=== PATIENT | male | born 1945 | race Caucasian/White ===

== ENCOUNTER 2020-09-29 06:43 | Emergency (ER) | payer OTHER, SELFPAY ==
--- NOTE | ~2020-09-29 | CT_ITS ---
EXAMINATION: CT abdomen pelvis wo con DATE: 09/29/2020 07:22 INDICATION: Flank pain TECHNIQUE: Computed tomography (CT) of the abdomen and pelvis was performed without intravenous contr ast. The dose-length product (DLP) was 761.84 mGy-cm. Automated exposure control and iterative recons truction technique were employed. COMPARISON: None FINDINGS: The lung bases are clear. The heart size is normal. There is a small sliding hiatal hernia. The liver is diffusely low in attenuation when compared with the spleen, consistent with hepatic deloris atosis. Punctate calcifications in an otherwise normal spleen likely represent healed granulomatous d isease. Stones are present in the nondistended gallbladder. The pancreas and adrenal glands are virgin[place] l. There is a 3 mm nonobstructing stone of the left kidney. The right kidney is unremarkable. There i s calcified atherosclerosis of the aorta and many of the other arteries. No pathologically enlarged a bdominal or pelvic lymph nodes are identified. There is no free intraperitoneal gas or evidence of ebonie wel obstruction. There is moderate lumbar spondylosis. Colonic diverticulosis is noted. No definite d iverticulitis is identified. There is mild distention of the urinary bladder. The prostate is enlarge d. The appendix is normal. IMPRESSION: 1. Nonobstructing left nephrolithiasis. Reviewed, dictated and finalized at location A.
[2020-09-29 06:50] VITALS: BP 153/94; PULSE 110; RESP 18; O2SAT 97
[2020-09-29] MEDS: SODIUM CHLORIDE 0.9% IV 1,000 ML 999 ML IV CONT (07:03)
[2020-09-29] MEDS: ONDANSETRON INJ 4 MG/2 ML VIAL IV PUSH (07:03)
[2020-09-29 07:10] LABS: Basophils Absolute Auto 0.1 K/mm3 (0.0-0.1); Basophils Percent Auto 0.3 % (0.2-1.2); Eosinophils Percent Auto 0.1 % (0-4.4); Hematocrit 44.5 % (42.0-52.0); Immature Granulocyte Absolute 0.13 K/mm3 (0.00-0.031); Immature Granulocyte Percent A 0.9 % (0-0.5); Lymphocytes Absolute Auto 3.46 K/mm3 (0.9-3.2); Lymphocytes Percent Auto 23.3 % (18.3-44.2); Mean Corpuscular Hemoglobin 29.9 pg (26-34); Mean Corpuscular Volume 83.2 fl (80-100); Mean Platelet Volume 10.2 fl (7.4-10.4); Monocytes Absolute Auto 1.2 K/mm3 (0.1-0.6); Monocytes Percent Auto 7.7 % (2.6-8.5); Neutrophils Percent Auto 67.7 % (45.5-73.1); Platelet Count Result 345 k/mm3 (150-375); Red Blood Count 5.35 M/mm3 (4.6-6.20); Red Cell Distribution Width 12.7 % (11.5-14.5); White Blood Count 14.8 K/mm3 (4.5-10.0)
[2020-09-29 07:21] LABS: Alanine Aminotransferase 30 U/L (4-50); Albumin Level 4.7 g/dL (3.5-5.1); Alkaline Phosphatase 92 U/L (38-126); Anion Gap 10 mmol/L (8-16); Aspartate Amino Transferase 38 U/L (17-59); Bilirubin,Total 1.5 mg/dL (0.2-1.3); Blood Urea Nitrogen 15 mg/dL (9-20); Calcium 9.8 mg/dL (8.4-10.2); Carbon Dioxide 28 mmol/L (22-30); Chloride 97 mmol/L (98-107); Estimated CRCL calculation 78 ml/min; Estimated Glomerular Filt Rate > 60; Glucose 141 mg/dL (75-110); Lipase 137 U/L (23-300); Potassium 3.4 mmol/L (3.4-5.0); Sodium 135 mmol/L (137-145)
[2020-09-29 07:24] LABS: Add Urine Microscopic? YES; Appearance Urine Cloudy (Clear); Bacteria Urine Trace /hpf; Bilirubin Urine Negative (Negative); Blood Urine Negative (Negative); Color Urine Yellow (Yellow); Glucose Urine UA Negative (Negative); Ketones Urine Negative (Negative); Leukocyte Esterase Ur Negative LEU/UL (Negative); Mucus Urine Rare /lpf; Nitrate Urine Negative (Negative); Protein Urine 1+ mg/dL (Negative); Specific Grav Ur 1.021 (1.001-1.035); WBC Urine 0-3 /hpf
--- NOTE | 2020-09-29 07:41 | ED.ABDPAIN ---
HPI - Abdominal Pain General Chief Complaint: Urogenital-Male Stated Complaint: I think i have a kidney stone Time Seen by Provider: 09/29/20 07:11 Source: patient and family Mode of arrival: ambulatory Limitations: no limitations History of Present Illness HPI narrative: 74-year-old male History of hypertension Complains of a 1 day history of increasing lower abdominal/groin pain along with some difficulty urinating or a feeling like he could alleviate his symptoms by urinating Pain is more or less in the midline and does not lateralize to either flank No associated nausea or vomiting, no hematuria or dysuria, no diarrhea or constipation Related Data Home Medications Medication Instructions Recorded Confirmed atorvastatin 09/29/20 lisinopril 09/29/20 pantoprazole PO 09/29/20 Allergies Allergy/AdvReac Type Severity Reaction Status Date / Time No Known Allergies Allergy Unverified 09/29/20 07:18 Review of Systems Review of Systems: All systems reviewed & are unremarkable except as noted in HPI and below Constitutional: Constitutional: Reports no additional constitutional complaints, Denies chills, Denies fever(s) and Denies headache(s) Eyes: Eyes: Reports no additional eye complaints and Denies change in vision ENT: Denies headache(s) and Denies sore throat Cardiovascular: Cardiovascular: Denies chest pain and Denies dyspnea Respiratory: Respiratory: Denies cough and Denies dyspnea Gastrointestinal: Gastrointestinal: Reports abdominal pain, Reports bloating, Denies diarrhea and Denies vomiting Genitourinary: Genitourinary: Reports oliguria, Denies dysuria and Denies urinary frequency Musculoskeletal: Musculoskeletal: Denies deformity, Denies arthralgias, Denies joint swelling and Denies numbness Integumentary/Breasts: Skin/Breast: Denies rash and Denies wounds Neurologic: Denies headache(s) Psychiatric: Psychiatric: Reports no additional psychiatric complaints Endocrine: Endocrine: Reports no additional endocrine complaints Hematologic/Lymphatic: Hematologic/Lymphatic: Reports no additional hematologic/lymphatic complaints Allergic/Immunologic: Allergic/Immunologic: Reports no additional allergic/immunologic complaints Exam Const: General: cooperative, no acute distress and alert Nutritional Appearance: obese Orientation/consciousness: patient oriented x3 (alert) HENMT: Head: normal to inspection, normocephalic and atraumatic Ears: external ears normal General nose exam: no epistaxis Eyes: Conjunctivae: conjunctivae normal EOM: EOMs intact bilaterally Neck: Neck: normal visual inspection, supple and no JVD Resp: Effort & Inspection: normal respiratory effort and not labored Auscultation: other (BS =) GI: GI Palp: Yes Soft to palpation, Yes Tenderness to palpation present (GI), No Guarding due to palpation present (GI), No Rigid due to palpation and No Rebound tenderness present Other: Mild diffuse tenderness, primarily suprapubic : General: Yes no CVA tenderness Testes: Testes normal Other: Bladder is not palpable but suprapubic area is uncomfortable with palpation Large prostate, not tender, not nodular Skin: General skin exam: normal color and no rashes or lesions noted Neuro: General: patient oriented x3 (alert) and moves all extremities Speech: normal speech Extrem: General: normal to inspection Psych: Affect: normal affect Course Course Emergency Course: ~1000 cc out w/ relief d/w gu for f/u Vital Signs Vital signs: Vital Signs Pulse Rate 110 H 09/29/20 06:50 Respiratory Rate 18 09/29/20 06:50 Blood Pressure 153/94 H 09/29/20 06:50 Pulse Oximetry 97 09/29/20 06:50 Pulse Rate 102 H 09/29/20 08:25 Respiratory Rate 18 09/29/20 08:25 Blood Pressure 139/91 H 09/29/20 08:25 Pulse Oximetry 96 09/29/20 08:25 MDM - Abdominal Pain Lab Data Result diagrams: 09/29/20 07:01 09/29/20 07:01 Labs:
[2020-09-29 08:25] VITALS: BP 139/91; PULSE 102; RESP 18; O2SAT 96
[2020-09-29] MEDS: TAMSULOSIN HCL 0.4 MG CAPSULE PO (08:53)
[2020-09-29 09:05] VITALS: BP 118/81; PULSE 92; RESP 18; O2SAT 99
== END 2020-09-29 09:09 | disposition home or self-care (01) ==
PROVIDERS: Emergency Medicine; Emergency Provider Emergency Medicine
DX: N40.1 Benign prostatic hyperplasia with lower urinary tract symptoms (principal); R33.8 Other retention of urine; I10 Essential (primary) hypertension; N20.0 Calculus of kidney
CPT/HCPCS: 36415; 51702; 74176; 80053; 81001; 83690; 85025; 96361; 96374; 99284; A9270; J2405; J7030

== ENCOUNTER 2021-04-30 01:21 | Emergency (ER) | payer OTHER, SELFPAY ==
--- NOTE | ~2021-04-30 | CT_ITS ---
EXAMINATION: CT cervical spine wo con DATE: 04/30/2021 02:36 INDICATION: Fall with head injury TECHNIQUE: Computed tomography (CT) of the cervical spine was performed without intravenous contrast. Automated exposure control and iterative reconstruction technique were employed. The dose-length pro duct was 477.21 mGy-cm. COMPARISON: None FINDINGS: Mild cervical dextrocurvature. Sagittal alignment is normal. Vertebral body heights are normal. No fr acture. Severe atlantoaxial osteoarthritis. Severe disc height loss at C3-C4, moderate disc height lo ss at C6-C7 and T1-T2. Mild disc height loss at the remaining cervical levels. Mild atherosclerotic c alcification at the bilateral carotid bulbs. Cervical soft tissues are otherwise unremarkable. Visual ized airway and apices of lungs are clear. The following disc levels are specifically discussed: C2-C3: Disc is bulging. There is mild bilateral uncovertebral joint osteoarthritis. There is severe b ilateral facet joint osteoarthritis. There is mild right and mild to moderate left neural foraminal s tenosis. There is mild central canal stenosis. C3-C4: Posterior disc osteophyte complex. There is severe bilateral uncovertebral joint osteoarthriti s. There is moderate right and severe left facet joint osteoarthritis. There is moderate right and mo derate to severe left neural foraminal stenosis. There is mild to moderate central canal stenosis. C4-C5: Disc is bulging. There is mild left and moderate right uncovertebral joint osteoarthritis. The re is moderate right and severe left facet joint osteoarthritis. There is mild bilateral neural brijesh inal stenosis. There is mild central canal stenosis. C5-C6: Disc is mildly bulging. There is mild bilateral uncovertebral joint osteoarthritis. There is m oderate to severe bilateral facet joint osteoarthritis. There is mild bilateral neural foraminal sten osis. There is minimal central canal stenosis. C6-C7: Disc is bulging. There is moderate left and severe right uncovertebral joint osteoarthritis. T here is mild to moderate right and moderate to severe left facet joint osteoarthritis. There is mild to moderate bilateral neural foraminal stenosis. There is mild central canal stenosis. C7-T1: The disc does not extend beyond the endplate margin. There is mild bilateral uncovertebral erica nt osteoarthritis. There is moderate left and severe right facet joint osteoarthritis. There is minim al bilateral neural foraminal stenosis. There is no central canal stenosis. IMPRESSION: 1. Moderate to severe cervical spondylosis. No acute osseous abnormality. Reviewed, dictated and finalized at location B. UNIT OPERATOR
--- NOTE | ~2021-04-30 | XR_ITS ---
EXAMINATION: XR shoulder RT min 2V DATE: 04/30/2021 02:22 INDICATION: Right shoulder pain. TECHNIQUE: 3 views of right shoulder were obtained. COMPARISON: None. FINDINGS: There is anterior dislocation of humeral head with respect to glenoid. There is a displaced oblique fracture of lateral humeral head and surgical neck. There are osteophytes of the glenoid. Th ere is severe acromioclavicular joint osteoarthritis. IMPRESSION: 1. Anterior right shoulder dislocation. 2. Two-part fracture of proximal right humerus. 3. Severe acromioclavicular joint osteoarthritis. Reviewed, dictated and finalized at location A. RAM ASSISTANT
--- NOTE | ~2021-04-30 | CT_ITS ---
EXAMINATION: CT brain wo con DATE: 04/30/2021 02:36 INDICATION: Head injury. TECHNIQUE: Computed tomography (CT) of the head was performed without intravenous contrast. The mA wa s adjusted according to patient size. Iterative reconstruction technique was employed. The dose-lengt h product was 681.00 mGy-cm. COMPARISON: None FINDINGS: There are scattered areas of low attenuation in the cerebral white matter. There is no intr acranial hemorrhage, acute infarction, or abnormal intracranial mass lesion. The ventricles are virgin[place] l in size. There is extensive dental disease. There is mild mucosal thickening in the ethmoid sinuses . The mastoid air cells are normal. The orbits are normal. There is a right frontal scalp laceration. IMPRESSION: 1. Moderate nonspecific cerebral white matter disease, which likely represents chronic small vessel i schemic disease. Reviewed, dictated and finalized at location A. LL ASSEMBLER IMPRESSION: 1. Moderate nonspecific cerebral white matter disease, which likely represents chronic small vessel ischemic disease.
[2021-04-30 01:32] VITALS: BP 181/94; PULSE 83; RESP 20; TEMP 36.1; O2SAT 98
--- NOTE | 2021-04-30 01:59 | PC.NURSE ---
Lidocaine w/ 1% epi per EDP Manolo GOOD
--- NOTE | 2021-04-30 02:38 | ECG_ITS ---
Measurements Intervals [place] Rate: 87 P: 73 FL: 166 QRS: 58 QRSD: 98 T: 93 QT: 397 QTc: 478 Interpretive Statements SINUS RHYTHM ATRIAL PREMATURE COMPLEX INCOMPLETE RIGHT BUNDLE BRANCH BLOCK BORDERLINE ST-T WAVE ABNORMALITY- ANTEROLAT-HIGH LAT LEADS BASELINE ARTIFACT- II, III, AVR, AVL, AVF, V1-V6 BORDERLINE ECG Electronically Signed On 04-30-2021 5:41:39 DIET AIDE by William Ng D.O.
[2021-04-30 03:06] LABS: Basophils Absolute Auto 0.1 K/mm3 (0.0-0.1); Basophils Percent Auto 0.4 % (0.2-1.2); Eosinophils Absolute Auto 0.2 K/mm3 (0-0.3); Eosinophils Percent Auto 0.9 % (0-4.4); Hemoglobin 15.1 g/dL (14.0-18.0); Immature Granulocyte Absolute 0.18 K/mm3 (0.00-0.031); Immature Granulocyte Percent A 1.1 % (0-0.5); Lymphocytes Absolute Auto 3.05 K/mm3 (0.9-3.2); Lymphocytes Percent Auto 19.3 % (18.3-44.2); Mean Corpuscular HGB Conc 35.1 g/dl (32-36); Mean Corpuscular Hemoglobin 31.2 pg (26-34); Mean Corpuscular Volume 88.8 fl (80-100); Mean Platelet Volume 9.7 fl (7.4-10.4); Monocytes Absolute Auto 1.4 K/mm3 (0.1-0.6); Monocytes Percent Auto 8.8 % (2.6-8.5); Neutrophils Percent Auto 69.5 % (45.5-73.1); Platelet Count Result 264 k/mm3 (150-375); Red Blood Count 4.84 M/mm3 (4.6-6.20); Red Cell Distribution Width 12.8 % (11.5-14.5); White Blood Count 15.8 K/mm3 (4.5-10.0)
[2021-04-30] MEDS: MORPHINE SULFATE (*CRX) 4 MG/ML INJ IV PUSH ×2 (03:10→04:13)
[2021-04-30] MEDS: TETANUS,DIPHTHERIA,AC PERTUSSIS ADULT (0.5 ML) BOOSTRIX IM (03:11)
[2021-04-30 03:15] LABS: Alanine Aminotransferase 32 U/L (4-50); Albumin Level 4.4 g/dL (3.5-5.1); Alkaline Phosphatase 83 U/L (38-126); Anion Gap 9 mmol/L (8-16); Aspartate Amino Transferase 33 U/L (17-59); Bilirubin,Total 0.5 mg/dL (0.2-1.3); Blood Urea Nitrogen 15 mg/dL (9-20); Carbon Dioxide 28 mmol/L (22-30); Chloride 96 mmol/L (98-107); Estimated CRCL calculation 73 ml/min; Estimated Glomerular Filt Rate > 60; Glucose 168 mg/dL (65-110); Potassium 3.4 mmol/L (3.4-5.0); Sodium 133 mmol/L (137-145)
[2021-04-30 03:18] VITALS: BP 154/93; PULSE 96; RESP 11; O2SAT 95
[2021-04-30 03:18] LABS: INR 0.9; Prothrombin Time 11.7 Seconds (11.1-14.7)
[2021-04-30 03:19] LABS: Partial Thromboplastin Time 26.8 SECONDS (22.3-36.8)
--- NOTE | 2021-04-30 04:14 | ED.FALL ---
HPI - Fall General Chief Complaint: Fall Stated Complaint: Fall, head lac, right shoulder dislocation Time Seen by Provider: 04/30/21 02:01 Source: patient History of Present Illness HPI Narrative: Patient presents after a fall. Ports he was letting his dog out this evening who is going back to the house he tripped over the step and landed on concrete. Reports that he struck his head and his right shoulder on the concrete denies any focal numbness or weakness. Denies any loss of consciousness. He noted a large amount of blood so he came to the ER for evaluation which his primary concern is his right shoulder is achy reports he cannot move it because it hurts too much and thinks maybe he dislocated it. His pain radiates down his arm. Related Data Home Medications Medication Instructions Recorded Confirmed atorvastatin 09/29/20 lisinopril 09/29/20 pantoprazole PO 09/29/20 Allergies Allergy/AdvReac Type Severity Reaction Status Date / Time No Known Allergies Allergy Verified 04/30/21 01:37 Review of Systems Review of Systems: CONSTITUTIONAL: Denies fever, chills, or sweats. EYES: Denies visual changes, redness, or discharge. ENT: Denies rhinorrhea, congestion, sore throat, or otalgia. CARDIOVASCULAR: Denies chest pain, palpitations, or edema. RESPIRATORY: Denies cough or dyspnea. GASTROINTESTINAL: Denies abdominal pain, nausea, vomiting, or diarrhea. GENITOURINARY: Denies dysuria or hematuria. SKIN: Denies rash or itching. MUSCULOSKELETAL: Denies back pain, or myalgia. NEUROLOGIC: Denies numbness, dizziness, or weakness. PSYCHIATRIC: Denies anxiety or depression. All systems reviewed & are unremarkable except as noted in HPI and below PMFSH Past Medical History Medical History (Updated 04/30/21 @ 04:54 by Sixto French MD) Hypertension Social History Social History (Updated 04/30/21 @ 04:17 by Sixto French MD) Substance use: never Exam Narrative: GENERAL: Well-appearing, well-nourished, and in no acute distress. HEAD: Normocephalic, sick centimeter laceration to the forehead there is galeal involvement frontalis muscle remains intact EYES: PERRLA and EOMI without pain ENT: Nares clear, no rhinorrhea or epistaxis. Mucous membranes moist. NECK: Supple. No masses. No JVD CHEST: Clear to auscultation. No respiratory distress. No wheezes rales or rhonchi HEART: Regular rate and rhythm. No murmur heard. Normal peripheral pulses. ABDOMEN: Soft, nontender, nondistended, normal active bowel sounds. EXTREMITIES: Deformity to the right shoulder noted no open or draining wounds Limited range of motion to the right shoulder due to pain and deformity distal extremity with less than 2-second cap refill SKIN: Warm, dry, no rash. NEURO: Cranial nerves II through XII are intact patient has 5 out of 5 strength in the left upper and bilateral lower extremities. Patient has 5 out of 5 strength in the right upper extremity at the wrist with sensation intact to light touch. Alert and oriented x3. PSYCH: Normal mood and affect. Course Reevaluation(s) Reevaluation #1: Patient was given 6 mL of 1% lidocaine with epinephrine to assist with bleeding control on his forehead laceration Reevaluation #2: Patient excepted to [facility] as a trauma transfer Date: 04/30/21 Time: 04:51 Consultations Consultation #1: Discussed case with Dr. Fox. Patient would benefit from further evaluation at tertiary care facility. Date: 04/30/21 Time: 04:30 Vital Signs Vital signs: Vital Signs Temperature 36.1 C L 04/30/21 01:32 Pulse Rate 83 04/30/21 01:32 Respiratory Rate 20 04/30/21 01:32 Blood Pressure 181/94 H 04/30/21 01:32 Pulse Oximetry 98 04/30/21 01:32 Temperature 36.1 C L 04/30/21 01:32 Pulse Rate 98 04/30/21 06:15 Respiratory Rate 14 04/30/21 06:15 Blood Pressure 160/97 H 04/30/21 06:15 Pulse Oximetry 97 04/30/21 06:15 MDM - Fall MDM Narrative Medical decision making narra
[2021-04-30 04:28] VITALS: BP 153/97; PULSE 94; RESP 14; O2SAT 95
[2021-04-30] MEDS: HYDROmorphone HCL INJ (*CRX) 1 MG/ML SYR 0.5 MG IV PUSH (04:43)
[2021-04-30 05:19] VITALS: BP 161/101; PULSE 99; RESP 14; O2SAT 98
[2021-04-30 06:15] VITALS: BP 160/97; PULSE 98; RESP 14; O2SAT 97
== END 2021-04-30 06:15 | disposition short-term general hospital (02) ==
PROVIDERS: Emergency Provider Emergency Medicine
DX: S01.81XA Laceration without foreign body of other part of head, initial encounter (principal); S42.291A Other displaced fracture of upper end of right humerus, initial encounter for closed fracture; S42.221A 2-part displaced fracture of surgical neck of right humerus, initial encounter for closed fracture; Z23 Encounter for immunization; M19.011 Primary osteoarthritis, right shoulder; I10 Essential (primary) hypertension; I49.1 Atrial premature depolarization; I45.10 Unspecified right bundle-branch block; R94.31 Abnormal electrocardiogram [ECG] [EKG]; W10.9XXA Fall (on) (from) unspecified stairs and steps, initial encounter
CPT/HCPCS: 36415; 70450; 72125; 73030; 80053; 85025; 85610; 85730; 90471; 90715; 93005; 96374; 96375; 96376; 99285; J1170; J2270

== ENCOUNTER 2022-07-06 17:44 | Inpatient (IN) | payer OTHER, SELFPAY ==
[2022-07-06] VITALS (18 sets, daily range): BP systolic 153–182; BP diastolic 85–141; PULSE 84–97; RESP 15–20; TEMP 36.4–36.7; O2SAT 92–97; BMI 37.2
--- NOTE | ~2022-07-06 | CT_ITS ---
EXAMINATION: CT abdomen pelvis w con DATE: 07/06/2022 20:32 INDICATION: scrotal pain and gross hematuria TECHNIQUE: Computed tomography (CT) of the abdomen and pelvis was performed with 100 mL Omnipaque-350 intravenous contrast. Automated exposure control and iterative reconstruction technique were employe d. The dose-length product was 2216.71 mGy-cm. COMPARISON: 09/29/2020. FINDINGS: Lower thorax: Bibasilar scar/atelectasis. Small hiatal hernia. Mild coronary artery calcification. Liver: Steatosis. Biliary/Gallbladder: Cholelithiasis. No bile duct dilation. Pancreas: No mass or duct dilation. Spleen: Normal. Adrenals:No mass. Kidneys: Mild cortical atrophy/scar. Bilateral perinephric stranding. No suspicious mass, obstructing calcification, or hydronephrosis. Moderate distal left ureteral inflammatory stranding. GI tract: No small or large bowel dilation. Normal appendix. Diverticulosis without diverticulitis. Mesentery/Peritoneum: No ascites, mass, or free air. Retroperitoneum: No mass. Atherosclerotic abdominal aortic and/or arterial calcifications. Small sacc ular aneurysm of the distal abdominal aorta. Pelvis: The bladder is decompressed by a Martin catheter. Marked prostatomegaly.. Soft Tissues: Small left and trace right hydroceles. Possible left varicoceles. The scrotum is incomp letely included in the [id number]. Bones: IMPRESSION: Hepatic steatosis. Distal left ureteral stranding may reflect ascending infection from chronic indwel ling catheter. Uroepithelial lesion is not excluded. Incomplete visualization of the scrotum/testes. Small left and trace right hydroceles. Possible left varicoceles. Reviewed, dictated and finalized at location K. DENT ENGINEER IMPRESSION: Hepatic steatosis. Distal left ureteral stranding may reflect ascending infecti on from chronic indwelling catheter. Uroepithelial lesion is not excluded. Inco mplete visualization of the scrotum/testes. Small left and trace right hydrocel es. Possible left varicoceles.
--- NOTE | ~2022-07-06 | US_ITS ---
EXAMINATION: US scrotum doppler DATE: 07/07/2022 15:00 INDICATION: left scrotal pain . TECHNIQUE: Grayscale and Doppler ultrasound images of the testes were obtained. COMPARISON: None. FINDINGS: The right testis measures 4.4 x 2.3 x 3.1 cm. The left testis measures 3.8 x 3.1 x 3.3 cm. No testicular mass. Increased vascular flow in the left testicle. The right epididymis is normal with normal vascular flow. The left epididymis is enlarged, with increased vascular flow. Moderate volume complex left scrotal fluid collection. Left varicocele. IMPRESSION: Hypervascular left testicle with epididymal enlargement and hypervascularity as can be seen with epid idymoorchitis. Complex moderate volume left scrotal fluid collection may represent an infected hydroc pia or hematocele. Moderate left varicocele. Reviewed, dictated and finalized at [facility] K. ORICAL INTERPRETER IMPRESSION: Hypervascular left testicle with epididymal enlargement and hypervascularity as can be seen with epididymoorchitis. Complex moderate volume left scrotal fluid collection may represent an infected hydrocele or hematocele. Moderate left va ricocele.
[2022-07-06 18:58] LABS: Basophils Absolute Auto 0.1 K/mm3 (0.0-0.1); Basophils Percent Auto 0.3 % (0.2-1.2); Eosinophils Absolute Auto 0.1 K/mm3 (0-0.3); Eosinophils Percent Auto 0.3 % (0-4.4); Hemoglobin 15.3 g/dL (14.0-18.0); Immature Granulocyte Absolute 0.13 K/mm3 (0.00-0.031); Immature Granulocyte Percent A 0.8 % (0-0.5); Lymphocytes Absolute Auto 2.09 K/mm3 (0.9-3.2); Lymphocytes Percent Auto 12.1 % (18.3-44.2); Mean Corpuscular Hemoglobin 30.3 pg (26-34); Mean Corpuscular Volume 89.1 fl (80-100); Mean Platelet Volume 10.3 fl (7.4-10.4); Monocytes Absolute Auto 1.5 K/mm3 (0.1-0.6); Monocytes Percent Auto 8.8 % (2.6-8.5); Neutrophils Absolute Auto 13.4 K/mm3 (1.3-6.7); Neutrophils Percent Auto 77.7 % (45.5-73.1); Platelet Count Result 211 k/mm3 (150-375); Red Blood Count 5.05 M/mm3 (4.6-6.20); Red Cell Distribution Width 13.1 % (11.5-14.5); White Blood Count 17.3 K/mm3 (4.5-10.0)
[2022-07-06 19:00] LABS: Appearance Urine Clear (Clear); Bilirubin Urine Negative (Negative); Blood Urine 2+ (Negative); Glucose Urine UA Negative (Negative); Ketones Urine Negative (Negative); Leukocyte Esterase Ur 1+ LEU/UL (Negative); Nitrate Urine Negative (Negative); Protein Urine 2+ mg/dL (Negative); Specific Grav Ur >= 1.030 (1.001-1.035)
[2022-07-06 19:08] LABS: Alanine Aminotransferase 35 U/L (6-50); Albumin Level 4.6 g/dL (3.5-5.1); Alkaline Phosphatase 108 U/L (38-126); Anion Gap 9 mmol/L (8-16); Aspartate Amino Transferase 29 U/L (17-59); Bilirubin,Total 1.1 mg/dL (0.2-1.3); Blood Urea Nitrogen 13 mg/dL (9-20); Calcium 8.9 mg/dL (8.4-10.2); Carbon Dioxide 29 mmol/L (22-30); Chloride 99 mmol/L (98-107); Estimated CRCL calculation 79 ml/min; Estimated Glomerular Filt Rate > 60; Glucose 137 mg/dL (65-110); Potassium 3.9 mmol/L (3.4-5.0); Sodium 137 mmol/L (137-145)
[2022-07-06 19:12] LABS: Bacteria Urine Trace /hpf; RBC Urine >75 /hpf (0-2); WBC Urine >75 /hpf
[2022-07-06 19:16] LABS: Add Urine Microscopic? YES; Color Urine Light Red (Yellow)
[2022-07-06] MEDS: MORPHINE SULFATE (*CRX) 4 MG/ML INJ IV PUSH (19:31)
[2022-07-06] MEDS: LIDOCAINE HCL 2% GEL UROJET 10 ML PKG MUCOUS MEM (19:37)
--- NOTE | 2022-07-06 19:52 | PC.NURSE ---
While pushing IV morphine 4 mg, Pt had itching and red streaking at IV site and reported burning. IV administration stopped and IV aspirated and then flushed with saline. Dr. Hebert notified and new order placed. Rest of morphine wasted with Wally Hernandez RN.
[2022-07-06] MEDS: diphenhydrAMINE HCl INJ 50 MG/ML VIAL 25 MG IV PUSH (19:55)
[2022-07-06] MEDS: fentaNYL CITRATE INJ (*CRX) 100 MCG/2 ML VIAL 50 MCG IV PUSH (19:56)
--- NOTE | 2022-07-06 21:29 | PM.IMHP ---
H&P: HPI History of Present Illness Date/Time: 07/06/22 21:29 Chief Complaint: Back pain Narrative: This is a 76-year-old male with past medical history significant for obesity, hypertension, benign prostatic hyperplasia dyslipidemia, atrial fibrillation rate controlled anticoagulated. Patient presents to the emergency room due to back pain and testicular pain, according to patient his has been in his usual state of health up until today he has been eating his meals denies any nausea, vomiting, diarrhea, fevers, rigors, chills but according to who is at bedside he has been complaining of back pain for the last couple of days or so. Preliminary workup [place] [id number], CT of abdomen and pelvis was reported as: FINDINGS: Lower thorax: Bibasilar scar/atelectasis. Small hiatal hernia. Mild coronary artery calcification. Liver: Steatosis.? Biliary/Gallbladder: Cholelithiasis. No bile duct dilation. Pancreas: No mass or duct dilation. Spleen: Normal. Adrenals:No mass. Kidneys: Mild cortical atrophy/scar. Bilateral perinephric stranding. No suspicious mass, obstructing calcification, or hydronephrosis. Moderate distal left ureteral inflammatory stranding. GI tract: No small or large bowel dilation. Normal appendix. Diverticulosis without diverticulitis. Mesentery/Peritoneum: No ascites, mass, or free air. Retroperitoneum: No mass. Atherosclerotic abdominal aortic and/or arterial calcifications. 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 Pelvis: The bladder is decompressed by a Martin catheter. Marked prostatomegaly.. Soft Tissues: Small left and trace right hydroceles. Possible left varicoceles. The scrotum is incompletely included in the [id number]. Bones: IMPRESSION: Hepatic steatosis. Distal left ureteral stranding may reflect ascending infection from chronic indwelling catheter. Uroepithelial lesion is not excluded. Incomplete visualization of the scrotum/testes. Small left and trace right hydroceles. Possible left varicoceles. Review of Systems Review of Systems: Back pain, testicular pain, abdominal pain. Constitutional: Constitutional: Denies chills, Denies fever(s), Denies malaise, Denies night sweats, Denies poor appetite and Denies weakness Eyes: Eyes: Denies change in vision ENT: Denies dysphagia and Denies odynophagia Cardiovascular: Cardiovascular: Denies chest pain, Denies leg edema, Denies radiating jaw, neck or arm pain and Denies palpitations Respiratory: Respiratory: Denies chest congestion, Denies excessive phlegm production, Denies pain on inspiration, Denies dyspnea and Denies dyspnea on exertion Gastrointestinal: Gastrointestinal: Reports abdominal pain, Denies dyspepsia, Denies heartburn, Denies diarrhea, Denies nausea and Denies vomiting Genitourinary: Genitourinary: Reports other (Testicular pain) Musculoskeletal: Musculoskeletal: Reports back pain Integumentary/Breasts: Skin/Breast: Denies rash Neurologic: Denies focal weakness and Denies Sensory deficit (Neuro) Psychiatric: Psychiatric: Reports no additional psychiatric complaints and Reports as per HPI Endocrine: Endocrine: Denies cold intolerance, Denies flushing, Denies heat intolerance, Denies polyphagia, Denies polydipsia and Denies palpitations Hematologic/Lymphatic: Hematologic/Lymphatic: Reports no additional hematologic/lymphatic complaints and Reports as per HPI Allergic/Immunologic: Allergic/Immunologic: Reports no additional allergic/immunologic complaints and Reports as per HPI PMFSH Past Medical History Medical History (Updated 07/06/22 @ 22:52 by Jayme De La Cruz MD) Hypertension Social History Social History (Updated 04/30/21 @ 04:17 by Sixto FrenchMD) Smoking status: Former smoker Smoking end date: 08/23/05 Alcohol intake: current Substance use: never Lack of Transportation: No Lack of Food: Never True Current Housing: I Have Housing Concerned Abo
--- NOTE | 2022-07-06 21:36 | ED.MALEGU ---
HPI - Male Genitourinary General Chief complaint: Urogenital-Male Stated complaint: Scrotal swelling, blood in urine, painful urinatio Time Seen by Provider: 07/06/22 18:05 History of Present Illness HPI Narrative: Patient states that for the past 2 days he has had some pain with urination, this morning started having pretty bad pain and swelling to the scrotum, with blood in his urine. Also some discomfort to the suprapubic abdomen. Having some nausea. Related Data Home Medications Medication Instructions Recorded Confirmed atorvastatin 10 mg tablet 09/29/20 lisinopril 5 mg tablet 09/29/20 pantoprazole 40 mg tablet,delayed PO 09/29/20 release Allergies Allergy/AdvReac Type Severity Reaction Status Date / Time No Known Allergies Allergy Verified 07/06/22 19:43 Review of Systems Review of Systems: CONST: No fever. HEENT: No sore throat C/V: No chest pain RESP: No cough GI: Reports abdominal pain, nausea, vomiting : Dysuria. M/S: No joint pain. SKIN: No rash. NEURO: [No headache or focal numbness or weakness] PSYCH: [No depression] [facility] Past Medical History Medical History (Updated 07/06/22 @ 22:06 by Verenice Hebert MD) Hypertension Social History Social History (Updated 04/30/21 @ 04:17 by Sixto FrenchMD) Substance use: never Exam Narrative: EXAMINATION OF ORGAN SYSTEMS/BODY AREAS: Constitutional: Vital signs per nursing GENERAL: Appears quite uncomfortable in bed HEAD: Normal with no signs of head trauma. EYES: EOMI, conjunctiva normal ENT: Hearing grossly intact LUNGS: Nonlabored breathing. HEART: [Regular rate and rhythm] ABD: [Soft], [tender to palpation] suprapubic : Pain bilateral scrotum, cremasteric reflex intact, no high riding testes EXT: Normal range of motion SKIN: [No rashes or lesions.] NEURO: [Alert and oriented x 3. No gross focal sensory or strength deficits.] PSYCH: Normal affect Course Vital Signs Vital signs: Vital Signs Temperature 97.5 F L 07/06/22 17:51 Pulse Rate 86 07/06/22 17:51 Respiratory Rate 16 07/06/22 17:51 Blood Pressure 182/85 H 07/06/22 17:51 Pulse Oximetry 95 07/06/22 17:51 Oxygen Delivery Room Air 07/06/22 17:51 Temperature 97.5 F L 07/06/22 17:51 Pulse Rate 95 07/06/22 21:46 Respiratory Rate 18 07/06/22 21:46 Blood Pressure 172/111 H 07/06/22 21:46 Pulse Oximetry 93 07/06/22 21:46 Oxygen Delivery Room Air 07/06/22 17:51 MDM - Male Genitourinary MDM Narrative Medical decision making narrative: 76yoM p/w hematuria, dysuria and scrotal pain, VSS and on exam has tenderness of bilateral scrotum, not high riding, no obvious skin changes or severe tenderness, some blood at the meatus, also some tenderness to the suprapubic abdomen, I suspect possible UTI or urinary retention, possible nephrolithiasis, very unlikely torsion given pain is bilateral scrotum with intact cremasteric reflex, less likely prostatitis without any rectal pain. Labs notable for UA that is grossly bloody with WBCs, suspicious for possible UTI, labs notable for white count of 17 consistent with this, CT abdomen pelvis showing perinephric stranding consistent with UTI, with some varicocele versus hydrocele. On reevaluation, patient is feeling much better, still some mild tenderness to bilateral scrotum, he is started on antibiotics. Case discussed with hospitalist for admission. Lab Data 07/06/22 18:45 07/06/22 18:45 Labs: Lab Results 07/06/22 07/06/22 07/06/22 Range/Units 18:45 18:45 18:47 WBC 17.3 H (4.5-10.0) K/mm3 RBC 5.05 (4.6-6.20) M/mm3 Hgb 15.3 (14.0-18.0) g/dL Hct 45.0 (42.0-52.0) % MCV 89.1 (80-100) fl MCH 30.3 (26-34) pg MCHC 34.0 (32-36) g/dl RDW 13.1 (11.5-14.5) % Plt Count 211 (150-375) k/mm3 MPV 10.3 (7.4-10.4) fl Immature Gran % (Auto) 0.8 H (0-0.5) % Neut % (Auto) 77.7 H (45.5-73.1) % Lymph % (Auto)
[2022-07-06 23:08] LABS: Influenza A QL RT-PCR Negative (Negative); Influenza B QL RT-PCR Negative (Negative); SARS-CoV-2 RNA PCR Negative
--- NOTE | 2022-07-06 23:28 | ADMGEN ---
This patient, Gonzalo Dugan, was admitted to [facility] Surg Room 300-01. Patient/family oriented to hospital policies and general routines including ID bracelet, bed and alarms, visiting hours, pain management, procedures, bathroom and other care routines, personal items, smoking policy, room service/diet, and visiting hours. Information on how to activate the Rapid Response Team has been discussed. Patient/Family are encouraged to report perceived risks to care and to ask questions if they do not understand what they are told or what they should do.
[2022-07-07 06:00] VITALS: BP 152/79; PULSE 95; RESP 18; TEMP 36.4; O2SAT 93
[2022-07-07 06:24] LABS: Basophils Absolute Auto 0.1 K/mm3 (0.0-0.1); Basophils Percent Auto 0.2 % (0.2-1.2); Hematocrit 45.4 % (42.0-52.0); Hemoglobin 15.4 g/dL (14.0-18.0); Immature Granulocyte Absolute 0.27 K/mm3 (0.00-0.031); Immature Granulocyte Percent A 1.1 % (0-0.5); Lymphocytes Absolute Auto 2.36 K/mm3 (0.9-3.2); Lymphocytes Percent Auto 9.8 % (18.3-44.2); Mean Corpuscular HGB Conc 33.9 g/dl (32-36); Mean Corpuscular Hemoglobin 30.3 pg (26-34); Mean Corpuscular Volume 89.4 fl (80-100); Mean Platelet Volume 10.7 fl (7.4-10.4); Monocytes Absolute Auto 2.7 K/mm3 (0.1-0.6); Monocytes Percent Auto 11.1 % (2.6-8.5); Neutrophils Absolute Auto 18.8 K/mm3 (1.3-6.7); Neutrophils Percent Auto 77.8 % (45.5-73.1); Platelet Count Result 231 k/mm3 (150-375); Red Blood Count 5.08 M/mm3 (4.6-6.20); White Blood Count 24.1 K/mm3 (4.5-10.0)
[2022-07-07 06:48] LABS: Anion Gap 10 mmol/L (8-16); Blood Urea Nitrogen 13 mg/dL (9-20); Carbon Dioxide 27 mmol/L (22-30); Chloride 100 mmol/L (98-107); Estimated CRCL calculation 80 ml/min; Estimated Glomerular Filt Rate > 60; Glucose 137 mg/dL (65-110); Potassium 3.7 mmol/L (3.4-5.0); Sodium 137 mmol/L (137-145)
[2022-07-07 08:30] VITALS: PULSE 96
[2022-07-07] MEDS: METOPROLOL SUCCINATE EXT REL 50 MG TABCR PO (08:30)
[2022-07-07] MEDS: PANTOPRAZOLE 40 MG TABLET PO (08:31)
[2022-07-07] MEDS: PARoxetine 20 MG TABLET PO (08:31)
[2022-07-07] MEDS: ATORVASTATIN 10 MG TABLET PO (08:31)
[2022-07-07] MEDS: IPRATROPIUM NASAL SPRAY 0.03% 15 ML BOTTLE 2 SPRAY NASAL ×2 (08:31→21:00)
--- NOTE | 2022-07-07 09:04 | PM.IMPN ---
Progress Note: A&P Assessment and Plan (1) Pyelonephritis, acute: Code(s): N10 - Acute pyelonephritis Status: Acute Assessment and Plan: UA positive for infection. CT suggests bilateral pyelonephritis and varicocele. With gross hematuria. Patient received ceftriaxone emergency room Urology consulted and appreciate recommendations. 3-way leung catheter with PRN irrigation for pain, pressure or low urine output. Started Zosyn 3.375 mg IV Q6 hours. Deescalate antibiotics pending urine and blood cultures. WBC 17 to 24 with bandemia. Trend CBC Procalcitonin 0.3 repeat in 48 hours. CRP 6.7 repeat in 48 hour Holding Eliquis for hematuria Continue supportive care (2) Abdominal pain: Qualifiers: Abdominal location: left lower quadrant Qualified Code(s): R10.32 - Left lower quadrant pain Code(s): R10.9 - Unspecified abdominal pain Status: Acute Assessment and Plan: Likely secondary to pyelonephritis and hydrocele vs varicocele CT of abdomen and pelvis which does show cholelithiasis without cholecystitis and hepatic steatosis suggestive of JI Continue management for UTI. Check scrotal US. Low fat diet after evaluated by Urology. Monitor diet tolerance. (3) Hypertension: Qualifiers: Hypertension type: primary hypertension Qualified Code(s): I10 - Essential (primary) hypertension Code(s): I10 - Essential (primary) hypertension Status: Acute Assessment and Plan: Chronic, BP 152/79. Continue metoprolol XL. Continue to monitor. (4) Hepatic steatosis: Code(s): K76.0 - Fatty (change of) liver, not elsewhere classified Status: Chronic Assessment and Plan: Incidental finding. Does not appear to be cause of abdominal pain. Low fat diet. Check lipid panel. We discussed weight loss. (5) Cholelithiases: Qualifiers: Cholelithiasis location: gallbladder Cholecystitis presence: without cholecystitis Biliary obstruction: without biliary obstruction Qualified Code(s): K80.20 - Calculus of gallbladder without cholecystitis without obstruction Code(s): K80.20 - Calculus of gallbladder without cholecystitis without obstruction Status: Chronic Assessment and Plan: Incidental finding. No RUQ abdominal pain. Negative Bang's sign. Low fat diet and monitor intake. (6) Abdominal aneurysm without mention of rupture: Code(s): I71.40 - Abdominal aortic aneurysm, without rupture, unspecified Status: Chronic Assessment and Plan: Incidental finding. small saccular aneurysm noted on CT. Monitor. No surgical intervention needed at this time. Hemodynamically stable. No bruit noted on exam. Plan CODE STATUS: FULL CODE Discharge disposition: Consult PT/OT. patient is from home. Time Spent With Patient Time: 40 minutes Subjective Date/time seen: 07/07/22 09:04 Interval history: Patient is a 76-year-old male with obesity, hypertension, benign prostatic hyperplasia dyslipidemia, and atrial fibrillation on Eliquis.?He presented to the emergency room for evaluation of lower back and testicular pain. He is a fair historian and reports the pain has been present for several days. In the Ed, he was afebrile but hypertensive. UA was positive for acute infection and CT scan suggests bilateral pyelonephritis with left varicocele versus hydrocele. He was admitted for antibiotic therapy and Urology evaluation. He reports moderate to severe left testicular pain. No fever, chills, or rigors. He reports prior lower abdominal pain and the urge to push down on his catheter. Nursing staff had to irrigate the leung catheter for possible clots. Xarelto is on hold. Review of Systems Review of Systems: All systems reviewed & are unremarkable except as noted in HPI and below Exam Narrative: General: No acute distress.?Obese older adult male lying in bed. BMI 37.2 kg/m2 Men
[2022-07-07 09:46] LABS: CRP 6.7 mg/dL (<1.0)
[2022-07-07] MEDS: MORPHINE SULFATE (*CRX) 2 MG/ML INJ IV PUSH ×3 (10:14→17:39)
[2022-07-07 10:31] LABS: Procalcitonin 0.3 ng/mL
[2022-07-07 13:29] LABS: Hemoglobin A1C 5.7 % (<5.7)
[2022-07-07 14:00] VITALS: BP 121/75; PULSE 76; RESP 20; TEMP 36.6; O2SAT 93
--- NOTE | 2022-07-07 14:13 | WPDURCON ---
Assessment and Plan Assessment and plan (1) Orchitis and epididymitis: Code(s): N45.3 - Epididymo-orchitis Status: Acute Plan Add scrotal support Await culture results and treat for 2 weeks Will need king in for 1 week due to high likelihood of bladder outlet obstruction causing the orchitis and potentially prostatitis Stay on the Flomax May eat Will start Toradol for pain and swelling Urology Consult Note HPI Date Seen: 07/07/22 Requesting Physician: Jayme De La Cruz MD Primary Care Provider: PHYSICIAN NOT ON STAFF Consult Narrative Narrative: Gonzalo Dugan is a 76 year old male found to have orchalgia and suprapubic pain on presentation to the ER yesterday. King was placed which helped the suprapubic pain. Orchalgia however still continues. CT noted left distal ureter stranding with king indwelling in the bladder. Patient noted hematuria as well. He has been seen in our office by Dr Casas a few years ago and was offered Flomax which patient did not want to take for his voiding symptoms. Patient denies trauma to scrotum but he was doing some straining prior to onset of pain and had sat on his scrotum as well. CT did not reveal any hydro or stones. PMFSH Past Medical History Medical History Hypertension Social History Social History Smoking status: Former smoker Smoking end date: 08/23/05 Alcohol intake: current Substance use: never Lack of Transportation: No Lack of Food: Never True Current Housing: I Have Housing Concerned About Future Housing: No Difficulty Paying Gas/Electric Bills: No Difficulty Paying for Meds: No Currently Unemployed: No Education: Trade/Vocational Certificate Difficulty w/ Childcare or Family Care: No Spiritual care concerns: No Meds Home Medications and Allergies Home Medications Medication Instructions Recorded Confirmed Type atorvastatin 10 mg tablet 10 mg PO DAILY 09/29/20 07/06/22 History pantoprazole 40 mg tablet,delayed 40 mg PO DAILY 09/29/20 07/06/22 History release tamsulosin 0.4 mg capsule (Flomax) 0.4 mg PO HS #30 caps 09/29/20 07/06/22 Rx apixaban 5 mg tablet (Eliquis) 5 mg PO Q12H 07/06/22 07/06/22 History furosemide 20 mg tablet 20 mg PO DAILY 07/06/22 07/06/22 History ipratropium bromide 21 mcg (0.03 2 spray intranasal Q12H 07/06/22 07/06/22 History %) nasal spray metoprolol succinate 50 mg 50 mg PO DAILY 07/06/22 07/06/22 History tablet,extended release 24 hr paroxetine HCl 20 mg tablet 20 mg PO DAILY 07/06/22 07/06/22 History Allergies Allergy/AdvReac Type Severity Reaction Status Date / Time No Known Allergies Allergy Verified 07/06/22 19:43 Vital Signs Vital Signs - 24 hr 07/06/22 17:51 07/06/22 19:49 07/06/22 20:00 Temperature 36.4 C L Pulse Rate 86 84 84 Respiratory Rate 16 20 19 Blood Pressure 182/85 H Pulse Oximetry 95 94 92 Oxygen Delivery Room Air 07/06/22 21:15 07/06/22 21:16 07/06/22 21:28 Temperature Pulse Rate 93 93 92 Respiratory Rate 16 15 17 Blood Pressure 156/141 H 168/102 H Pulse Oximetry 93 93 93 Oxygen Delivery 07/06/22 21:30 07/06/22 21:31 07/06/22 21:45 Temperature Pulse Rate 92 91 93 Respiratory Rate 18 17 18 Blood Pressure 162/118 H Pulse Oximetry 93 93 93 Oxygen Delivery 07/06/22 21:46 07/06/22 21:47 07/06/22 22:00 Temperature Pulse Rate 95 90 92 Respiratory Rate 18 17 17 Blood Pressure 172/111 H Pulse Oximetry 93 93 93 Oxygen Delivery 07/06/22 22:01 07/06/22 22:15 07/06/22 22:30 Temperature Pulse Rate 91 93 93 Respiratory Rate 17 17 18 Blood Pressure 163/91 H Pulse Oximetry 93 93 93 Oxygen Delivery 07/06/22 22:32 07/06/22 22:45 07/06/22 23:32 Temperature 36.7 C Pulse Rate 94 92 97 Respiratory Rate 17 16 20 Blood Pressure 153/89 H 156/92 H Pulse Oximetry
[2022-07-07] MEDS: HYDROcodone/acetaminophen (*CRX) 5-325 MG TABLET 1 TAB PO ×2 (14:45→23:24)
[2022-07-07] MEDS: KETOROLAC 15 MG/ML VIAL (*BKC) IV PUSH (14:45)
[2022-07-07] MEDS: TAMSULOSIN HCL 0.4 MG CAPSULE PO (21:00)
[2022-07-07 22:00] VITALS: BP 120/71; PULSE 73; RESP 19; TEMP 36.8; O2SAT 94
[2022-07-08] MEDS: MORPHINE SULFATE (*CRX) 2 MG/ML INJ IV PUSH ×2 (04:01→13:49)
[2022-07-08 05:50] LABS: Basophils Absolute Auto 0.1 K/mm3 (0.0-0.1); Basophils Percent Auto 0.3 % (0.2-1.2); Eosinophils Absolute Auto 0.1 K/mm3 (0-0.3); Eosinophils Percent Auto 0.5 % (0-4.4); Hematocrit 42.3 % (42.0-52.0); Hemoglobin 14.4 g/dL (14.0-18.0); Immature Granulocyte Absolute 0.21 K/mm3 (0.00-0.031); Lymphocytes Absolute Auto 3.29 K/mm3 (0.9-3.2); Lymphocytes Percent Auto 15.3 % (18.3-44.2); Mean Corpuscular Hemoglobin 30.8 pg (26-34); Mean Corpuscular Volume 90.4 fl (80-100); Mean Platelet Volume 10.7 fl (7.4-10.4); Monocytes Percent Auto 9.2 % (2.6-8.5); Neutrophils Absolute Auto 15.9 K/mm3 (1.3-6.7); Neutrophils Percent Auto 73.7 % (45.5-73.1); Platelet Count Result 191 k/mm3 (150-375); Red Blood Count 4.68 M/mm3 (4.6-6.20); Red Cell Distribution Width 13.4 % (11.5-14.5); White Blood Count 21.5 K/mm3 (4.5-10.0)
[2022-07-08 06:00] VITALS: BP 148/80; PULSE 82; RESP 20; TEMP 36.3; O2SAT 93
[2022-07-08 06:07] LABS: Alanine Aminotransferase 26 U/L (6-50); Albumin Level 4.3 g/dL (3.5-5.1); Alkaline Phosphatase 82 U/L (38-126); Anion Gap 11 mmol/L (8-16); Aspartate Amino Transferase 21 U/L (17-59); Bilirubin,Total 1.7 mg/dL (0.2-1.3); Blood Urea Nitrogen 28 mg/dL (9-20); Calcium 8.9 mg/dL (8.4-10.2); Carbon Dioxide 28 mmol/L (22-30); Chloride 100 mmol/L (98-107); Cholesterol 161 mg/dL (0-200); Estimated CRCL calculation 49 ml/min; Estimated Glomerular Filt Rate 46; Glucose 129 mg/dL (65-110); HDL Direct 41 mg/dL; Potassium 3.4 mmol/L (3.4-5.0); Sodium 139 mmol/L (137-145); Triglycerides 93 mg/dL (<150)
[2022-07-08 06:10] LABS: LDL Cholesterol Direct 76 mg/dL
[2022-07-08 07:03] LABS: Folic Acid 11.4 ng/mL (2.76->20)
[2022-07-08 08:41] VITALS: O2SAT 93
[2022-07-08] MEDS: HYDROcodone/acetaminophen (*CRX) 5-325 MG TABLET 1 TAB PO (08:45)
--- NOTE | 2022-07-08 08:56 | PM.IMPN ---
Progress Note: A&P Assessment and Plan (1) Pyelonephritis, acute: Code(s): N10 - Acute pyelonephritis Status: Acute Assessment and Plan: UA positive for infection. CT suggests bilateral pyelonephritis and varicocele. With gross hematuria. Patient received ceftriaxone emergency room Urology consulted and appreciate recommendations. 3-way leung catheter with PRN irrigation for pain, pressure or low urine output. Off CBI 07/08/22 Started Zosyn 3.375 mg IV Q6 hours. Urine culture shows enterobacter growth resistant to unasyn and ancef. Sensitive to Rocephin, however, likely amp-c inducible resistance. Will transition to cefepime which is preferred agent for now with plan to transition to Bactrim DS at discharge to complete total 10-14 day course if SHLOMO resolved. Avoid fluoroquinolones due to incidental finding of small saccular aneurysm in distal abdominal aorta on CT scan this admission. WBC 17- 24 with bandemia to 21,5. Trend CBC Procalcitonin 0.3 repeat in 48 hours. CRP 6.7 repeat in 48 hour Holding Eliquis for hematuria- resume in 24 hours if H/H stable and hematuria continues to improve. Continue supportive care (2) Abdominal pain: Qualifiers: Abdominal location: left lower quadrant Qualified Code(s): R10.32 - Left lower quadrant pain Code(s): R10.9 - Unspecified abdominal pain Status: Acute Assessment and Plan: Likely secondary to pyelonephritis and hydrocele vs varicocele CT of abdomen and pelvis which does show cholelithiasis without cholecystitis and hepatic steatosis suggestive of JI Continue management for UTI. Check scrotal US. Low fat diet after evaluated by Urology. Monitor diet tolerance. (3) Hypertension: Qualifiers: Hypertension type: primary hypertension Qualified Code(s): I10 - Essential (primary) hypertension Code(s): I10 - Essential (primary) hypertension Status: Acute Assessment and Plan: Chronic, BP 152/79. Continue metoprolol XL. Continue to monitor. (4) Hepatic steatosis: Code(s): K76.0 - Fatty (change of) liver, not elsewhere classified Status: Chronic Assessment and Plan: Incidental finding. Does not appear to be cause of abdominal pain. Low fat diet. Check lipid panel. We discussed weight loss. (5) Cholelithiases: Qualifiers: Biliary obstruction: without biliary obstruction Cholecystitis presence: without cholecystitis Cholelithiasis location: gallbladder Qualified Code(s): K80.20 - Calculus of gallbladder without cholecystitis without obstruction Code(s): K80.20 - Calculus of gallbladder without cholecystitis without obstruction Status: Chronic Assessment and Plan: Incidental finding. No RUQ abdominal pain. Negative Bang's sign. Low fat diet and monitor intake. (6) Abdominal aneurysm without mention of rupture: Code(s): I71.40 - Abdominal aortic aneurysm, without rupture, unspecified Status: Chronic Assessment and Plan: Incidental finding. small saccular aneurysm noted on CT. Monitor. No surgical intervention needed at this time. Hemodynamically stable. No bruit noted on exam. (7) Orchitis and epididymitis: Code(s): N45.3 - Epididymo-orchitis Status: Acute Assessment and Plan: scrotal US -Hypervascular left testicle with epididymal enlargement, which can be seen with epididymoorchitis. Complex moderate volume left scrotal fluid collection may represent an infected hydrocele or hematocele. Moderate left varicocele. urology following scrotal support pain control. SHERIDAN suppository unavailable on formulary Plan CODE STATUS: FULL CODE Discharge disposition: Consult PT/OT. patient is from home. Time Spent With Patient Time: 30 min time spent reviewing chart, imaging, labs, patient assessment, monitoring response to treatment plan and educating patient and family. Subjective
[2022-07-08 10:29] VITALS: PULSE 80
[2022-07-08] MEDS: PANTOPRAZOLE 40 MG TABLET PO (10:29)
[2022-07-08] MEDS: METOPROLOL SUCCINATE EXT REL 50 MG TABCR PO (10:29)
[2022-07-08] MEDS: ATORVASTATIN 10 MG TABLET PO (10:30)
[2022-07-08] MEDS: PARoxetine 20 MG TABLET PO (10:30)
[2022-07-08] MEDS: SODIUM CHLORIDE 0.9% IV 1,000 ML 100 ML IV CONT ×2 (10:32→20:46)
[2022-07-08 13:37] VITALS: BP 126/78; PULSE 81; RESP 18; TEMP 36.2; O2SAT 96
[2022-07-08] MEDS: HYOSCYAMINE SULFATE 0.125 MG TABLET PO (16:57)
[2022-07-08 17:41] LABS: Procalcitonin 0.4 ng/mL
[2022-07-08] MEDS: IPRATROPIUM NASAL SPRAY 0.03% 15 ML BOTTLE 2 SPRAY NASAL (20:42)
[2022-07-08] MEDS: TAMSULOSIN HCL 0.4 MG CAPSULE PO (20:43)
[2022-07-08 21:36] VITALS: BP 139/78; PULSE 88; RESP 18; TEMP 36.8; O2SAT 96
[2022-07-09 06:00] VITALS: BP 125/79; PULSE 78; RESP 18; TEMP 36.6; O2SAT 95
[2022-07-09 07:30] LABS: Basophils Absolute Auto 0.1 K/mm3 (0.0-0.1); Basophils Percent Auto 0.3 % (0.2-1.2); Eosinophils Absolute Auto 0.4 K/mm3 (0-0.3); Eosinophils Percent Auto 2.5 % (0-4.4); Hematocrit 40.3 % (42.0-52.0); Hemoglobin 13.4 g/dL (14.0-18.0); Immature Granulocyte Absolute 0.16 K/mm3 (0.00-0.031); Immature Granulocyte Percent A 1.1 % (0-0.5); Lymphocytes Absolute Auto 3.07 K/mm3 (0.9-3.2); Lymphocytes Percent Auto 20.7 % (18.3-44.2); Mean Corpuscular HGB Conc 33.3 g/dl (32-36); Mean Corpuscular Hemoglobin 30.5 pg (26-34); Mean Corpuscular Volume 91.6 fl (80-100); Monocytes Absolute Auto 1.6 K/mm3 (0.1-0.6); Monocytes Percent Auto 10.6 % (2.6-8.5); Neutrophils Absolute Auto 9.6 K/mm3 (1.3-6.7); Neutrophils Percent Auto 64.8 % (45.5-73.1); Platelet Count Result 179 k/mm3 (150-375); Red Cell Distribution Width 13.3 % (11.5-14.5); White Blood Count 14.8 K/mm3 (4.5-10.0)
[2022-07-09 07:45] LABS: Albumin Level 3.9 g/dL (3.5-5.1); Anion Gap 5 mmol/L (8-16); Blood Urea Nitrogen 28 mg/dL (9-20); Calcium 8.3 mg/dL (8.4-10.2); Carbon Dioxide 28 mmol/L (22-30); Chloride 105 mmol/L (98-107); Estimated CRCL calculation 66 ml/min; Estimated Glomerular Filt Rate > 60; Glucose 107 mg/dL (65-110); Magnesium 2.1 mg/dL (1.6-2.3); Phosphorus 2.9 mg/dL (2.5-4.5); Potassium 3.4 mmol/L (3.4-5.0); Sodium 138 mmol/L (137-145)
[2022-07-09] MEDS: HYDROcodone/acetaminophen (*CRX) 5-325 MG TABLET 1 TAB PO (08:35)
[2022-07-09 08:36] VITALS: PULSE 76
[2022-07-09] MEDS: METOPROLOL SUCCINATE EXT REL 50 MG TABCR PO (08:36)
[2022-07-09] MEDS: PARoxetine 20 MG TABLET PO (08:36)
[2022-07-09] MEDS: ATORVASTATIN 10 MG TABLET PO (08:37)
[2022-07-09] MEDS: PANTOPRAZOLE 40 MG TABLET PO (08:37)
--- NOTE | 2022-07-09 08:54 | PM.IMPN ---
Progress Note: A&P Assessment and Plan (1) Pyelonephritis, acute: Code(s): N10 - Acute pyelonephritis Status: Acute Assessment and Plan: UA positive for infection. CT suggests bilateral pyelonephritis and varicocele. With gross hematuria. Patient received ceftriaxone emergency room Urology consulted and appreciate recommendations. 3-way leung catheter with PRN irrigation for pain, pressure or low urine output. Off CBI 07/08/22 Treated with Zosyn 3.375 mg IV Q6 hours 07/07 to 07/08 Urine culture shows enterobacter growth resistant to unasyn and ancef. Sensitive to Rocephin, however, likely amp-c inducible resistance. 07/08 transitioned to cefepime which is preferred agent for now with plan to transition to Bactrim DS at discharge to complete total 10-14 day course if SHLOMO resolved. Avoid fluoroquinolones due to incidental finding of small saccular aneurysm in distal abdominal aorta on CT scan this admission. WBC downtrending 14.8, Procalcitonin 0.3 to 0.4, CRP 6.7 to 16- mixed picture on infection management. Continue IV Cefepime today (07/09/22) and transition to oral tomorrow if improving. Held Eliquis for hematuria- resume tomorrow morning. Continue supportive care (2) Abdominal pain: Qualifiers: Abdominal location: left lower quadrant Qualified Code(s): R10.32 - Left lower quadrant pain Code(s): R10.9 - Unspecified abdominal pain Status: Acute Assessment and Plan: Likely secondary to pyelonephritis and hydrocele vs varicocele CT of abdomen and pelvis which does show cholelithiasis without cholecystitis and hepatic steatosis suggestive of JI Continue management for UTI. scrotal US - epididymoorchitis. Moderate left varicocele. Low fat diet after evaluated by Urology. Monitor diet tolerance. (3) Hypertension: Qualifiers: Hypertension type: primary hypertension Qualified Code(s): I10 - Essential (primary) hypertension Code(s): I10 - Essential (primary) hypertension Status: Acute Assessment and Plan: Chronic, BP 152/79. Continue metoprolol XL. Continue to monitor. (4) Hepatic steatosis: Code(s): K76.0 - Fatty (change of) liver, not elsewhere classified Status: Chronic Assessment and Plan: Incidental finding. Does not appear to be cause of abdominal pain. Low fat diet. lipid panel - LDL 76, HDL 41, Triglycerides 93. Stable. We discussed weight loss. check hepatitis panel. (5) Cholelithiases: Qualifiers: Biliary obstruction: without biliary obstruction Cholecystitis presence: without cholecystitis Cholelithiasis location: gallbladder Qualified Code(s): K80.20 - Calculus of gallbladder without cholecystitis without obstruction Code(s): K80.20 - Calculus of gallbladder without cholecystitis without obstruction Status: Chronic Assessment and Plan: Incidental finding. No RUQ abdominal pain. Negative Bang's sign. Low fat diet and monitor intake. Follow up outpatient. (6) Abdominal aneurysm without mention of rupture: Code(s): I71.40 - Abdominal aortic aneurysm, without rupture, unspecified Status: Chronic Assessment and Plan: Incidental finding. small saccular aneurysm noted on CT. Monitor. No surgical intervention needed at this time. Hemodynamically stable. No bruit noted on exam. Avoid fluoroquinolones. (7) Orchitis and epididymitis: Code(s): N45.3 - Epididymo-orchitis Status: Acute Assessment and Plan: scrotal US -Hypervascular left testicle with epididymal enlargement, which can be seen with epididymoorchitis. Complex moderate volume left scrotal fluid collection may represent an infected hydrocele or hematocele. Moderate left varicocele. urology following scrotal support pain control. SHERIDAN suppository unavailable on formulary Plan CODE STATUS: FULL CODE Discharge disposition: Consult PT/OT. patient is from
[2022-07-09] MEDS: HYOSCYAMINE SULFATE 0.125 MG TABLET PO (13:01)
[2022-07-09 14:00] VITALS: BP 150/79; PULSE 69; RESP 20; TEMP 36.4; O2SAT 96
[2022-07-09] MEDS: IPRATROPIUM NASAL SPRAY 0.03% 15 ML BOTTLE 2 SPRAY NASAL (20:37)
[2022-07-09] MEDS: TAMSULOSIN HCL 0.4 MG CAPSULE PO (20:37)
[2022-07-09 22:00] VITALS: BP 155/76; PULSE 73; RESP 18; TEMP 36.2; O2SAT 94
[2022-07-10 06:00] VITALS: BP 140/72; PULSE 63; RESP 18; TEMP 36.5; O2SAT 95
[2022-07-10 07:51] LABS: Basophils Absolute Auto 0.1 K/mm3 (0.0-0.1); Basophils Percent Auto 0.6 % (0.2-1.2); Eosinophils Absolute Auto 0.4 K/mm3 (0-0.3); Eosinophils Percent Auto 3.6 % (0-4.4); Hematocrit 37.6 % (42.0-52.0); Hemoglobin 12.7 g/dL (14.0-18.0); Immature Granulocyte Absolute 0.29 K/mm3 (0.00-0.031); Immature Granulocyte Percent A 2.6 % (0-0.5); Lymphocytes Absolute Auto 2.76 K/mm3 (0.9-3.2); Mean Corpuscular HGB Conc 33.8 g/dl (32-36); Mean Corpuscular Hemoglobin 30.4 pg (26-34); Mean Platelet Volume 10.9 fl (7.4-10.4); Monocytes Absolute Auto 1.2 K/mm3 (0.1-0.6); Monocytes Percent Auto 10.6 % (2.6-8.5); Neutrophils Absolute Auto 6.3 K/mm3 (1.3-6.7); Neutrophils Percent Auto 57.6 % (45.5-73.1); Platelet Count Result 196 k/mm3 (150-375); Red Blood Count 4.18 M/mm3 (4.6-6.20); Red Cell Distribution Width 13.2 % (11.5-14.5)
[2022-07-10 08:02] LABS: Alanine Aminotransferase 29 U/L (6-50); Albumin Level 3.7 g/dL (3.5-5.1); Alkaline Phosphatase 72 U/L (38-126); Anion Gap 7 mmol/L (8-16); Aspartate Amino Transferase 27 U/L (17-59); Bilirubin,Total 1.1 mg/dL (0.2-1.3); Blood Urea Nitrogen 18 mg/dL (9-20); CRP 7.2 mg/dL (<1.0); Calcium 8.3 mg/dL (8.4-10.2); Carbon Dioxide 28 mmol/L (22-30); Chloride 106 mmol/L (98-107); Estimated CRCL calculation 80 ml/min; Estimated Glomerular Filt Rate > 60; Glucose 102 mg/dL (65-110); Potassium 3.4 mmol/L (3.4-5.0); Sodium 141 mmol/L (137-145)
[2022-07-10 08:21] LABS: Procalcitonin 0.1 ng/mL
[2022-07-10] MEDS: PANTOPRAZOLE 40 MG TABLET PO (08:31)
[2022-07-10] MEDS: METOPROLOL SUCCINATE EXT REL 50 MG TABCR PO (08:32)
[2022-07-10] MEDS: ATORVASTATIN 10 MG TABLET PO (08:32)
[2022-07-10] MEDS: PARoxetine 20 MG TABLET PO (08:33)
[2022-07-10] MEDS: IPRATROPIUM NASAL SPRAY 0.03% 15 ML BOTTLE 2 SPRAY NASAL (08:34)
[2022-07-10 08:36] LABS: Hepatitis B Surface Antigen Negative (Negative)
[2022-07-10 08:42] LABS: HAV RESULT Negative (Negative); Hepatitis B Core IgM Result Negative (Negative)
[2022-07-10 08:53] LABS: Hepatitis C Virus Antibody Negative (Negative)
--- NOTE | 2022-07-10 13:02 | P.DS_ITS ---
DS: Admitting Diagnosis Discharge Date 07/10/2022 Admitting Diagnosis Pyelonephritis DS: Discharge Diagnosis Discharge Diagnosis (1) Pyelonephritis, acute: Code(s): N10 - Acute pyelonephritis Status: Acute Assessment and Plan: patient presented with dysuria and hematuria. UA positive for infection. CT suggests bilateral pyelonephritis and varicocele. Patient received ceftriaxone emergency room * Seen in consultation by Urology during admission * CBI during admission which was discontinued on 07/08 * received IV Zosyn while awaiting urine culture results. * Urine culture with growth of >100k Enterobacter and patient was transitioned to IV cefepime * switched to p.o. Bactrim following discharge to complete 2 week course per Urology recommendations * leukocytosis With marked improvement. CRP with downward trend. Patient remained afebrile * Eliquis initially held due to hematuria which was resumed at time of discharge given resolution (2) Orchitis and epididymitis: Code(s): N45.3 - Epididymo-orchitis Status: Acute Assessment and Plan: scrotal US showed hypervascular left testicle with epididymal enlargement, which can be seen with epididymoorchitis. Complex moderate volume left scrotal fluid collection may represent an infected hydrocele or hematocele. Moderate left varicocele. * patient seen in consultation by Urology * continue with 2 week course of antibiotic * continue with Martin catheter for 1 week. Outpatient follow-up in 1 week for voiding trial * continue tamsulosin * supportive care provided * continue scrotal support (3) Abdominal pain: Qualifiers: Abdominal location: left lower quadrant Qualified Code(s): R10.32 - Left lower quadrant pain Code(s): R10.9 - Unspecified abdominal pain Status: Resolved Assessment and Plan: Likely due to above findings. * CT of abdomen and pelvis showed cholelithiasis without cholecystitis and hepatic steatosis suggestive of JI. felt to be incidental and not contributing to symptoms * pain resolved with management of UTI * supportive care provided (4) Hypertension: Qualifiers: Hypertension type: primary hypertension Qualified Code(s): I10 - Essential (primary) hypertension Code(s): I10 - Essential (primary) hypertension Status: Acute Assessment and Plan: blood pressure is controlled during admission * Continue metoprolol XL. (5) Hepatic steatosis: Code(s): K76.0 - Fatty (change of) liver, not elsewhere classified Status: Chronic Assessment and Plan: Incidental finding on CT. * not felt to be source of abdominal pain * patient was educated on dietary and lifestyle modifications * hepatitis panel negative (6) Cholelithiases: Qualifiers: Cholelithiasis location: gallbladder Cholecystitis presence: without cholecystitis Biliary obstruction: without biliary obstruction Qualified Code(s): K80.20 - Calculus of gallbladder without cholecystitis without obstruction Code(s): K80.20 - Calculus of gallbladder without cholecystitis without obstruction Status: Chronic Assessment and Plan: Incidental finding. No RUQ abdominal pain. * Negative Bang's sign. * continue with low-fat diet * no need for intervention at this time. Continue with outpatient follow-up (7) Abdominal aneurysm without mention of rupture: Code(s): I71.40 - Abdominal aortic aneurysm, without rupture, unspecifi
--- NOTE | 2022-07-10 13:02 | PM.DS ---
DS: Admitting Diagnosis Discharge Date 07/10/2022 Admitting Diagnosis Pyelonephritis DS: Discharge Diagnosis Discharge Diagnosis (1) Pyelonephritis, acute: Code(s): N10 - Acute pyelonephritis Status: Acute Assessment and Plan: patient presented with dysuria and hematuria. UA positive for infection. CT suggests bilateral pyelonephritis and varicocele. Patient received ceftriaxone emergency room Seen in consultation by Urology during admission CBI during admission which was discontinued on 07/08 received IV Zosyn while awaiting urine culture results. Urine culture with growth of >100k Enterobacter and patient was transitioned to IV cefepime switched to p.o. Bactrim following discharge to complete 2 week course per Urology recommendations leukocytosis With marked improvement. CRP with downward trend. Patient remained afebrile Eliquis initially held due to hematuria which was resumed at time of discharge given resolution (2) Orchitis and epididymitis: Code(s): N45.3 - Epididymo-orchitis Status: Acute Assessment and Plan: scrotal US showed hypervascular left testicle with epididymal enlargement, which can be seen with epididymoorchitis. Complex moderate volume left scrotal fluid collection may represent an infected hydrocele or hematocele. Moderate left varicocele. patient seen in consultation by Urology continue with 2 week course of antibiotic continue with Martin catheter for 1 week. Outpatient follow-up in 1 week for voiding trial continue tamsulosin supportive care provided continue scrotal support (3) Abdominal pain: Qualifiers: Abdominal location: left lower quadrant Qualified Code(s): R10.32 - Left lower quadrant pain Code(s): R10.9 - Unspecified abdominal pain Status: Resolved Assessment and Plan: Likely due to above findings. CT of abdomen and pelvis showed cholelithiasis without cholecystitis and hepatic steatosis suggestive of JI. felt to be incidental and not contributing to symptoms pain resolved with management of UTI supportive care provided (4) Hypertension: Qualifiers: Hypertension type: primary hypertension Qualified Code(s): I10 - Essential (primary) hypertension Code(s): I10 - Essential (primary) hypertension Status: Acute Assessment and Plan: blood pressure is controlled during admission Continue metoprolol XL. (5) Hepatic steatosis: Code(s): K76.0 - Fatty (change of) liver, not elsewhere classified Status: Chronic Assessment and Plan: Incidental finding on CT. not felt to be source of abdominal pain patient was educated on dietary and lifestyle modifications hepatitis panel negative (6) Cholelithiases: Qualifiers: Cholelithiasis location: gallbladder Cholecystitis presence: without cholecystitis Biliary obstruction: without biliary obstruction Qualified Code(s): K80.20 - Calculus of gallbladder without cholecystitis without obstruction Code(s): K80.20 - Calculus of gallbladder without cholecystitis without obstruction Status: Chronic Assessment and Plan: Incidental finding. No RUQ abdominal pain. Negative Bang's sign. continue with low-fat diet no need for intervention at this time. Continue with outpatient follow-up (7) Abdominal aneurysm without mention of rupture: Code(s): I71.40 - Abdominal aortic aneurysm, without rupture, unspecified Status: Chronic Assessment and Plan: Incidental finding. small saccular aneurysm noted on CT. Monitor. No surgical intervention needed at this time. patient remained hemodynamically stable avoid fluoroquinolones follow-up with PCP for continued surveillance DS: Summary Hospital Course Hospital Course: Date of admission 07/06/2022 Date of discharge: 07/10/2022 Gonzalo Dugan is a 76-year-old male with
[2022-07-10 13:46] VITALS: BP 119/72; PULSE 68; RESP 18; TEMP 36.3; O2SAT 95
== END 2022-07-10 14:50 | disposition home or self-care (01) | DRG 728 ==
LOC: ANHED 22:06 → ANH3MEDSUR 22:55
PROVIDERS: Emergency Medicine; Nurse Practitioner Family; Admitting Provider Internal Medicine; Emergency Provider Emergency Medicine; Visit Provider Physician Assistant
DX: N45.3 Epididymo-orchitis (principal); N10 Acute pyelonephritis; I48.20 Chronic atrial fibrillation, unspecified; I10 Essential (primary) hypertension; I71.40 Abdominal aortic aneurysm, without rupture, unspecified; N40.0 Benign prostatic hyperplasia without lower urinary tract symptoms; K75.81 Nonalcoholic steatohepatitis (NASH); K80.20 Calculus of gallbladder without cholecystitis without obstruction; E78.5 Hyperlipidemia, unspecified; E66.9 Obesity, unspecified; B96.89 Other specified bacterial agents as the cause of diseases classified elsewhere; Z20.822 Contact with and (suspected) exposure to COVID-19; Z87.891 Personal history of nicotine dependence
CPT/HCPCS: 36415; 74177; 76870; 80048; 80053; 80061; 80069; 80074; 81001; 82607; 82746; 83036; 83735; 84145; 85025; 86140; 87040; 87077; 87086; 87186; 87636; 93976; 96361; 96365; 96366; 96375; 96376; 97161; 97165; 97530; 97535; 99285; A9270; G0378; J0692; J0696; J1200; J1885; J2270; J2543; J3010; J7030; Q9967

== ENCOUNTER 2023-06-29 12:29 | Emergency (ER) | payer OTHER, SELFPAY ==
[2023-06-29 13:15] VITALS: BP 174/83; PULSE 95; RESP 20; TEMP 36.1; O2SAT 96
--- NOTE | 2023-06-29 13:59 | ED.GENADULT ---
HPI - General Adult General Chief complaint: Fall Stated complaint: Fall Time Seen by Provider: 06/29/23 14:01 Source: patient and family Mode of arrival: ambulatory Limitations: other ( Poor historian) History of Present Illness HPI narrative: Patient presents for evaluation of low back pain and right hip pain. He indicates he was walking down steps approximately 1 week ago and stepped on ice. He fell and landed on the concrete. He states he hit his head but did not have loss of consciousness. He also has back against the ground. He is anticoagulated with Eliquis. He initially told me he saw his PCP yesterday. When asked to clarify as yesterday was a Friday, he states it very well could have been Friday. He states he had x-rays and was told that they were negative. He has continued to experience sharp pain in the lower back and right hip that he rates 10/10 in severity. He has some numbness and tingling in his feet but that is not new. He denies saddle anesthesia. had episode of urinary incontinence in her waiting room and then another episode when in the restroom here. He states over last few days he has had urinary frequency, dribbling and decreased force of stream. These are new symptoms for him. He has been ambulating since the time of his fall. Related Data Home Medications Medication Instructions Recorded Confirmed atorvastatin 10 mg tablet 10 mg PO DAILY 09/29/20 07/06/22 pantoprazole 40 mg tablet,delayed 40 mg PO DAILY 09/29/20 07/06/22 release apixaban 5 mg tablet (Eliquis) 5 mg PO Q12H 07/06/22 07/06/22 furosemide 20 mg tablet 20 mg PO DAILY 07/06/22 07/06/22 ipratropium bromide 21 mcg (0.03 2 spray intranasal Q12H 07/06/22 07/06/22 %) nasal spray metoprolol succinate 50 mg 50 mg PO DAILY 07/06/22 07/06/22 tablet,extended release 24 hr paroxetine HCl 20 mg tablet 20 mg PO DAILY 07/06/22 07/06/22 Allergies Allergy/AdvReac Type Severity Reaction Status Date / Time No Known Allergies Allergy Verified 07/06/22 19:43 Review of Systems Review of Systems: CONSTITUTIONAL: Denies fever, chills, or sweats. EYES: Denies visual changes, redness, or discharge. ENT: Denies rhinorrhea, congestion, sore throat, or otalgia. CARDIOVASCULAR: Denies chest pain, palpitations, or edema. RESPIRATORY: Denies cough or dyspnea. GASTROINTESTINAL: Denies abdominal pain, nausea, vomiting, or diarrhea. GENITOURINARY: Reports urinary frequency, decreased force of urinary stream, dribbling and two episodes of incontinence SKIN: Denies rash or itching. MUSCULOSKELETAL: Reports low back pain and right hip pain. NEUROLOGIC: Denies headache, numbness, dizziness, or weakness. PSYCHIATRIC: Denies anxiety or depression. [facility] Past Medical History Medical History Atrial fibrillation Hypertension Surgical History Surgical History Surgical history unknown Family History Family History Mother Family history non-contributory Social History Social History Smoking status: Former smoker Smoking end date: 08/23/05 Alcohol intake: current Substance use: never Lack of Transportation: No Lack of Food: Never True Current Housing: I Have Housing Concerned About Future Housing: No Difficulty Paying Gas/Electric Bills: No Difficulty Paying for Meds: No Currently Unemployed: No Education: Trade/Vocational Certificate Difficulty w/ Childcare or Family Care: No Spiritual care concerns: No Exam Narrative: GENERAL: Well-appearing, well-nourished, and in no acute distress. HEAD: Normocephalic, atraumatic. EYES: PERRLA and EOMI. ENT: Nares clear, no rhinorrhea or epistaxis. Mucous membranes moist. Oropharynx without tonsillar hypertrophy exudate or other l
== END 2023-06-29 14:27 | disposition short-term general hospital (02) ==
PROVIDERS: Emergency Provider Nurse Practitioner
DX: M54.50 Low back pain, unspecified (principal); I16.0 Hypertensive urgency; N39.498 Other specified urinary incontinence; Z87.891 Personal history of nicotine dependence; I48.91 Unspecified atrial fibrillation; I10 Essential (primary) hypertension
CPT/HCPCS: 99211; 99212; G0463

== ENCOUNTER 2023-06-29 15:36 | Observation (INO) | payer OTHER, SELFPAY ==
--- NOTE | ~2023-06-29 | CT_ITS ---
EXAMINATION: CT abd pelvis lumbar w con, CT thoracic spine wo con DATE: 06/29/2023 18:49 INDICATION: abd pain, fall, anticoagulation, low back pain TECHNIQUE: Computed tomography (CT) of the abdomen and pelvis and thoracic and lumbar spine was perfo rmed with 100 mL Omnipaque-350 intravenous contrast. Automated exposure control and iterative reconst ruction technique were employed. The dose-length product was 1373.40 (accession [id number]), 1441 .66 (accession [id number]) mGy-cm. COMPARISON: CT abdomen pelvis 07/06/2022. FINDINGS: Lower thorax: Moderate hiatal hernia. Coronary artery calcification. Liver: Diffuse fatty infiltration. Biliary/Gallbladder: Cholelithiasis, without inflammatory change. No bile duct dilation. Pancreas: No mass or duct dilation. Spleen: Normal. Adrenals:No mass. Kidneys: Punctate nonobstructing bilateral calcifications. No suspicious mass. Mild bilateral uretere ctasis and periureteral stranding. GI tract: No small or large bowel dilation. Normal appendix. Diverticulosis without diverticulitis. Mesentery/Peritoneum: No ascites, mass, or free air. Retroperitoneum: No mass. Atherosclerotic abdominal aortic and/or arterial calcifications. Small stab le saccular aneurysm of the distal abdominal aorta. Pelvis: Marked urinary bladder dilation without wall thickening. Marked prostatomegaly. Soft Tissues: Soft tissues and body wall unremarkable. Bones (excluding spine): No acute osseous finding. THORACIC SPINE: Vertebral body alignment intact. Vertebral body heights preserved. Multilevel moderate degenerative d isc disease. Flowing ossification of the anterior longitudinal ligament as can be seen with DISH. No traumatic malalignment or fracture. Visualized lung parenchyma is clear. LUMBAR SPINE: 5 nonrib-bearing lumbar-type vertebral bodies. Partially formed disc at S1-S2. Pedicles intact. Marce l vertebral body alignment. Mild height loss and acute appearing superior endplate deformity and L2. Multilevel severe degenerative disc disease and facet arthropathy. Severe bilateral neural foraminal narrowing at L4-5 and L5-S1. Severe narrowing of the thecal sac at L4-5. Epidural lipomatosis. IMPRESSION: No acute traumatic finding in the abdomen or pelvis. Hepatic steatosis. Bilateral ureterectasis and perinephric stranding may represent distention from urinary retention, as cending infection is not excluded. Markedly distended urinary bladder, correlate for history/findings of urinary retention. Acute-appearing superior endplate fracture and mild wedge deformity at L2. Reviewed, dictated and finalized at location K. D RECORDIST IMPRESSION: No acute traumatic finding in the abdomen or pelvis. Hepatic steatosis. Bilateral ureterectasis and perinephric stranding may represent distention from urinary retention, ascending infection is not excluded. Markedly distended urinary bladder, correlate for history/findings of urinary r etention. Acute-appearing superior endplate fracture and mild wedge deformity at L2.
--- NOTE | ~2023-06-29 | CT_ITS ---
EXAMINATION: CT brain wo con DATE: 06/29/2023 18:49 INDICATION: head injury, anticoagulation . TECHNIQUE: Computed tomography (CT) of the head was performed without intravenous contrast. The mA wa s adjusted according to patient size. Iterative reconstruction technique was employed. The dose-lengt h product was 605.33 mGy-cm. COMPARISON: None. FINDINGS: No acute intracranial hemorrhage or extra-axial fluid collection. No hydrocephalus, mass, or herniation. No acute ischemic infarct. Unremarkable dural venous sinus attenuation. No acute osseous abnormality. The aerated spaces are clear. Moderate atrophy and chronic white matter change. Atherosclerotic intracranial calcification. Basilar dolichoectasia. IMPRESSION: No acute intracranial process. Reviewed, dictated and finalized at location K. L BUFFER
--- NOTE | ~2023-06-29 | MR_ITS ---
EXAMINATION: MR lumbar spine wo/w con DATE: 06/30/2023 09:09 INDICATION: L2 fracture. Urinary retention. TECHNIQUE: Magnetic resonance imaging (MRI) of the lumbar spine was performed without and with 20 mL MultiHance intravenous contrast. COMPARISON: CT 06/29/2023 FINDINGS: There is 7 degrees dextrocurvature of lumbar spine. There is a burst fracture of L2 with 1/ 5 loss of height, low signal fracture line, and edema-like marrow signal intensity. There is severely decreased disc height at L4-L5 and L5-S1. Epidural lipomatosis is noted. The distal spinal cord sign al intensity is normal. The conus medullaris is at L1-L2. There is ankylosis of the sacroiliac joints . The following disc levels are specifically discussed: L1-L2: The disc does not extend beyond the endplate margin. There is mild right and moderate left fac et joint osteoarthritis. There is no neural foraminal stenosis. There is mild central canal stenosis. L2-L3: The disc is bulging. There is severe bilateral facet joint osteoarthritis. There is mild bilat eral neural foraminal stenosis. There is mild central canal stenosis. L3-L4: The disc is bulging. There is severe right and moderate left facet joint osteoarthritis. There is mild bilateral neural foraminal stenosis. There is mild central canal stenosis. L4-L5: The disc is bulging and has an annular fissure. There is severe bilateral facet joint osteoart hritis. There is mild right and moderate left neural foraminal stenosis. There is moderate central ca nal stenosis. L5-S1: The disc is bulging and has an annular fissure. There is severe bilateral facet joint osteoart hritis. There is mild bilateral neural foraminal stenosis. There is no central canal stenosis. IMPRESSION: 1. Acute versus subacute L2 burst fracture. 2. Severe lumbar spondylosis. Reviewed, dictated and finalized at location E. LY SERVICES MANAGER
--- NOTE | ~2023-06-29 | CT_ITS ---
EXAMINATION: CT cervical spine wo con DATE: 06/29/2023 18:49 INDICATION: head injury TECHNIQUE: Computed tomography (CT) of the cervical spine was performed without intravenous contrast. Automated exposure control and iterative reconstruction technique were employed. The dose-length pro duct was 442.72 mGy-cm. COMPARISON: 04/30/2021. FINDINGS: Vertebral Body Alignment: Intact. Trace, stable anterolistheses at C2-3 and C4-5. Craniocervical and atlantoaxial alignment: Severe degenerative change. Alignment intact. Osseous structures/fracture: No evidence of a lytic or blastic process in the visualized spine. No e vidence of acute fracture. Cervical soft tissues: The paraspinal soft tissues planes are maintained. Degenerative changes: Multilevel degenerative disc disease, severe at C3-4. Moderate central canal na rrowing at C3-4 and severe bilateral neural foraminal narrowing. Multilevel severe facet arthropathy. IMPRESSION: No acute fracture or traumatic malalignment in the cervical spine. Reviewed, dictated and finalized at location K. OR SYSTEMS ANALYST
[2023-06-29 15:40] VITALS: BP 192/91; PULSE 90; RESP 18; TEMP 36.7; O2SAT 95
--- NOTE | 2023-06-29 17:52 | ED.BACK ---
HPI - Back Pain/Injury General Chief Complaint: Back Pain/Injury Stated Complaint: low back pain Time Seen by Provider: 06/29/23 17:11 Source: patient Mode of arrival: ambulatory Limitations: no limitations History of Present Illness HPI Narrative: This is a 77 year old male that presents to the emergency department after a fall 1 week ago with back pain. Reports he slipped and fell on the ice. He did hit his head, denies loss of consciousness. Reports since he has had worsening low back pain, hip pain, as well as lower abdominal pain. He is evaluated by his primary provider and had some x-rays that were without acute findings. Reports he has had some urinary incontinence, which he believes is new. Denies visual changes, vomiting, bowel incontinence, focal numbness or weakness. Related Data Home Medications Medication Instructions Recorded Confirmed atorvastatin 10 mg tablet 10 mg PO DAILY 09/29/20 07/06/22 pantoprazole 40 mg tablet,delayed 40 mg PO DAILY 09/29/20 07/06/22 release apixaban 5 mg tablet (Eliquis) 5 mg PO Q12H 07/06/22 07/06/22 furosemide 20 mg tablet 20 mg PO DAILY 07/06/22 07/06/22 ipratropium bromide 21 mcg (0.03 2 spray intranasal Q12H 07/06/22 07/06/22 %) nasal spray metoprolol succinate 50 mg 50 mg PO DAILY 07/06/22 07/06/22 tablet,extended release 24 hr paroxetine HCl 20 mg tablet 20 mg PO DAILY 07/06/22 07/06/22 Allergies Allergy/AdvReac Type Severity Reaction Status Date / Time No Known Allergies Allergy Verified 06/29/23 15:37 Review of Systems Review of Systems: CONSTITUTIONAL: Denies fever EYES: Denies visual changes CARDIOVASCULAR: Denies chest pain GASTROINTESTINAL: Reports abdominal pain. Denies nausea, vomiting MUSCULOSKELETAL: Reports back pain, joint pain, and myalgia. NEUROLOGIC: Denies numbness, or weakness. All systems reviewed & are unremarkable except as noted in HPI and below PMFSH Past Medical History Medical History (Updated 06/29/23 @ 21:35 by Ritu Mckeon PA-C) Atrial fibrillation Hypertension Surgical History Surgical History Surgical history unknown Family History Family History Mother Family history non-contributory Social History Social History Smoking status: Former smoker Smoking end date: 08/23/05 Alcohol intake: current Substance use: never Lack of Transportation: No Lack of Food: Never True Current Housing: I Have Housing Concerned About Future Housing: No Difficulty Paying Gas/Electric Bills: No Difficulty Paying for Meds: No Currently Unemployed: No Education: Trade/Vocational Certificate Difficulty w/ Childcare or Family Care: No Spiritual care concerns: No Exam Narrative: GENERAL: Well-appearing, well-nourished, and in no acute distress. HEAD: Normocephalic, atraumatic. EYES: PERRLA and EOMI. ENT: Nares clear, no rhinorrhea or epistaxis. Mucous membranes moist. Oropharynx without tonsillar hypertrophy exudate or other lesions. Bilateral TMs pearly elena non-bulging NECK: Supple. No adenopathy or masses. CHEST: Clear to auscultation. No respiratory distress. No wheezes rales or rhonchi HEART: Regular rate and rhythm. No murmur heard. Normal peripheral pulses. ABDOMEN: Soft, nontender, nondistended, normal active bowel sounds. BACK: Tender to palpation of midline lower thoracic and lumbar spine EXTREMITIES: Normal range of motion. No edema. Strength equal in bilateral upper and lower extremities (5/5) SKIN: Warm, dry, no rash. NEURO: No focal deficits. Alert and oriented x3. Cranial nerves 2-12 grossly intact PSYCH: Normal mood and affect Course Course Emergency Course: Patient and family updated on workup and recommendation for admission Consultations Consultation #1: Spoke with neurosurgery about jimmy
[2023-06-29 17:54] LABS: Basophils Absolute Auto 0.1 K/mm3 (0.0-0.1); Basophils Percent Auto 0.4 % (0.2-1.2); Hematocrit 43.7 % (42.0-52.0); Hemoglobin 15.3 g/dL (14.0-18.0); Immature Granulocyte Absolute 0.28 K/mm3 (0.00-0.031); Immature Granulocyte Percent A 1.4 % (0-0.5); Lymphocytes Absolute Auto 3.62 K/mm3 (0.9-3.2); Lymphocytes Percent Auto 18.1 % (18.3-44.2); Mean Corpuscular Hemoglobin 30.4 pg (26-34); Mean Corpuscular Volume 86.9 fl (80-100); Mean Platelet Volume 9.9 fl (7.4-10.4); Monocytes Absolute Auto 2.2 K/mm3 (0.1-0.6); Monocytes Percent Auto 11.1 % (2.6-8.5); Neutrophils Absolute Auto 13.8 K/mm3 (1.3-6.7); Platelet Count Result 305 k/mm3 (150-375); Red Blood Count 5.03 M/mm3 (4.6-6.20)
[2023-06-29 18:06] LABS: Alanine Aminotransferase 40 U/L (6-50); Albumin Level 4.4 g/dL (3.5-5.1); Alkaline Phosphatase 129 U/L (38-126); Anion Gap 11 mmol/L (8-16); Aspartate Amino Transferase 52 U/L (17-59); Bilirubin,Total 1.6 mg/dL (0.2-1.3); Blood Urea Nitrogen 21 mg/dL (9-20); Calcium 9.7 mg/dL (8.4-10.2); Carbon Dioxide 23 mmol/L (22-30); Chloride 97 mmol/L (98-107); Estimated CRCL calculation 57 ml/min; Estimated Glomerular Filt Rate 54; Glucose 130 mg/dL (65-110); Potassium 4.1 mmol/L (3.4-5.0); Sodium 131 mmol/L (137-145)
[2023-06-29] MEDS: MORPHINE SULFATE (*CRX) 4 MG/ML INJ IV PUSH ×2 (18:11→23:23)
[2023-06-29] MEDS: ONDANSETRON INJ 4 MG/2 ML VIAL IV PUSH (18:11)
[2023-06-29 18:18] VITALS: BP 179/96; PULSE 87; RESP 18; O2SAT 94
[2023-06-29 20:39] LABS: Appearance Urine Clear (Clear); Bacteria Urine None Seen /hpf; Bilirubin Urine Negative (Negative); Blood Urine 3+ (Negative); Color Urine Yellow (Yellow); Glucose Urine UA Negative (Negative); Ketones Urine Negative (Negative); Leukocyte Esterase Ur Negative LEU/UL (Negative); Nitrate Urine Negative (Negative); Non Pathogenic Casts 0-2; Protein Urine Negative (Negative); RBC Urine 21-50 /hpf (0-2); Specific Grav Ur 1.016 (1.001-1.035); Squamous Epithelial Cell Urine None seen /hpf (Few); Urobilinogen Urine 0.2 mg/dL (<2.0); WBC Urine 0-5 /hpf; pH Urine 5.5 (5.0-9.0)
[2023-06-29 20:40] LABS: Add Urine Microscopic? YES
[2023-06-29 20:46] VITALS: BP 146/89; PULSE 92; RESP 16; O2SAT 94
--- NOTE | 2023-06-29 22:45 | ADMGEN ---
This patient, Gonzalo Dugan, was admitted to 3 [facility] Surg Room 317-01. Patient/family oriented to hospital policies and general routines including ID bracelet, bed and alarms, visiting hours, pain management, procedures, bathroom and other care routines, personal items, smoking policy, room service/diet, and visiting hours. Information on how to activate the Rapid Response Team has been discussed. Patient/Family are encouraged to report perceived risks to care and to ask questions if they do not understand what they are told or what they should do.
[2023-06-29 23:01] VITALS: BP 121/83; PULSE 99; RESP 20; TEMP 36.3; O2SAT 94
[2023-06-29 23:03] VITALS: BMI 38.5
[2023-06-29] MEDS: HYDROcodone/acetaminophen (*CRX) 5-325 MG TABLET 1 TAB PO (23:23)
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
[2023-06-30 05:29] VITALS: BP 129/74; PULSE 90; RESP 18; TEMP 36.2; O2SAT 90
[2023-06-30] MEDS: HYDROcodone/acetaminophen (*CRX) 5-325 MG TABLET 1 TAB PO ×4 (05:48→22:16)
[2023-06-30 06:53] LABS: Hematocrit 44.6 % (42.0-52.0); Hemoglobin 14.7 g/dL (14.0-18.0); Mean Corpuscular Hemoglobin 29.8 pg (26-34); Mean Corpuscular Volume 90.5 fl (80-100); Mean Platelet Volume 10.1 fl (7.4-10.4); Platelet Count Result 262 k/mm3 (150-375); Red Blood Count 4.93 M/mm3 (4.6-6.20); Red Cell Distribution Width 13.2 % (11.5-14.5); White Blood Count 15.7 K/mm3 (4.5-10.0)
[2023-06-30 06:58] LABS: Anion Gap 7 mmol/L (8-16); Blood Urea Nitrogen 24 mg/dL (9-20); Calcium 9.2 mg/dL (8.4-10.2); Carbon Dioxide 32 mmol/L (22-30); Chloride 98 mmol/L (98-107); Estimated CRCL calculation 57 ml/min; Estimated Glomerular Filt Rate 54; Glucose 105 mg/dL (65-110); Potassium 3.5 mmol/L (3.4-5.0); Sodium 137 mmol/L (137-145)
[2023-06-30 07:24] LABS: Lymphocytes Absolute Manual 5.65 K/mm3 (1.1-4.5); Monocytes Absolute Manual 1.25 K/mm3 (0.1-0.90); Monocytes Percent Manual 8 % (3-9); Neutrophils Percent Manual 56 % (46-73); Total Cells Counted 100
[2023-06-30 07:25] LABS: Platelet Estimate Adequate (Adequate); Schistocytes None Seen (NORMAL)
[2023-06-30 07:26] LABS: Atypical Lymphocytes Present
[2023-06-30] MEDS: MORPHINE SULFATE (*CRX) 4 MG/ML INJ IV PUSH (08:06)
[2023-06-30] MEDS: PANTOPRAZOLE 40 MG TABLET PO (10:22)
[2023-06-30] MEDS: ATORVASTATIN 10 MG TABLET PO (10:23)
[2023-06-30] MEDS: FUROSEMIDE 20 MG TABLET PO (10:23)
[2023-06-30 10:24] VITALS: PULSE 84
[2023-06-30] MEDS: METOPROLOL SUCCINATE EXT REL 50 MG TABCR PO (10:24)
[2023-06-30] MEDS: ENOXAPARIN 40 MG/0.4 ML SYRINGE SUB-Q (10:25)
--- NOTE | 2023-06-30 12:20 | PCPTNOTE ---
Pt has a neuro surgery consult pending. Will see pt once recommendations are made. Will follow.
[2023-06-30 14:00] VITALS: BP 135/80; PULSE 87; RESP 18; TEMP 35.6; O2SAT 91
--- NOTE | 2023-06-30 15:48 | WPDNEUROSGCN ---
Assessment and Plan Assessment and plan (1) Closed L2 vertebral fracture: Qualifiers: Encounter type: initial encounter Fracture morphology: wedge compression Qualified Code(s): S32.020A - Wedge compression fracture of second lumbar vertebra, initial encounter for closed fracture Code(s): S32.029A - Unspecified fracture of second lumbar vertebra, initial encounter for closed fracture Status: Acute Plan Mr. Dugan is a 77-year-old male who presented with progressively worsening low back and buttock pain after a fall about 10 days ago as well as urinary retention for which he had a leung catheter placed in the ER. He has no lower extremity pain, paresthesias, or weakness. On physical exam, he has normal sensation and very strong lower-extremity strength. I reviewed his imaging which shows an L2 burst fracture with about 33% loss of height without kyphosis or retropulsion. MRI lumbar spine shows multiple chronic degenerative changes including stenosis most significant at L4-5 from epidural lipomatosis. I do not see an acute pathology like an epidural hematoma. At this point, I suspect his urinary retention is from a combination of pain and pre-existing issues. I do not suspect cauda equina given his lack of other symptoms. I recommend treating the fracture in a TLSO brace. I contacted [facility] who will fit him for this. I will arrange for follow up with us in clinic. Plan: -No acute neurosurgical intervention indicated -Recommend TLSO brace be worn when sitting and out of bed. He does not need to wear this when in bed unless it is comfortable for him. I contacted [place] to fit him for the brace -I will arrange for outpatient neurosurgical follow up Consult date: 06/30/23 HPI: Gonzalo Dugan is a 77 year old male with history of obesity, JENNIFER, BPH with pre-existing urinary issues who presented to the hospital yesterday with progressive lower back pain and difficulty with urination since a fall about 10 days ago. The patient slipped on ice and landed on his gluteal region. He initially did not have much pain, but in the following couple days, he developed progressively-worsening pain in the lower back, tailbone, and bilateral gluteal regions. He went to his PCP and to urgent care without receiving any significant relief. He has been taking tylenol at home and tried a muscle relaxer that a family member gave him. He denies any radicular pain or paresthesias in the legs. He feels a sense of generalized weakness but denies focal weakness. Of note, he had a leung catheter placed in the ER. He has seen Dr. Dominguez and Dr. De La Rosa in the past for his retention issues. He denies any pre-existing issues with back pain prior to the fall. Review of Systems Review of Systems: All systems reviewed & are unremarkable except as noted in HPI and below PMFSH Past Medical History Medical History (Updated 06/30/23 @ 08:02 by Radha Garcia DO) Asthma Atrial fibrillation BPH (benign prostatic hyperplasia) Claustrophobia Hepatic steatosis Hyperlipidemia Hypertension Obstructive sleep apnea Intolerant to CPAP therapy Peripheral neuropathy Surgical History Surgical History (Updated 06/30/23 @ 07:59 by Radha Garcia DO) Status post open reduction with internal fixation of fracture Right humerus/shoulder Family History Family History Mother Diabetes mellitus Father Cerebrovascular accident Sibling Heart attack Social History Social History (Updated 06/30/23 @ 08:01 by Radha Garcia DO) Social History: He reports that he lives with his they been for 58 years they have 3 children who are healthy.. He used to work in a body shop but retired several years ago. He used to smoke 2 packs per day for 35 years but quit smoking approximately 20 years ago. He denies illicit substance use. He used to drink in moderation but has not done so in many yea
--- NOTE | 2023-06-30 15:55 | PM.IMPN ---
Progress Note: A&P Assessment and Plan (1) Closed L2 vertebral fracture: Qualifiers: Encounter type: initial encounter Fracture morphology: wedge compression Qualified Code(s): S32.020A - Wedge compression fracture of second lumbar vertebra, initial encounter for closed fracture Code(s): S32.029A - Unspecified fracture of second lumbar vertebra, initial encounter for closed fracture Status: Acute Assessment and Plan: CT spine showed acute-appearing superior endplate fracture and mild wedge deformity at L2. MRI spine showed acute versus subacute L2 burst fracture. Severe lumbar spondylosis. Will continue cyclobenzaprine and [place] and morphine as needed for pain. Neurosurgery has been consulted. PT ordered for when appropriate holding steroid until seen by neurosx (2) Acute urinary retention: Code(s): R33.8 - Other retention of urine Status: Acute Assessment and Plan: background history of BPH. Will continue home Flomax. Martin catheter is in place. plan for voiding trial in am, bladder scan PRN consider consult to urology if retention continues (3) Leukocytosis: Qualifiers: Leukocytosis type: unspecified Qualified Code(s): D72.829 - Elevated white blood cell count, unspecified Code(s): D72.829 - Elevated white blood cell count, unspecified Status: Acute Assessment and Plan: UA negative baseline chronic leukocytosis, likely reactive. WBC 15.7 this am continue to trend and monitor (4) Acute hyponatremia: Code(s): E87.1 - Hypo-osmolality and hyponatremia Status: Resolved (5) Obstructive sleep apnea: Code(s): G47.33 - Obstructive sleep apnea (adult) (pediatric) Status: Chronic Assessment and Plan: noncompliant with CPAP. p.r.n. oxygen at night ordered Plan Subjective Date/time seen: 06/30/23 15:55 Review of Systems Review of Systems: All systems reviewed & are unremarkable except as noted in HPI and below Exam Narrative: GEN: Overweight, male in no acute stress HEAD: Normocephalic, atraumatic. EYES: PERRLA and EOMI. ENT: Mucous membranes moist. NECK: Supple.? CHEST: Lungs clear to auscultation.? HEART: RRR.? No murmur heard.? Normal peripheral pulses. ABDOMEN: Soft, nontender, nondistended, normal active bowel sounds. EXTREMITIES: Normal range of motion.? No edema.?Normal sensation. SKIN: Warm, dry, no rash. NEURO: No focal deficits.? Alert and oriented x3. PSYCH: Normal mood and affect. ? Objective Data Vital Signs Vital Signs: Vital Signs - 24 hr 06/29/23 18:18 06/29/23 20:46 06/29/23 23:01 Temperature 97.4 F L Pulse Rate 87 92 99 Respiratory Rate 18 16 20 Blood Pressure 179/96 H 146/89 H 121/83 Pulse Oximetry 94 94 94 Oxygen Delivery 06/30/23 00:33 06/30/23 05:29 06/30/23 10:24 Temperature 97.2 F L Pulse Rate 90 84 Respiratory Rate 18 Blood Pressure 129/74 Pulse Oximetry 90 Oxygen Delivery Room Air 06/30/23 14:00 Temperature 96.0 F L Pulse Rate 87 Respiratory Rate 18 Blood Pressure 135/80 Pulse Oximetry 91 Oxygen Delivery Intake/Output Intake/Output: Intake & Output 06/27/23 06/28/23 06/29/23 06/30/23 23:59 23:59 23:59 23:59 Intake Total 600 480 Output Total 0 700 Balance 600 -220 Meds/Results Medications: Active Medications Generic Name Dose Route Start Last Admin Trade Name Freq PRN Reason Stop Dose Admin Acetaminophen 650 mg 06/29/23 21:07 Acetaminophen 325 Mg Tablet PO Q4H PRN Mild Pain (1-3) or Fever Hydrocodone Bitart/Acetaminophen 1 tab 06/29/23 21:07 06/30/23 10:23 Hydrocodone/Acetaminophen (*Crx) 5-325 Mg Tablet PO 1 tab Q4H PRN Administration Pain Rated 4-6 Atorvastatin Calcium 10 mg 06/30/23 09:00 06/30/23 10:23 Atorvastatin 10 Mg Tablet PO 10 mg DAILY BRENDA Administration Cyclobenzaprine HCl 10 mg 06/30/23 04:29 Cyclo
--- NOTE | 2023-06-30 20:42 | PC.NURSE ---
I reviewed Lily's charting and agree with her findings.
[2023-06-30 21:06] VITALS: BP 132/86; PULSE 90; RESP 16; TEMP 36.2; O2SAT 91
[2023-06-30] MEDS: TAMSULOSIN HCL 0.4 MG CAPSULE PO (21:27)
[2023-07-01] MEDS: MORPHINE SULFATE (*CRX) 4 MG/ML INJ IV PUSH (00:10)
[2023-07-01] MEDS: HYDROcodone/acetaminophen (*CRX) 5-325 MG TABLET 1 TAB PO ×3 (05:09→16:46)
[2023-07-01 05:58] VITALS: BP 108/78; PULSE 80; RESP 16; TEMP 36.4; O2SAT 91
[2023-07-01 06:31] LABS: Basophils Absolute Auto 0.1 K/mm3 (0.0-0.1); Basophils Percent Auto 0.7 % (0.2-1.2); Eosinophils Absolute Auto 0.5 K/mm3 (0-0.3); Eosinophils Percent Auto 3.7 % (0-4.4); Hematocrit 43.3 % (42.0-52.0); Immature Granulocyte Absolute 0.15 K/mm3 (0.00-0.031); Immature Granulocyte Percent A 1.2 % (0-0.5); Lymphocytes Absolute Auto 3.54 K/mm3 (0.9-3.2); Lymphocytes Percent Auto 29.3 % (18.3-44.2); Mean Corpuscular HGB Conc 32.3 g/dl (32-36); Mean Corpuscular Hemoglobin 29.9 pg (26-34); Mean Corpuscular Volume 92.3 fl (80-100); Mean Platelet Volume 10.3 fl (7.4-10.4); Monocytes Absolute Auto 1.5 K/mm3 (0.1-0.6); Monocytes Percent Auto 12.6 % (2.6-8.5); Neutrophils Absolute Auto 6.3 K/mm3 (1.3-6.7); Neutrophils Percent Auto 52.5 % (45.5-73.1); Platelet Count Result 215 k/mm3 (150-375); Red Blood Count 4.69 M/mm3 (4.6-6.20); Red Cell Distribution Width 13.2 % (11.5-14.5); White Blood Count 12.1 K/mm3 (4.5-10.0)
[2023-07-01 06:41] LABS: Albumin Level 3.9 g/dL (3.5-5.1); Anion Gap 7 mmol/L (8-16); Blood Urea Nitrogen 24 mg/dL (9-20); Calcium 8.7 mg/dL (8.4-10.2); Carbon Dioxide 29 mmol/L (22-30); Chloride 100 mmol/L (98-107); Estimated CRCL calculation 66 ml/min; Estimated Glomerular Filt Rate > 60; Glucose 101 mg/dL (65-110); Phosphorus 3.6 mg/dL (2.5-4.5); Potassium 3.6 mmol/L (3.4-5.0); Sodium 136 mmol/L (137-145)
--- NOTE | 2023-07-01 06:42 | PC.NURSE ---
Pt leung removed at 0530 this morning per orders. Leung removed intact. Voiding trial with begin. Pt tolerated removal without difficulties. Pt was educated on using call light for assistance for first void post leung removal. Continue monitoring.
[2023-07-01 08:48] VITALS: PULSE 74
[2023-07-01] MEDS: ENOXAPARIN 40 MG/0.4 ML SYRINGE SUB-Q (08:48)
[2023-07-01] MEDS: METOPROLOL SUCCINATE EXT REL 50 MG TABCR PO (08:48)
[2023-07-01] MEDS: ATORVASTATIN 10 MG TABLET PO (08:48)
[2023-07-01] MEDS: FUROSEMIDE 20 MG TABLET PO (08:50)
[2023-07-01] MEDS: PANTOPRAZOLE 40 MG TABLET PO (08:50)
[2023-07-01 08:51] VITALS: PULSE 88; O2SAT 92
--- NOTE | 2023-07-01 08:56 | PCPTNOTE ---
Attempted PT evaluation, Pt's TLSO brace not present. Will continue to follow
--- NOTE | 2023-07-01 09:38 | PCOTNOTE ---
Attempted OT evaluation, Pt's TLSO brace not present. Will continue to follow
--- NOTE | 2023-07-01 10:41 | PCPTNOTE ---
Attempted PT evaluation, pt refused stating he would like clothes on prior to participating in therapy. RN aware.
[2023-07-01 14:00] VITALS: BP 139/71; PULSE 77; RESP 14; TEMP 37.1; O2SAT 92
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
[2023-07-01] MEDS: APIXABAN 5 MG TABLET PO (18:16)
[2023-07-01] MEDS: TAMSULOSIN HCL 0.4 MG CAPSULE PO (20:37)
[2023-07-01] MEDS: CYCLOBENZAPRINE HCL 10 MG TABLET PO (20:40)
[2023-07-01 21:21] VITALS: BP 155/76; PULSE 70; RESP 16; TEMP 36.6; O2SAT 97
[2023-07-02] MEDS: LIDOCAINE HCL 2% GEL UROJET 10 ML PKG MUCOUS MEM (03:09)
[2023-07-02] MEDS: MORPHINE SULFATE (*CRX) 4 MG/ML INJ IV PUSH (03:13)
[2023-07-02] MEDS: HYDROcodone/acetaminophen (*CRX) 5-325 MG TABLET 1 TAB PO ×2 (03:17→11:02)
[2023-07-02] MEDS: APIXABAN 5 MG TABLET PO (05:52)
[2023-07-02 06:37] VITALS: BP 162/75; PULSE 76; RESP 18; TEMP 37; O2SAT 95
[2023-07-02] MEDS: PANTOPRAZOLE 40 MG TABLET PO (08:49)
[2023-07-02] MEDS: FUROSEMIDE 20 MG TABLET PO (08:49)
[2023-07-02] MEDS: ATORVASTATIN 10 MG TABLET PO (08:49)
[2023-07-02 08:50] VITALS: PULSE 80
[2023-07-02] MEDS: METOPROLOL SUCCINATE EXT REL 50 MG TABCR PO (08:50)
--- NOTE | 2023-07-02 09:07 | WPDURCON ---
Assessment and Plan Assessment and plan (1) Acute urinary retention: Code(s): R33.8 - Other retention of urine Status: Acute Assessment and Plan: Secondary to BPH, likely exacerbated by acute pain from recent fall and narcotics. Continue with leung catheter. Given multiple recent catheterizations, will plan to leave leung for at least one week to allow for bladder/urethral rest. Will plan for outpatient void trial in 1 week. Limit narcotics as much as possible. Manage constipation (2) BPH (benign prostatic hyperplasia): Code(s): N40.0 - Benign prostatic hyperplasia without lower urinary tract symptoms Status: Acute Assessment and Plan: Currently on tamsulosin. Was previously on finasteride but stopped taking for unclear reasons >2 years ago. Given recurrent issues with retention, will restart finasteride and increase tamsulosin to twice daily. He may benefit from a bladder outlet procedure in the future. Urology Consult Note HPI Date Seen: 07/02/23 Requesting Physician: Radha Garcia DO Primary Care Provider: Zacarias Angel Consult Narrative Narrative: Gonzalo Dugan is a 77 year old male with a history of BPH on tamsulosin and prior episodes of urinary retention who is being seen in consultation for evaluation of urinary retention. He presented to the emergency department on 06/29/23 with complaints of back pain. He was found to have >1 L of urine on bladder scan and a leung catheter was placed. Unclear how much initial urine output. Yesterday, 06/30/23, his leung catheter was removed. He was unable to void therefore he was straight catheterized. He was again unable to void and a leung catheter was replaced. Per nursing staff, the leung catheter became clotted off, therefore an 18 Fr 3-way catheter was ordered and placed. Nursing staff was able to irrigate one single small clot. His urine cleared and was draining without difficulty. He never required CBI. His urine is draining clear, yellow urine without blood or clots at this time and output is good. He reports no issues with his leung catheter. He is a poor historian and unsure if he had been taking tamsulosin as he reports his manages his medications. He had a prior episode of urinary retention in 09/2020 at which time he was started on tamsulosin and finasteride. At some point he stopped taking finasteride. He had another episode of urinary retention in 06/2022 which was felt to be related to UTI/pyelonephritis. He has had no other urologic issues or follow up since that time. At the time of my evaluation, he is comfortable and has no concerns. His WBC is 12.1. Hgb 14.0. Creatinine is 1.1. UA had 3+ blood but no concerns for infection. Review of Systems Review of Systems: All systems reviewed & are unremarkable except as noted in HPI and below [facility] Past Medical History Medical History (Updated 07/02/23 @ 09:16 by Loren Woodruff PA-C) Asthma Atrial fibrillation BPH (benign prostatic hyperplasia) Claustrophobia Hepatic steatosis Hyperlipidemia Hypertension Obstructive sleep apnea Intolerant to CPAP therapy Peripheral neuropathy Surgical History Surgical History (Updated 06/30/23 @ 07:59 by Radha Garcia DO) Status post open reduction with internal fixation of fracture Right humerus/shoulder Family History Family History Mother Diabetes mellitus Father Cerebrovascular accident Sibling Heart attack Social History Social History (Updated 06/30/23 @ 08:01 by Radha Garcia DO) Social History: He reports that he lives with his they been for 58 years they have 3 children who are healthy.. He used to work in a body shop but retired several years ago. He used to smoke 2 packs per day for 35 years but quit smoking approximately 20 years ago. He denies illicit substance use. He used to drink in moderation but has not done so in many
--- NOTE | 2023-07-02 10:17 | PCOTNOTE ---
Attempted to see Patient at this time. Patient declined stating, not right now, I'm waiting on my to gert here, she also will need educated on putting on/off the back brace. Therapy will check back later this date.
[2023-07-02 13:14] VITALS: O2SAT 93
[2023-07-02 14:00] VITALS: BP 156/77; PULSE 79; RESP 20; TEMP 37; O2SAT 95
--- NOTE | 2023-07-02 15:59 | PM.DS ---
DS: Admitting Diagnosis Discharge Date July 02, 2023 Admitting Diagnosis Close L2 vertebral fracture DS: Discharge Diagnosis Discharge Diagnosis (1) BPH (benign prostatic hyperplasia): Code(s): N40.0 - Benign prostatic hyperplasia without lower urinary tract symptoms Status: Acute (2) Acute hyponatremia: Code(s): E87.1 - Hypo-osmolality and hyponatremia Status: Resolved (3) Leukocytosis: Qualifiers: Leukocytosis type: unspecified Qualified Code(s): D72.829 - Elevated white blood cell count, unspecified Code(s): D72.829 - Elevated white blood cell count, unspecified Status: Acute (4) Closed L2 vertebral fracture: Qualifiers: Encounter type: initial encounter Fracture morphology: wedge compression Qualified Code(s): S32.020A - Wedge compression fracture of second lumbar vertebra, initial encounter for closed fracture Code(s): S32.029A - Unspecified fracture of second lumbar vertebra, initial encounter for closed fracture Status: Acute (5) Acute urinary retention: Code(s): R33.8 - Other retention of urine Status: Acute DS: Summary Hospital Course Hospital Course: 77-year-old white male with a past medical history obesity, JENNIFER noncompliant with CPAP, BPH with multiple prior episodes of obstruction, paroxysmal AFib on Eliquis. The patient slipped on ice about 10 days prior to admission. He then developed intractable back pain and presented to the [facility] ER. He was prescribed a Medrol Dosepak and cyclobenzaprine but those have not helped much. He has also had trouble urinating. Lumbar spine MRI without and with contrast demonstrating severe lumbar spondylosis an acute versus subacute L2 burst fracture. Neurosurgery consulted and recommended TLSO brace and follow up as outpatient. That is being arranged. The patient is refusing SNF for therapy but is amenable to home health therapy. The patient had leukocytosis but did not otherwise appear septic/toxic. This was likely due to steroid use and improved greatly during his admission. 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 The patient has been noncompliant with CPAP. He has been counseled. The patient has acute on chronic urinary retention and Leung catheter was placed by Urology. He will have a void trial in 1 week with Urology. Otherwise he should follow up with primary care physician within 1-2 weeks. He is stable for discharge to home on 07/02 with [facility]. Patient was full code during his admission. Time Spent with Patient Time attestation: Total time spent providing and/or coordinating discharge services: Exam Const: General: comfortable and no acute distress Other: Obese. A&O x3 Eyes: Pupils: Equal, round and reactive pupils present Neck: Neck: supple Resp: Effort & Inspection: normal respiratory effort Auscultation: clear to auscultation bilaterally Cardio: Rate: regular rate GI: GI Palp: No Tenderness to palpation present (GI) Neuro: Motor exam (neuro): 5/5 motor strength present throughout Extrem: General: no edema Discharge Plan Discharge Attending physician on discharge: Sarah Beth Davison Consulting providers: Kaila Brar; Katie Casas Discharging Clinician: Sarah Beth Davison Patient Disposition: Home Health Service Activity: september shower Diet: as tolerated Discharge Instructions: Per Care Coordination: [facility] will contact you prior to their first visit. [facility] will follow for PT/OT eval and treat and RN leung catheter education if needed. [facility] can be contacted at [phone]. Patient Instructions: Pain Management (DC) Stand Alone Forms: General Discharge Information Follow-up/Referrals: Stanley,Zacarias [Other] - 2 Weeks Loren Woodruff PA-C [Physician Digital Strategist Senior Manager] - 1 Week Discharge Medications: New
[2023-07-02] MEDS: TAMSULOSIN HCL 0.4 MG CAPSULE PO (17:18)
== END 2023-07-02 19:00 | disposition home health service (06) ==
LOC: ANHED 21:42 → ANH3MEDSUR 22:39
PROVIDERS: Nurse Practitioner; Admitting Provider Internal Medicine; Emergency Provider Physician Assistant; Visit Provider General Practice
DX: S32.020A Wedge compression fracture of second lumbar vertebra, initial encounter for closed fracture (principal); S09.90XA Unspecified injury of head, initial encounter; M25.559 Pain in unspecified hip; W00.0XXA Fall on same level due to ice and snow, initial encounter; N40.1 Benign prostatic hyperplasia with lower urinary tract symptoms; R33.8 Other retention of urine; E87.1 Hypo-osmolality and hyponatremia; D72.829 Elevated white blood cell count, unspecified; G47.33 Obstructive sleep apnea (adult) (pediatric); M47.816 Spondylosis without myelopathy or radiculopathy, lumbar region; Z91.199 Patient's noncompliance with other medical treatment and regimen due to unspecified reason; I48.0 Paroxysmal atrial fibrillation; G62.9 Polyneuropathy, unspecified; I10 Essential (primary) hypertension; Z96.0 Presence of urogenital implants; J45.909 Unspecified asthma, uncomplicated; K76.0 Fatty (change of) liver, not elsewhere classified; E66.9 Obesity, unspecified; Z68.38 Body mass index [BMI] 38.0-38.9, adult; Z87.891 Personal history of nicotine dependence; F10.90 Alcohol use, unspecified, uncomplicated; Z79.01 Long term (current) use of anticoagulants; Z79.52 Long term (current) use of systemic steroids; Z79.899 Other long term (current) drug therapy
CPT/HCPCS: 36415; 70450; 72125; 72128; 72132; 72158; 74177; 80048; 80053; 80069; 81001; 85025; 96372; 96374; 96375; 96376; 97116; 97161; 97165; 97530; 97535; 99285; A9270; A9577; G0378; J1650; J2270; J2405; Q9967

== ENCOUNTER 2023-10-30 15:19 | Emergency (ER) | payer OTHER, SELFPAY ==
--- NOTE | ~2023-10-30 | XR_ITS ---
EXAMINATION: 1. XR humerus RT 2. XR shoulder RT min 2V DATE: 10/30/2023 16:50 INDICATION: Right shoulder swelling. TECHNIQUE: 2 views of right humerus and 4 views of right shoulder were obtained. COMPARISON: Right shoulder radiographs 04/30/2021 FINDINGS: RIGHT SHOULDER: There is an old displaced fracture of greater tuberosity of proximal right humerus wi th nonunion. There is internal fixation of the proximal humerus with plate and screws. There is sever e right glenohumeral joint osteoarthritis with loose bodies. There is severe acromioclavicular joint osteoarthritis. RIGHT HUMERUS: There is also mild elbow joint osteoarthritis. IMPRESSION: 1. 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 2. Severe osteoarthritis of glenohumeral joint with loose bodies. 3. Severe acromioclavicular joint osteoarthritis. Reviewed, dictated and finalized at location A. IMPRESSION: 1. Old displaced fracture of greater tuberosity of proximal humerus with nonuni on. 2. Severe osteoarthritis of glenohumeral joint with loose bodies. 3. Severe acromioclavicular joint osteoarthritis.
--- NOTE | ~2023-10-30 | US_ITS ---
RIGHT UPPER EXTREMITY VENOUS ULTRASOUND Ordering provider: Adriana Serrato MD History: . swelling, ecchymosis, tenderness . Comparison: None. FINDINGS: --JUGULAR: Patent and free of thrombus. Normal compressibility, phasic flow and augmentation. --SUBCLAVIAN: Patent and free of thrombus. Normal compressibility, phasic flow and augmentation. --AXILLARY: Patent and free of thrombus. Normal compressibility, phasic flow and augmentation. --BRACHIAL: Patent and free of thrombus. Normal compressibility, phasic flow and augmentation. --CEPHALIC: Patent and free of thrombus. Normal compressibility, phasic flow and augmentation. --BASILIC: Patent and free of thrombus. Normal compressibility, phasic flow and augmentation. --RADIAL: Patent and free of thrombus. Normal compressibility, phasic flow and augmentation. --ULNAR: Patent and free of thrombus. Normal compressibility, phasic flow and augmentation. IMPRESSION: Negative right upper extremity venous US. No deep vein thrombosis. Reviewed, dictated and finalized at location A.
[2023-10-30 15:29] VITALS: BP 145/83; PULSE 85; RESP 18; TEMP 37.1; O2SAT 97
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
[2023-10-30 17:26] LABS: Basophils Absolute Auto 0.1 K/mm3 (0.0-0.1); Basophils Percent Auto 0.7 % (0.2-1.2); Eosinophils Absolute Auto 0.5 K/mm3 (0-0.3); Hematocrit 41.3 % (42.0-52.0); Hemoglobin 14.1 g/dL (14.0-18.0); Immature Granulocyte Absolute 0.17 K/mm3 (0.00-0.031); Immature Granulocyte Percent A 1.3 % (0-0.5); Lymphocytes Percent Auto 30.5 % (18.3-44.2); Mean Corpuscular HGB Conc 34.1 g/dl (32-36); Mean Corpuscular Hemoglobin 30.8 pg (26-34); Mean Corpuscular Volume 90.2 fl (80-100); Mean Platelet Volume 10.4 fl (7.4-10.4); Monocytes Absolute Auto 1.4 K/mm3 (0.1-0.6); Monocytes Percent Auto 10.8 % (2.6-8.5); Neutrophils Absolute Auto 6.9 K/mm3 (1.3-6.7); Neutrophils Percent Auto 52.7 % (45.5-73.1); Platelet Count Result 219 k/mm3 (150-375); Red Blood Count 4.58 M/mm3 (4.6-6.20); Red Cell Distribution Width 13.4 % (11.5-14.5); White Blood Count 13.1 K/mm3 (4.5-10.0)
[2023-10-30 17:36] LABS: INR 1.1; Prothrombin Time 14.9 Seconds (11.1-14.7)
[2023-10-30 17:37] LABS: Alanine Aminotransferase 34 U/L (6-50); Albumin Level 4.2 g/dL (3.5-5.1); Alkaline Phosphatase 83 U/L (38-126); Anion Gap 8 mmol/L (4-12); Aspartate Amino Transferase 24 U/L (17-59); Bilirubin,Total 0.9 mg/dL (0.2-1.3); Blood Urea Nitrogen 13 mg/dL (9-20); Carbon Dioxide 24 mmol/L (22-30); Chloride 106 mmol/L (98-107); Estimated CRCL calculation 88 ml/min; Estimated Glomerular Filt Rate > 60; Glucose 128 mg/dL (65-110); Partial Thromboplastin Time 33.5 Seconds (22.3-36.8); Potassium 4.3 mmol/L (3.4-5.0); Sodium 138 mmol/L (137-145)
== END 2023-10-30 18:38 | disposition home or self-care (01) ==
PROVIDERS: Emergency Provider Student in an Organized Health Care Education/Training Program
DX: M79.81 Nontraumatic hematoma of soft tissue (principal); M19.011 Primary osteoarthritis, right shoulder; D72.829 Elevated white blood cell count, unspecified; S42.251K Displaced fracture of greater tuberosity of right humerus, subsequent encounter for fracture with nonunion; R60.9 Edema, unspecified; I48.91 Unspecified atrial fibrillation; I10 Essential (primary) hypertension; J45.909 Unspecified asthma, uncomplicated; E78.5 Hyperlipidemia, unspecified; N40.0 Benign prostatic hyperplasia without lower urinary tract symptoms; G47.33 Obstructive sleep apnea (adult) (pediatric); G62.9 Polyneuropathy, unspecified; Z79.01 Long term (current) use of anticoagulants; Z79.899 Other long term (current) drug therapy; Z87.891 Personal history of nicotine dependence; W54.1XXD Struck by dog, subsequent encounter
CPT/HCPCS: 36415; 73030; 73060; 80053; 85025; 85610; 85730; 93971; 99284

== ENCOUNTER 2024-01-19 22:47 | Inpatient (IN) | payer OTHER, SELFPAY ==
--- NOTE | ~2024-01-19 | XR_ITS ---
EXAMINATION: XR surgery orthopedic DATE: 01/21/2024 17:16 INDICATION: Intertrochanteric fracture of the proximal right femur post internal fixation. TECHNIQUE: 7 fluoroscopic images of the right hip and proximal femur were obtained during procedure p erformed by Dr. Cowan. Radiologist was not present for the imaging or procedure. The amount of f luoroscopy time used during this procedure was 2.0 minutes. COMPARISON: 01/19/2024 FINDINGS: Interval reduction internal fixation of a comminuted intratrochanteric fracture of the proximal right femur. The prior varus angulation has been reduced the fracture is now in near-anatomic alignment. T he fracture is fixed with an antegrade intramedullary dylan with femoral neck dynamic compression screw and a pair of distal interlocking screws. Mild osteoarthritis at the right hip. Expected small amoun t of soft tissue gas at the operative bed. IMPRESSION: 1. Near-anatomic alignment post open reduction internal fixation of a comminuted intertrochanteric fr acture of the proximal right femur. See procedure note for further detail. Reviewed, dictated and finalized at location A. IMPRESSION: 1. Near-anatomic alignment post open reduction internal fixation of a comminute d intertrochanteric fracture of the proximal right femur. See procedure note fo r further detail.
--- NOTE | ~2024-01-19 | CT_ITS ---
CT head without contrast Indication: Status post fall COMPARISON: 06/29/2023 Technique: Serial scans were obtained through the brain without the administration of contrast. Dose reduction technique was used on this scan by utilizing automated exposure control and iterative recon struction technique. The dose-length product (DLP) was 681.00 mGy-cm. Findings: There is no evidence of intracranial hemorrhage, mass lesion, or acute infarct. The ventri cles and subarachnoid spaces are dilated, consistent with mild to moderate atrophy. Low attenuation regions are seen within the periventricular white matter bilaterally, likely representing changes fro m chronic microvascular ischemic disease. There is no evidence of edema, mass effect or midline shif t. The visualized paranasal sinuses and mastoid air cells are clear. Impression: No intracranial hemorrhage, mass, or acute infarct. Atrophy and chronic white matter changes, as above. Reviewed, dictated and finalized at location . Impression: No intracranial hemorrhage, mass, or acute infarct. Atrophy and chronic white matter changes, as above.
--- NOTE | ~2024-01-19 | XR_ITS ---
EXAMINATION: XR hip RT 2V w AP pelvis DATE: 01/19/2024 23:53 INDICATION: Head pain. Fall. TECHNIQUE: An anteroposterior view of the pelvis on 2 radiographs and 2 views of right hip were obtai eleanor. COMPARISON: None. FINDINGS: There is a comminuted intertrochanteric fracture of proximal right femur. The main distal f racture fragment demonstrates 7 mm medial displacement and posterior angulation. There is mild osteoa rthritis of the hips. There is severe lumbar spondylosis. IMPRESSION: 1. Intertrochanteric fracture of proximal right femur. 2. Mild osteoarthritis of the hips. Reviewed, dictated and finalized at location A.
[2024-01-19 22:50] VITALS: BP 180/145; PULSE 68; RESP 11; TEMP 36.4; O2SAT 96
[2024-01-19 23:23] LABS: Basophils Absolute Auto 0.1 K/mm3 (0.0-0.1); Basophils Percent Auto 0.8 % (0.2-1.2); Eosinophils Absolute Auto 0.2 K/mm3 (0-0.3); Eosinophils Percent Auto 2.5 % (0-4.4); Hematocrit 42.1 % (42.0-52.0); Hemoglobin 14.5 g/dL (14.0-18.0); Immature Granulocyte Absolute 0.14 K/mm3 (0.00-0.031); Immature Granulocyte Percent A 1.6 % (0-0.5); Lymphocytes Absolute Auto 3.52 K/mm3 (0.9-3.2); Lymphocytes Percent Auto 40.2 % (18.3-44.2); Mean Corpuscular HGB Conc 34.4 g/dl (32-36); Mean Corpuscular Hemoglobin 30.5 pg (26-34); Mean Corpuscular Volume 88.4 fl (80-100); Mean Platelet Volume 10.6 fl (7.4-10.4); Monocytes Absolute Auto 1.4 K/mm3 (0.1-0.6); Monocytes Percent Auto 16.3 % (2.6-8.5); Neutrophils Absolute Auto 3.4 K/mm3 (1.3-6.7); Neutrophils Percent Auto 38.6 % (45.5-73.1); Platelet Count Result 203 k/mm3 (150-375); Red Blood Count 4.76 M/mm3 (4.6-6.20); Red Cell Distribution Width 13.4 % (11.5-14.5); White Blood Count 8.8 K/mm3 (4.5-10.0)
[2024-01-19] MEDS: MORPHINE SULFATE (*CRX) 4 MG/ML INJ IV PUSH (23:32)
[2024-01-19 23:40] LABS: Alanine Aminotransferase 40 U/L (6-50); Albumin Level 4.1 g/dL (3.5-5.1); Alkaline Phosphatase 71 U/L (38-126); Anion Gap 12 mmol/L (4-12); Aspartate Amino Transferase 50 U/L (17-59); Bilirubin,Total 0.8 mg/dL (0.2-1.3); Blood Urea Nitrogen 19 mg/dL (9-20); Calcium 8.6 mg/dL (8.4-10.2); Carbon Dioxide 26 mmol/L (22-30); Chloride 97 mmol/L (98-107); Estimated CRCL calculation 70 ml/min; Estimated Glomerular Filt Rate > 60; Glucose 117 mg/dL (65-110); Potassium 3.8 mmol/L (3.4-5.0); Sodium 135 mmol/L (137-145)
--- NOTE | 2024-01-20 | ED.FALL ---
HPI - Fall General Chief Complaint: Fall <CHRIST Gaspar Last Filed: 01/20/24 01:04> Stated Complaint: FALL, HIP PAIN <CHRIST Gaspar Last Filed: 01/20/24 01:04> Time Seen by Provider: 01/19/24 22:56 <CHRIST Gaspar Last Filed: 01/20/24 01:04> History of Present Illness HPI Narrative: 78-year-old male with history of hypertension and obesity presents to the emergency department via EMS from home after mechanical fall. Patient states his dog tried to attack the patient, he stepped back, lost his balance and fell down onto his back. He denies hitting his head or losing consciousness. He is reporting pain to his right hip. He denies neck pain or back pain, other injuries acquired. He is not able to ambulate secondary to the right hip pain. He is anticoagulated with Eliquis due to AFib. <CHRIST Gaspar Last Filed: 01/20/24 01:04> Related Data Home Medications: Home Medications Medication Instructions Recorded Confirmed atorvastatin 10 mg tablet 10 mg PO DAILY 09/29/20 01/20/24 pantoprazole 40 mg tablet,delayed 40 mg PO DAILY 09/29/20 01/20/24 release apixaban 5 mg tablet (Eliquis) 5 mg PO Q12H 07/06/22 01/20/24 furosemide 20 mg tablet 20 mg PO DAILY 07/06/22 01/20/24 metoprolol succinate 50 mg 50 mg PO DAILY 07/06/22 01/20/24 tablet,extended release 24 hr albuterol sulfate 90 mcg/actuation 2 inh inhalation Q4-6H PRN 01/20/24 01/20/24 aerosol inhaler Shortness Of Breath Or Wheezing fluticasone 250 mcg-salmeterol 50 1 ea inhalation BID 01/20/24 01/20/24 mcg/dose blistr powdr for inhalation (Wixela Inhub) <CHRIST Gaspar Last Filed: 01/20/24 01:04> Allergies/Adverse Reactions: Allergies Allergy/AdvReac Type Severity Reaction Status Date / Time No Known Allergies Allergy Verified 01/20/24 01:42 <Lesly Brooks PA-C - Last Filed: 01/20/24 01:04> Review of Systems Review of Systems: All systems reviewed & are unremarkable except as noted in HPI and below <Lesly Brooks PA-C - Last Filed: 01/20/24 01:04> [facility] Past Medical History Medical History: Medical History Asthma Atrial fibrillation BPH (benign prostatic hyperplasia) Claustrophobia Hepatic steatosis Hyperlipidemia Hypertension Obstructive sleep apnea Intolerant to CPAP therapy Peripheral neuropathy Right hand dominant <Lesly Brooks PA-C - Last Filed: 01/20/24 01:04> Surgical History Surgical History: Surgical History Status post open reduction with internal fixation of fracture Right humerus/shoulder <Lesly Brooks PA-C - Last Filed: 01/20/24 01:04> Family History Family History: Family History Mother Diabetes mellitus Father Cerebrovascular accident Sibling Heart attack <Lesly Brooks PA-C - Last Filed: 01/20/24 01:04> Social History Social History: Social History Social History: He reports that he lives with his they been for 58 years they have 3 children who are healthy.. He used to work in a body shop but retired several years ago. He used to smoke 2 packs per day for 35 years but quit smoking approximately 20 years ago. He denies illicit substance use. He used to drink in moderation but has not done so in many years. Code status: Full code (he stated he would like to discuss options with his family before changing his code status.) Smoking packs per day: 1 Smoking cigarettes per day: 20.0 Years smoked: 15 Smoking pack-years: 15.00 Smoking status: Former smoker Tobacco type: cigarettes Smoking end date: 08/23/05 Alcohol intake: never Substance use: never Substance use type: does not use Do You Feel Safe in your Ho
[2024-01-20] MEDS: HYDROmorphone HCL INJ (*CRX) 1 MG/ML SYR IV PUSH ×5 (00:06→16:45)
[2024-01-20 00:32] LABS: Add Urine Microscopic? YES; Appearance Urine Clear (Clear); Bacteria Urine None Seen /hpf; Bilirubin Urine Negative (Negative); Blood Urine 2+ (Negative); Color Urine Yellow (Yellow); Glucose Urine UA Negative (Negative); Ketones Urine Trace mg/dL (Negative); Leukocyte Esterase Ur Negative LEU/UL (Negative); Nitrate Urine Negative (Negative); Non Pathogenic Casts 0-2; Protein Urine 1+ mg/dL (Negative); RBC Urine 21-50 /hpf (0-2); Specific Grav Ur 1.025 (1.001-1.035); Squamous Epithelial Cell Urine None Seen /hpf (Few); WBC Urine 0-5 /hpf (0-3); pH Urine 5.5 (5.0-9.0)
[2024-01-20 01:53] VITALS: BP 136/78; PULSE 74; RESP 18; O2SAT 94
--- NOTE | 2024-01-20 02:34 | ADMGEN ---
This patient, Gonzalo Dugan, was admitted to Medical Room 243-01. Patient/family oriented to hospital policies and general routines including ID bracelet, bed and alarms, visiting hours, pain management, procedures, bathroom and other care routines, personal items, smoking policy, room service/diet, and visiting hours. Information on how to activate the Rapid Response Team has been discussed. Patient/Family are encouraged to report perceived risks to care and to ask questions if they do not understand what they are told or what they should do.
[2024-01-20 02:46] VITALS: BMI 38.9
[2024-01-20 02:47] VITALS: BP 157/87; PULSE 67; RESP 16; TEMP 37; O2SAT 95
--- NOTE | 2024-01-20 06:46 | PM.IMHP ---
H&P: HPI History of Present Illness Date/Time: 01/20/24 06:46 Chief Complaint: mechanical fall Narrative: 78 year old male with past medical history of obesity, hypertension, hyperlipidemia, obstructive sleep apnea (noncompliant with CPAP), BPH with multiple prior episodes of obstruction, and paroxysmal atrial fibrillation on Eliquis presents to the hospital following a mechanical fall. He states that last night he was following his normal routine prior to bed and went to take his dogs collar off. He thinks he spooked his dog and the animal turned and attacked him, knocking him backwards onto his right hip. The dog did not bite him. He denies hitting his head or loss of consciousness. He states he was down for about half an hour. He was unable to stand secondary to right leg pain and his was unable to help him up. EMS was called to assist and patient was transported to the hospital. Patient denies chest pain, shortness of breath, nausea/vomiting and changes in bowel/bladder. ED workup: CBC without leukocytosis or anemia. Chemistry unremarkable. UA with traumatic findings likely secondary to straight catheter of 2+ blood and 21-50 RBC, otherwise unremarkable. Hip/pelvis XR: Intertrochanteric fracture of proximal right femur. Mild osteoarthritis of the hips. Patient was given morphine and Dilaudid for pain. Ortho consulted. Review of Systems Review of Systems: All systems reviewed & are unremarkable except as noted in HPI and below PMFSH Past Medical History Medical History Asthma Atrial fibrillation BPH (benign prostatic hyperplasia) Claustrophobia Hepatic steatosis Hyperlipidemia Hypertension Obstructive sleep apnea Intolerant to CPAP therapy Peripheral neuropathy Right hand dominant Surgical History Surgical History Status post open reduction with internal fixation of fracture Right humerus/shoulder Family History Family History Mother Diabetes mellitus Father Cerebrovascular accident Sibling Heart attack Social History Social History (Updated 01/20/24 @ 16:50 by Viviana Valenzuela PA-C) Social History: He reports that he lives with his and his dog (great ramsey) they been for 58 years they have 3 children who are healthy.. He used to work in a body shop but retired several years ago. He used to smoke 2 packs per day for 35 years but quit smoking approximately 20 years ago. He denies illicit substance use. He used to drink in moderation but has not done so in many years. Code status: Full code (he stated he would like to discuss options with his family before changing his code status.) Smoking packs per day: 1 Smoking cigarettes per day: 20.0 Years smoked: 15 Smoking pack-years: 15.00 Smoking status: Former smoker Tobacco type: cigarettes Smoking end date: 08/23/05 Alcohol intake: never Substance use: never Substance use type: does not use Do You Feel Safe in your Home?: Yes Lack of Transportation: No Lack of Food: Never True Current Housing: I Have Housing Concerned About Future Housing: No Difficulty Paying Gas/Electric Bills: No Difficulty Paying for Meds: No Currently Unemployed: No Education: Trade/Vocational Certificate Difficulty w/ Childcare or Family Care: No Spiritual care concerns: No Meds Home Medications and Allergies Home Medications Medication Instructions Recorded Confirmed Type atorvastatin 10 mg tablet 10 mg PO DAILY 09/29/20 01/20/24 History pantoprazole 40 mg tablet,delayed 40 mg PO DAILY 09/29/20 01/20/24 History release tamsulosin 0.4 mg capsule (Flomax) 0.4 mg PO HS #30 caps 09/29/20 01/20/24 Rx apixaban 5 mg tablet (Eliquis) 5 mg PO Q12H 07/06/22 01/20/24 History furosemide 20 mg tablet 20 mg PO DAILY 07/06/22 01/20/24 History
[2024-01-20 07:16] VITALS: BP 139/75; PULSE 70; RESP 18; TEMP 36.1; O2SAT 96
[2024-01-20 09:55] LABS: Basophils Absolute Auto 0.1 K/mm3 (0.0-0.1); Basophils Percent Auto 0.9 % (0.2-1.2); Eosinophils Absolute Auto 0.1 K/mm3 (0-0.3); Eosinophils Percent Auto 1.4 % (0-4.4); Hematocrit 43.8 % (42.0-52.0); Hemoglobin 14.6 g/dL (14.0-18.0); Immature Granulocyte Percent A 1.1 % (0-0.5); Lymphocytes Absolute Auto 3.32 K/mm3 (0.9-3.2); Lymphocytes Percent Auto 36.5 % (18.3-44.2); Mean Corpuscular HGB Conc 33.3 g/dl (32-36); Mean Corpuscular Hemoglobin 30.3 pg (26-34); Mean Corpuscular Volume 90.9 fl (80-100); Mean Platelet Volume 10.2 fl (7.4-10.4); Monocytes Absolute Auto 1.2 K/mm3 (0.1-0.6); Monocytes Percent Auto 13.2 % (2.6-8.5); Neutrophils Absolute Auto 4.3 K/mm3 (1.3-6.7); Neutrophils Percent Auto 46.9 % (45.5-73.1); Platelet Count Result 206 k/mm3 (150-375); Red Blood Count 4.82 M/mm3 (4.6-6.20); Red Cell Distribution Width 13.4 % (11.5-14.5); White Blood Count 9.1 K/mm3 (4.5-10.0)
[2024-01-20 10:15] LABS: Alanine Aminotransferase 39 U/L (6-50); Alkaline Phosphatase 65 U/L (38-126); Anion Gap 9 mmol/L (4-12); Aspartate Amino Transferase 43 U/L (17-59); Bilirubin,Total 0.9 mg/dL (0.2-1.3); Blood Urea Nitrogen 19 mg/dL (9-20); Calcium 8.4 mg/dL (8.4-10.2); Carbon Dioxide 29 mmol/L (22-30); Chloride 97 mmol/L (98-107); Estimated CRCL calculation 89 ml/min; Estimated Glomerular Filt Rate > 60; Glucose 108 mg/dL (65-110); Potassium 4.1 mmol/L (3.4-5.0); Sodium 135 mmol/L (137-145)
--- NOTE | 2024-01-20 13:01 | PM.CNOR ---
Assessment and Plan Assessment and plan (1) Closed intertrochanteric fracture: Qualifiers: Encounter type: initial encounter Fracture alignment: displaced Laterality: right Qualified Code(s): S72.141A - Displaced intertrochanteric fracture of right femur, initial encounter for closed fracture Code(s): S72.143A - Displaced intertrochanteric fracture of unspecified femur, initial encounter for closed fracture Status: Acute History of Present Illness HPI Consult date: 01/20/24 Chief complaint: Right intertrochanteric fracture PMFSH Past Medical History Medical History Asthma Atrial fibrillation BPH (benign prostatic hyperplasia) Claustrophobia Hepatic steatosis Hyperlipidemia Hypertension Obstructive sleep apnea Intolerant to CPAP therapy Peripheral neuropathy Right hand dominant Surgical History Surgical History Status post open reduction with internal fixation of fracture Right humerus/shoulder Family History Family History Mother Diabetes mellitus Father Cerebrovascular accident Sibling Heart attack Social History Social History Social History: He reports that he lives with his they been for 58 years they have 3 children who are healthy.. He used to work in a body shop but retired several years ago. He used to smoke 2 packs per day for 35 years but quit smoking approximately 20 years ago. He denies illicit substance use. He used to drink in moderation but has not done so in many years. Code status: Full code (he stated he would like to discuss options with his family before changing his code status.) Smoking packs per day: 1 Smoking cigarettes per day: 20.0 Years smoked: 15 Smoking pack-years: 15.00 Smoking status: Former smoker Tobacco type: cigarettes Smoking end date: 08/23/05 Alcohol intake: never Substance use: never Substance use type: does not use Do You Feel Safe in your Home?: Yes Lack of Transportation: No Lack of Food: Never True Current Housing: I Have Housing Concerned About Future Housing: No Difficulty Paying Gas/Electric Bills: No Difficulty Paying for Meds: No Currently Unemployed: No Education: Trade/Vocational Certificate Difficulty w/ Childcare or Family Care: No Spiritual care concerns: No Meds Home Medications and Allergies Home Medications Medication Instructions Recorded Confirmed Type atorvastatin 10 mg tablet 10 mg PO DAILY 09/29/20 01/20/24 History pantoprazole 40 mg tablet,delayed 40 mg PO DAILY 09/29/20 01/20/24 History release tamsulosin 0.4 mg capsule (Flomax) 0.4 mg PO HS #30 caps 09/29/20 01/20/24 Rx apixaban 5 mg tablet (Eliquis) 5 mg PO Q12H 07/06/22 01/20/24 History furosemide 20 mg tablet 20 mg PO DAILY 07/06/22 01/20/24 History metoprolol succinate 50 mg 50 mg PO DAILY 07/06/22 01/20/24 History tablet,extended release 24 hr finasteride 5 mg tablet (Proscar) 5 mg PO QAM #90 tabs 07/02/23 01/20/24 Rx acetaminophen 500 mg capsule 1,000 mg PO Q6H PRN pain #20 caps 10/30/23 01/20/24 Rx albuterol sulfate 90 mcg/actuation 2 inh inhalation Q4-6H PRN 01/20/24 01/20/24 History aerosol inhaler Shortness Of Breath Or Wheezing fluticasone 250 mcg-salmeterol 50 1 ea inhalation BID 01/20/24 01/20/24 History mcg/dose blistr powdr for inhalation (Timaxela Inhub) Allergies Allergy/AdvReac Type Severity Reaction Status Date / Time No Known Allergies Allergy Verified 01/20/24 01:42 Vital Signs Vital Signs - 24 hr 01/19/24 22:50 01/20/24 01:53 01/20/24 02:47 Temperature 97.6 F 98.6 F Pulse Rate 68 74 67 Respiratory Rate 11 L 18 16 Blood Pressure 180/145 H 136/78 157/87 H Pulse Oximetry 96 94 95 Oxygen Delivery Room Air
--- NOTE | 2024-01-20 13:03 | PM.CNOR ---
Assessment and Plan Assessment and plan (1) Closed intertrochanteric fracture: Qualifiers: Encounter type: initial encounter Fracture alignment: displaced Laterality: right Qualified Code(s): S72.141A - Displaced intertrochanteric fracture of right femur, initial encounter for closed fracture Code(s): S72.143A - Displaced intertrochanteric fracture of unspecified femur, initial encounter for closed fracture Status: Acute (2) Paroxysmal atrial fibrillation: Code(s): I48.0 - Paroxysmal atrial fibrillation Status: Acute (3) Acute urinary retention: Code(s): R33.8 - Other retention of urine Status: Acute Plan Displaced intertrochanteric fracture right hip. Will benefit from ORIF with cephalomedullary nail (Gamma nail) Proceed with Gamma nail right hip. We discussed the risks, benefits, and alternatives to surgery. History of Present Illness HPI Consult date: 01/21/24 Chief complaint: Right intertrochanteric fracture Narrative: Patient complains of acute right hip pain. Fell from standing height. No previous hip pain. Comfortable at rest. No numbness, tingling, or other associated symptoms. Review of Systems Review of Systems: Denies loss of consciousness. Taking Eliquis for AFib. All systems reviewed & are unremarkable except as noted in HPI and below PMFSH Past Medical History Medical History Asthma Atrial fibrillation BPH (benign prostatic hyperplasia) Claustrophobia Hepatic steatosis Hyperlipidemia Hypertension Obstructive sleep apnea Intolerant to CPAP therapy Peripheral neuropathy Right hand dominant Surgical History Surgical History Status post open reduction with internal fixation of fracture Right humerus/shoulder Family History Family History Mother Diabetes mellitus Father Cerebrovascular accident Sibling Heart attack Social History Social History (Updated 01/20/24 @ 16:50 by Viviana Valenzuela PA-C) Social History: He reports that he lives with his and his dog (great ramsey) they been for 58 years they have 3 children who are healthy.. 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 He used to smoke 2 packs per day for 35 years but quit smoking approximately 20 years ago. He denies illicit substance use. He used to drink in moderation but has not done so in many years. Code status: Full code (he stated he would like to discuss options with his family before changing his code status.) Smoking packs per day: 1 Smoking cigarettes per day: 20.0 Years smoked: 15 Smoking pack-years: 15.00 Smoking status: Former smoker Tobacco type: cigarettes Smoking end date: 08/23/05 Alcohol intake: never Substance use: never Substance use type: does not use Do You Feel Safe in your Home?: Yes Lack of Transportation: No Lack of Food: Never True Current Housing: I Have Housing Concerned About Future Housing: No Difficulty Paying Gas/Electric Bills: No Difficulty Paying for Meds: No Currently Unemployed: No Education: Trade/Vocational Certificate Difficulty w/ Childcare or Family Care: No Spiritual care concerns: No Meds Home Medications and Allergies Home Medications Medication Instructions Recorded Confirmed Type atorvastatin 10 mg tablet 10 mg PO DAILY 09/29/20 01/20/24 History pantoprazole 40 mg tablet,delayed 40 mg PO DAILY 09/29/20 01/20/24 History release tamsulosin 0.4 mg capsule (Flomax) 0.4 mg PO HS #30 caps 09/29/20 01/20/24 Rx apixaban 5 mg tablet (Eliquis) 5 mg PO Q12H 07/06/22 01/20/24 History furosemide 20 mg tablet 20 mg PO DAILY 07/06/22 01/20/24 History metoprolol succinate 50 mg 50 mg PO DAILY 07/06/22 01/20/24 History tablet,extended release 24 hr finasteride
--- NOTE | 2024-01-20 13:32 | PCOTNOTE ---
Pt. OT orders cancelled as pt awaits surgery for fx. Re-order therapy services when pt. able to participate post operatively.
--- NOTE | 2024-01-20 13:57 | PC.NURSE ---
On 01/20/24, students, [Flores So and Richelle Mcconnell], provided care and completed [facility] documentation on this patient. I have reviewed the student's documentation and agree with the findings.
[2024-01-20 14:00] VITALS: BP 132/80; PULSE 73; RESP 18; TEMP 36.4; O2SAT 91
[2024-01-20] MEDS: TAMSULOSIN HCL 0.4 MG CAPSULE PO (20:05)
[2024-01-20 21:10] VITALS: O2SAT 96
[2024-01-20] MEDS: FLUTICASONE/SALMETEROL 115-21 MCG INHALER 1 PUFF 2 PUFF INHALATION (21:10)
[2024-01-20 21:40] VITALS: BP 150/86; PULSE 81; RESP 16; TEMP 36.4; O2SAT 96
[2024-01-21] VITALS (13 sets, daily range): BP systolic 144–185; BP diastolic 66–95; PULSE 72–88; RESP 14–18; TEMP 36.4–37.7; O2SAT 90–98
[2024-01-21] MEDS: HYDROmorphone HCL INJ (*CRX) 1 MG/ML SYR IV PUSH ×2 (05:11→11:21)
[2024-01-21 05:30] LABS: Basophils Absolute Auto 0.1 K/mm3 (0.0-0.1); Basophils Percent Auto 0.6 % (0.2-1.2); Eosinophils Absolute Auto 0.2 K/mm3 (0-0.3); Eosinophils Percent Auto 1.8 % (0-4.4); Hematocrit 44.2 % (42.0-52.0); Hemoglobin 14.5 g/dL (14.0-18.0); Immature Granulocyte Absolute 0.08 K/mm3 (0.00-0.031); Immature Granulocyte Percent A 0.9 % (0-0.5); Lymphocytes Absolute Auto 2.55 K/mm3 (0.9-3.2); Lymphocytes Percent Auto 27.2 % (18.3-44.2); Mean Corpuscular HGB Conc 32.8 g/dl (32-36); Mean Corpuscular Hemoglobin 29.7 pg (26-34); Mean Corpuscular Volume 90.4 fl (80-100); Mean Platelet Volume 10.2 fl (7.4-10.4); Monocytes Absolute Auto 1.2 K/mm3 (0.1-0.6); Monocytes Percent Auto 12.5 % (2.6-8.5); Neutrophils Absolute Auto 5.4 K/mm3 (1.3-6.7); Platelet Count Result 202 k/mm3 (150-375); Red Blood Count 4.89 M/mm3 (4.6-6.20); Red Cell Distribution Width 13.3 % (11.5-14.5); White Blood Count 9.4 K/mm3 (4.5-10.0)
[2024-01-21 05:38] LABS: Alanine Aminotransferase 40 U/L (6-50); Alkaline Phosphatase 75 U/L (38-126); Anion Gap 9 mmol/L (4-12); Aspartate Amino Transferase 42 U/L (17-59); Bilirubin,Total 1.2 mg/dL (0.2-1.3); Blood Urea Nitrogen 15 mg/dL (9-20); Calcium 8.5 mg/dL (8.4-10.2); Carbon Dioxide 30 mmol/L (22-30); Chloride 96 mmol/L (98-107); Estimated CRCL calculation 89 ml/min; Estimated Glomerular Filt Rate > 60; Glucose 121 mg/dL (65-110); Potassium 3.8 mmol/L (3.4-5.0); Sodium 135 mmol/L (137-145)
[2024-01-21] MEDS: ATORVASTATIN 10 MG TABLET PO (08:31)
[2024-01-21] MEDS: PANTOPRAZOLE 40 MG TABLET PO (08:31)
[2024-01-21] MEDS: FINASTERIDE 5 MG TABLET PO (08:31)
[2024-01-21] MEDS: FUROSEMIDE 20 MG TABLET PO (08:31)
[2024-01-21] MEDS: METOPROLOL SUCCINATE EXT REL 50 MG TABCR PO (08:31)
--- NOTE | 2024-01-21 08:48 | PM.IMPN ---
Progress Note: A&P Assessment and Plan (1) Closed intertrochanteric fracture: Qualifiers: Encounter type: initial encounter Fracture alignment: displaced Laterality: right Qualified Code(s): S72.141A - Displaced intertrochanteric fracture of right femur, initial encounter for closed fracture Code(s): S72.143A - Displaced intertrochanteric fracture of unspecified femur, initial encounter for closed fracture Status: Acute Assessment and Plan: S/p mechanical fall onto his right hip. Denies hitting his head or LOC. - Head CT: no acute intracranial findings - Hip/pelvis XR: Intertrochanteric fracture of proximal right femur, mild osteoarthritis of hips. - Sensation remains intact and ablel to move toes - Analgesics - DVT ppx on hold for surgery, plan to resume eliquis once post op 24 hours - Ortho consulted, plan for surgery tomorrow 01/20- ortho saw him this am- surgery today at 2pm (2) Paroxysmal atrial fibrillation: Code(s): I48.0 - Paroxysmal atrial fibrillation Status: Acute Assessment and Plan: Chronic, patient remains rate controlled and in sinus rhthym at this time. - Metoprolol 50 mg daily - Eliquis on hold for surgery tomorrow, discussed with Dr. Cowan and plan to resume for DVT ppx once post op 24 hours (3) BPH (benign prostatic hyperplasia): Code(s): N40.0 - Benign prostatic hyperplasia without lower urinary tract symptoms Status: Acute Assessment and Plan: Chronic. Has had multiple episodes of urinary retention requiring half-way catheterization in the past. Continue home medications. - Finasteride 5 mg daily - Tamsulosin 0.4 mg daily - Monitor (4) Hypertension: Qualifiers: Hypertension type: primary hypertension Qualified Code(s): I10 - Essential (primary) hypertension Code(s): I10 - Essential (primary) hypertension Status: Acute Assessment and Plan: Chronic, well controlled on current medications. - metoprolol 50 mg daily - lasix 20 mg daily - monitor (5) Obstructive sleep apnea: Code(s): G47.33 - Obstructive sleep apnea (adult) (pediatric) Status: Chronic Assessment and Plan: Patient is non compliant with CPAP. He states he cannot sleep with one on. Encouraged CPAP use. Plan Diet: NPO at midnight for surgery tomorrow DVT ppx: eliquis on hold for surgery, will resume when 24 hours post op Disposition: Patient reports to hospital falling a fall resulting in a right hip fracture. Surgery consulted and plan for repair tomorrow. Eliquis on hold and to resumed once 24 hours post op. Time Spent With Patient Time with patient: Greater than 35 minutes Subjective Date/time seen: 01/21/24 08:48 Interval history: mechanical fall Narrative retried from H/P: 78 year old male with past medical history of obesity, hypertension, hyperlipidemia, obstructive sleep apnea (noncompliant with CPAP), BPH with multiple prior episodes of obstruction, and paroxysmal atrial fibrillation on Eliquis presents to the hospital following a mechanical fall. He states that last night he was following his normal routine prior to bed and went to take his dogs collar off. He thinks he spooked his dog and the animal turned and attacked him, knocking him backwards onto his right hip. The dog did not bite him. He denies hitting his head or loss of consciousness. He states he was down for about half an hour. He was unable to stand secondary to right leg pain and his was unable to help him up. EMS was called to assist and patient was transported to the hospital. Patient denies chest pain, shortness of breath, nausea/vomiting and changes in bowel/bladder. ED workup: CBC without leukocytosis or anemia. Chemistry unremarkable. UA with traumatic findings likely secondary to straight catheter of 2+ blood and 21-50 RBC, otherwise unremarkable. Hip/pelvis XR: Intertrochanteric fracture of proximal right femur. Mild osteoa
[2024-01-21] MEDS: FLUTICASONE/SALMETEROL 115-21 MCG INHALER 1 PUFF 2 PUFF INHALATION (08:58)
--- NOTE | 2024-01-21 14:21 | PC.NURSE ---
To OR per at 1420, IV in L FA. Report given to JAQUI Helm.
[2024-01-21] MEDS: LACTATED RINGERS 1,000 ML 30 ML IV CONT (14:25)
[2024-01-21] MEDS: TRANEXAMIC ACID 1,000MG/ISO100 1,000 MG/100 ML BAG 200 MG IVPB (15:00)
--- NOTE | 2024-01-21 15:14 | WPDANESEPPF ---
Anes - Initial Pre Proc Eval Procedure: Operation Date: 01/21/24 15:30 Proposed Procedures p Right Intertrochanteric Nail - Clinton Cowan MD Date/Time: 01/21/24 15:14 Surgeon: Viviana Valenzuela PA-C Pre Op Diagnosis: Right intertrochanteric fracture Patient Data Age: 78 Gender: M Height: 1.78 m Weight: 123 kg Last Vital Signs Temp 36.5 C 01/21/24 06:49 Pulse 88 01/21/24 08:31 Resp 16 01/21/24 06:49 BP 150/81 H 01/21/24 06:49 Pulse Ox 98 01/21/24 06:49 O2 Del Method Room Air 01/20/24 21:10 Allergies Allergy/AdvReac Type Severity Reaction Status Date / Time No Known Allergies Allergy Verified 01/20/24 01:42 Home Medications Medication Instructions Recorded Confirmed Type atorvastatin 10 mg tablet 10 mg PO DAILY 09/29/20 01/20/24 History pantoprazole 40 mg tablet,delayed 40 mg PO DAILY 09/29/20 01/20/24 History release tamsulosin 0.4 mg capsule (Flomax) 0.4 mg PO HS #30 caps 09/29/20 01/20/24 Rx apixaban 5 mg tablet (Eliquis) 5 mg PO Q12H 07/06/22 01/20/24 History furosemide 20 mg tablet 20 mg PO DAILY 07/06/22 01/20/24 History metoprolol succinate 50 mg 50 mg PO DAILY 07/06/22 01/20/24 History tablet,extended release 24 hr finasteride 5 mg tablet (Proscar) 5 mg PO QAM #90 tabs 07/02/23 01/20/24 Rx acetaminophen 500 mg capsule 1,000 mg PO Q6H PRN pain #20 caps 10/30/23 01/20/24 Rx albuterol sulfate 90 mcg/actuation 2 inh inhalation Q4-6H PRN 01/20/24 01/20/24 History aerosol inhaler Shortness Of Breath Or Wheezing fluticasone 250 mcg-salmeterol 50 1 ea inhalation BID 01/20/24 01/20/24 History mcg/dose blistr powdr for inhalation (Wixela Inhub) Laboratory Tests 01/21/24 01/21/24 04:50 08:14 WBC 9.4 K/mm3 (4.5-10.0) RBC 4.89 M/mm3 (4.6-6.20) Hgb 14.5 g/dL (14.0-18.0) Hct 44.2 % (42.0-52.0) MCV 90.4 fl (80-100) MCH 29.7 pg (26-34) MCHC 32.8 g/dl (32-36) RDW 13.3 % (11.5-14.5) Plt Count 202 k/mm3 (150-375) MPV 10.2 fl (7.4-10.4) Immature Gran % (Auto) 0.9 H % (0-0.5) Neut % (Auto) 57.0 % (45.5-73.1) Lymph % (Auto) 27.2 % (18.3-44.2) [place] % (Auto) 12.5 H % (2.6-8.5) Eos % (Auto) 1.8 % (0-4.4) Baso % (Auto) 0.6 % (0.2-1.2) Lymph # (Auto) 2.55 K/mm3 (0.9-3.2) [place] # (Auto) 1.2 H K/mm3 (0.1-0.6) Eos # (Auto) 0.2 K/mm3 (0-0.3) Baso # (Auto) 0.1 K/mm3 (0.0-0.1) Abs Immat Gran (auto) 0.08 H K/mm3 (0.00-0.031) Absolute Neuts (auto) 5.4 K/mm3 (1.3-6.7) Absolute Nucleated RBC 0.000 K/mm3 (0.0-0.012) Nucleated RBC % 0.0 % (0.0-0.2) Sodium 135 L mmol/L (137-145) Potassium 3.8 mmol/L (3.4-5.0) Chloride 96 L mmol/L (98-107) Carbon Dioxide 30 mmol/L (22-30) Anion Gap 9 mmol/L (4-12) BUN 15 mg/dL (9-20) Creatinine 0.80 mg/dL (0.7-1.3) Estim Creat Clear Calc 89 ml/min Estimated GFR > 60 (59 - ) Glucose 121 H mg/dL (65-110) Calcium 8.5 mg/dL (8.4-10.2) Total Bilirubin 1.2 mg/dL (0.2-1.3) AST 42 U/L (17-59) ALT 40 U/L (6-50) Alkaline Phosphatase 75 U/L (38-126) Total Protein 7.0 g/dL (6.3-8.2) Albumin 4.0 g/dL (3.5-5.1) Blood Type A Positive Antibody Screen Negative Patient hx anesthesia problems: none Family hx anesthesia problems: none Results Review: All pre-operative results and documents have been reviewed as part of the pre-operative evaluation. [facility] Past Medical History Medical History Asthma Atrial fibrillation BPH (benign prostatic hyperplasia) Claustrophobia Hepatic steatosis Hyperlipidemia Hypertension Obstructive sleep apnea Intolerant to CPAP therapy Peripheral neuropathy Right hand dominant
--- NOTE | 2024-01-21 15:22 | WPDHPUPDATE1 ---
History and Physical Update Update Date/Time: 01/21/24 15:22 History and Physical has been reviewed, including an updated exam of the patient. There are NO changes in the patient's condition. Risks, benefits, and alternatives have been discussed and questions answered. Patient agrees to proceed with procedure.
[2024-01-21] MEDS: ceFAZolin 3 GM/D5W 100 ML 100 ML IVPB (15:26)
--- NOTE | 2024-01-21 17:07 | P.OP_ITS ---
Procedure Note - Detailed Date of Procedure 01/21/24 Pre-op Diagnosis Right hip displaced intertrochanteric fracture Post-op Diagnosis Same Procedure Performed ORIF right hip intertrochanteric fracture with cephalomedullary nail. Surgeon Clinton Cowan MD Anesthesia General Findings Morbid obesity. Satisfactory bone quality. Greater trochanter comminution with reverse obliquity fracutre pattern. Description of Procedure The patient was given a general anesthetic, then carefully placed in fracture table. Sterile prep and drape performed in the usual fashion. Sterile curtain was used. Gentle traction was utilized to reduce the fracture. Fluoroscopy was used to confirm anatomic reduction and a proper placement of the implants. A longitudinal incision was created at the tip of the trochanter. The deep fascia was incised. The cannulated awl was used to open the proximal femur. The guidewire was placed across the fracture. The flexible reamers were used to open the canal. The gamma nail was placed across the fracture site. A separate incision was made for placement of the cannulated guide sleeve. The guide pin was placed in the center of the femoral head. Appropriate measurement was taken. The pin was over reamed. The screw was placed with excellent purchase. The set screw was placed proximally and backed out a quater turn. The distal locking screw was placed through the jig. The wound was irrigated. The deep fascia was closed with #1 Vicryl suture followed by 2-0 Vicryl suture and adelia. Sterile dressing was applied. The patient was transferred to the recovery room in stable condition. There were no complications. [employer] gamma nail 4. 12mm short nail 125?. 105 mm lag screw. 37.5 mm distal locking screw. Estimated Blood Loss 300 Drains No Packing No Pathology None sent Complications No immediate complications Condition Stable Disposition PACU [facility] Billing Surgery - Charge Forward: Surgery Billing
[2024-01-21] MEDS: fentaNYL CITRATE INJ (*CRX) 100 MCG/2 ML VIAL 25 MCG IV PUSH ×2 (17:31→17:52)
--- NOTE | 2024-01-21 18:27 | PC.NURSE ---
Returned from OR at 1815. Report received from Kendy.
[2024-01-21] MEDS: SODIUM CHLORIDE 0.9% IV 1,000 ML 125 ML IV CONT (18:54)
[2024-01-21] MEDS: SENNA/DOCUSATE SODIUM TABLET 2 TAB PO (18:54)
[2024-01-21] MEDS: ONDANSETRON INJ 4 MG/2 ML VIAL IV PUSH (18:55)
[2024-01-21] MEDS: ACETAMINOPHEN 325 MG TABLET 650 MG PO (18:55)
[2024-01-21] MEDS: TAMSULOSIN HCL 0.4 MG CAPSULE PO (22:05)
[2024-01-21] MEDS: ceFAZolin 2 GM/D5W 50 ML 2 GM/50 ML BAG IVPB (22:06)
[2024-01-21] MEDS: oxyCODONE/ACETAMINOPHEN (*CRX) 10-325 MG TABLET 1 TAB PO (23:06)
[2024-01-22] VITALS (11 sets, daily range): BP systolic 107–138; BP diastolic 53–94; PULSE 69–86; RESP 12–20; TEMP 36.3–37.2; O2SAT 87–96
[2024-01-22] MEDS: ACETAMINOPHEN 325 MG TABLET 650 MG PO ×4 (00:14→17:36)
[2024-01-22] MEDS: IBUPROFEN IV 800 MG/200 ML 800 MG/200 ML BAG 400 MG IVPB (00:22)
[2024-01-22] MEDS: SODIUM CHLORIDE 0.9% IV 1,000 ML 125 ML IV CONT ×2 (03:00→12:29)
[2024-01-22] MEDS: oxyCODONE/ACETAMINOPHEN (*CRX) 5-325 MG TABLET 1 TABLET PO ×2 (04:46→12:26)
[2024-01-22] MEDS: CYCLOBENZAPRINE HCL 10 MG TABLET PO ×3 (04:47→21:00)
[2024-01-22 05:45] LABS: Basophils Absolute Auto 0.1 K/mm3 (0.0-0.1); Basophils Percent Auto 0.4 % (0.2-1.2); Eosinophils Absolute Auto 0.1 K/mm3 (0-0.3); Eosinophils Percent Auto 0.4 % (0-4.4); Hematocrit 38.7 % (42.0-52.0); Hemoglobin 12.9 g/dL (14.0-18.0); Immature Granulocyte Absolute 0.15 K/mm3 (0.00-0.031); Immature Granulocyte Percent A 1.3 % (0-0.5); Lymphocytes Absolute Auto 3.33 K/mm3 (0.9-3.2); Lymphocytes Percent Auto 29.9 % (18.3-44.2); Mean Corpuscular HGB Conc 33.3 g/dl (32-36); Mean Corpuscular Hemoglobin 30.6 pg (26-34); Mean Corpuscular Volume 91.7 fl (80-100); Mean Platelet Volume 10.3 fl (7.4-10.4); Monocytes Absolute Auto 1.4 K/mm3 (0.1-0.6); Monocytes Percent Auto 12.7 % (2.6-8.5); Neutrophils Absolute Auto 6.1 K/mm3 (1.3-6.7); Neutrophils Percent Auto 55.3 % (45.5-73.1); Platelet Count Result 196 k/mm3 (150-375); Red Blood Count 4.22 M/mm3 (4.6-6.20); Red Cell Distribution Width 13.2 % (11.5-14.5); White Blood Count 11.1 K/mm3 (4.5-10.0)
[2024-01-22] MEDS: ceFAZolin 2 GM/D5W 50 ML 2 GM/50 ML BAG IVPB ×2 (05:57→14:27)
[2024-01-22 06:09] LABS: Anion Gap 9 mmol/L (4-12); Blood Urea Nitrogen 16 mg/dL (9-20); Calcium 8.1 mg/dL (8.4-10.2); Carbon Dioxide 28 mmol/L (22-30); Chloride 97 mmol/L (98-107); Estimated CRCL calculation 79 ml/min; Estimated Glomerular Filt Rate > 60; Glucose 114 mg/dL (65-110); Sodium 134 mmol/L (137-145)
--- NOTE | 2024-01-22 08:11 | PM.IMPN ---
Progress Note: A&P Assessment and Plan (1) Closed intertrochanteric fracture: Qualifiers: Encounter type: initial encounter Fracture alignment: displaced Laterality: right Qualified Code(s): S72.141A - Displaced intertrochanteric fracture of right femur, initial encounter for closed fracture Code(s): S72.143A - Displaced intertrochanteric fracture of unspecified femur, initial encounter for closed fracture Status: Acute Assessment and Plan: S/p mechanical fall onto his right hip. Denies hitting his head or LOC. - Head CT: no acute intracranial findings - Hip/pelvis XR: Intertrochanteric fracture of proximal right femur, mild osteoarthritis of hips. - Sensation remains intact and ablel to move toes - Analgesics - DVT ppx on hold for surgery, plan to resume eliquis once post op 24 hours - Ortho consulted, plan for surgery tomorrow 01/20- ortho saw him this am- surgery today at 2pm ORIF right hip intertrochanteric fracture with cephalomedullary nail on 01/20. est blood loss 300 cc, no immediate complications 01/21- continue with pt/ot, vascular checks, pain control, bowel regimen, IS. (2) Paroxysmal atrial fibrillation: Code(s): I48.0 - Paroxysmal atrial fibrillation Status: Acute Assessment and Plan: Chronic, patient remains rate controlled and in sinus rhthym at this time. - Metoprolol 50 mg daily - Eliquis on hold for surgery tomorrow, discussed with Dr. Cowan and plan to resume for DVT ppx once post op 24 hours 01/21 will resume eliquis 01/21 pm dose (3) BPH (benign prostatic hyperplasia): Code(s): N40.0 - Benign prostatic hyperplasia without lower urinary tract symptoms Status: Acute Assessment and Plan: Chronic. Has had multiple episodes of urinary retention requiring snf catheterization in the past. Continue home medications. - Finasteride 5 mg daily - Tamsulosin 0.4 mg daily - Monitor (4) Hypertension: Qualifiers: Hypertension type: primary hypertension Qualified Code(s): I10 - Essential (primary) hypertension Code(s): I10 - Essential (primary) hypertension Status: Acute Assessment and Plan: Chronic, well controlled on current medications. - metoprolol 50 mg daily - lasix 20 mg daily - monitor (5) Obstructive sleep apnea: Code(s): G47.33 - Obstructive sleep apnea (adult) (pediatric) Status: Chronic Assessment and Plan: Patient is non compliant with CPAP. He states he cannot sleep with one on. Encouraged CPAP use. Plan Diet: NPO at midnight for surgery tomorrow DVT ppx: eliquis on hold for surgery, will resume when 24 hours post op Disposition: Patient reports to hospital falling a fall resulting in a right hip fracture. Surgery consulted and plan for repair tomorrow. Eliquis on hold and to resumed once 24 hours post op. Time Spent With Patient Time with patient: Greater than 35 minutes Subjective Date/time seen: 01/22/24 08:11 Interval history: mechanical fall Narrative retried from H/P: 78 year old male with past medical history of obesity, hypertension, hyperlipidemia, obstructive sleep apnea (noncompliant with CPAP), BPH with multiple prior episodes of obstruction, and paroxysmal atrial fibrillation on Eliquis presents to the hospital following a mechanical fall. He states that last night he was following his normal routine prior to bed and went to take his dogs collar off. He thinks he spooked his dog and the animal turned and attacked him, knocking him backwards onto his right hip. The dog did not bite him. He denies hitting his head or loss of consciousness. He states he was down for about half an hour. He was unable to stand secondary to right leg pain and his was unable to help him up. EMS was called to assist and patient was transported to the hospital. Patient denies chest pain, shortness of breath, nausea/vomiting and changes in bowel/bladder. ED workup: FRANCK
[2024-01-22] MEDS: oxyCODONE/ACETAMINOPHEN (*CRX) 10-325 MG TABLET 1 TAB PO ×2 (08:20→17:35)
[2024-01-22] MEDS: ONDANSETRON INJ 4 MG/2 ML VIAL IV PUSH (08:20)
[2024-01-22] MEDS: FLUTICASONE/SALMETEROL 115-21 MCG INHALER 1 PUFF 2 PUFF INHALATION ×2 (09:05→19:52)
[2024-01-22] MEDS: ATORVASTATIN 10 MG TABLET PO (09:31)
[2024-01-22] MEDS: PANTOPRAZOLE 40 MG TABLET PO (09:31)
[2024-01-22] MEDS: FINASTERIDE 5 MG TABLET PO (09:31)
[2024-01-22] MEDS: SENNA/DOCUSATE SODIUM TABLET 2 TAB PO ×2 (09:31→17:36)
[2024-01-22] MEDS: METOPROLOL SUCCINATE EXT REL 50 MG TABCR PO (09:31)
[2024-01-22] MEDS: polyethylene glycoL 3350 17 GM POWD.PACK PO (09:31)
[2024-01-22] MEDS: FUROSEMIDE 20 MG TABLET PO (09:31)
--- NOTE | 2024-01-22 09:52 | PM.PNORT ---
Progress Note: A&P Assessment and Plan (1) Closed intertrochanteric fracture: Qualifiers: Encounter type: initial encounter Fracture alignment: displaced Laterality: right Qualified Code(s): S72.141A - Displaced intertrochanteric fracture of right femur, initial encounter for closed fracture Code(s): S72.143A - Displaced intertrochanteric fracture of unspecified femur, initial encounter for closed fracture Status: Acute Assessment and Plan: POD#1: ORIF right hip intertrochanteric fracture with cephalomedullary nail. Increased pain today. Spoke with Dr. Cowan. Per Dr. Cowan, the patient had a very comminuted hip fracture and had a lot of soft tissue damage. This explains his increased pain. I recommend he continue working with therapy. I agree a short stay at rehab would be beneficial for the patient. Will continue to follow. Ortho instructions: DOS: 01/21/24 D/C to SNF/rehab Xray in 2 weeks. Follow up in office in 6 weeks. Please call for apt. Wound Care: remove adelia at 2 weeks post op. Daily dressing changes until healed. S PT: WBAT with a walker. DVT prophylaxis: continue Eliquis Pain medication: Oxycodone Subjective Subjective Date/Time Seen: 01/22/24 09:52 Interval history: POD #1. Patient complaining of a lot of pain in the right hip. Unable to walk with therapy. Pain worse with sitting upright. Pain improves at rest and with pain medication. Review of Systems Review of Systems: Pain right hip and leg with movement. Denied pain elsewhere. All systems reviewed & are unremarkable except as noted in HPI and below ROS unobtainable: Yes unobtainable due to medical condition Exam Narrative: Overweight 78 y/o Male. Uncomfortable. Wearing compression socks bilaterally. Dressing dry and intact with no drainage. Moderate swelling. Mild edema in left foot and leg. No ecchymosis. No erythema. Possible hematoma. Range of motion limited due to pain. Calf nontender. Thigh tender. No varicosities. Distal pulses palpable. Wiggles toes. Light touch sensation intact. Objective Data Vital Signs Vital Signs: Vital Signs - 24 hr 01/21/24 17:01 01/21/24 17:30 01/21/24 17:45 Temperature 99.8 F H Pulse Rate 72 82 80 Respiratory Rate 16 14 14 Blood Pressure 144/66 H 170/95 H 176/87 H Pulse Oximetry 96 94 90 Oxygen Delivery Simple Face Mask Room Air Room Air Oxygen Flow Rate 6 Fraction of Inspired Oxygen 01/21/24 18:00 01/21/24 18:10 01/21/24 17:15 Temperature 98.8 F Pulse Rate 86 86 79 Respiratory Rate 16 16 14 Blood Pressure 177/88 H 172/85 H 163/85 H Pulse Oximetry 93 93 96 Oxygen Delivery Nasal Cannula Nasal Cannula Simple Face Mask Oxygen Flow Rate 3 3 6 Fraction of Inspired Oxygen 01/21/24 18:15 01/21/24 18:30 01/21/24 19:00 Temperature 97.5 F L 97.5 F L 97.6 F Pulse Rate 82 82 79 Respiratory Rate 15 15 18 Blood Pressure 162/78 H 163/78 H 156/78 H Pulse Oximetry 95 96 90 Oxygen Delivery Oxygen Flow Rate Fraction of Inspired Oxygen 01/21/24 20:00 01/22/24 00:00 01/22/24 04:00 Temperature 98.5 F 98.2 F 97.8 F Pulse Rate 77 73 69 Respiratory Rate 18 18 18 Blood Pressure 156/77 H 138/72 135/74 Pulse Oximetry 95 92 91 Oxygen Delivery Oxygen Flow Rate Fraction of Inspired Oxygen 01/22/24 06:15 01/22/24 07:44 01/22/24 09:09 Temperature 97.5 F L Pulse Rate 76 75 Respiratory Rate 18 18 Blood Pressure 138/94 H Pulse Oximetry 91 Oxygen Delivery Room Air Oxygen Flow Rate Fraction of Inspired Oxygen 01/22/24 09:11 01/22/24 09:31 Temperature Pulse Rate 75 75 Respiratory Rate 18 Blood Pressure Pulse Oximetry 96 Oxygen Delivery Room Air Oxygen Flow Rate Fraction of Inspired Oxygen 21 Intake/Output Intake/Output: Intake & Output 01/19/24 01/20/24 01/21/24 01/22/24 23:59 23:59 23:59 23:59 Intake Total 688 664 2635 Output Total 600 1020 800 Balance -38
--- NOTE | 2024-01-22 11:05 | WPDANESPN ---
Anes - Prog Note Post-Op Date/Time: 01/22/24 11:06 Cardiovascular status: normal Respiratory status: normal Airway patency: baseline Mental status: baseline Post-Op hydration status: normal Vital Signs: Last Vital Signs Temp 36.3 C L 01/22/24 10:00 Pulse 83 01/22/24 10:00 Resp 12 01/22/24 10:00 BP 127/68 01/22/24 10:00 Pulse Ox 87 L 01/22/24 10:00 O2 Del Method Room Air 01/22/24 09:11 O2 Flow Rate 3 01/21/24 18:10 FiO2 21 01/22/24 09:11 Pain Score (VAS): 08/02 I/O: Intake & Output 01/21/24 01/22/24 01/22/24 23:59 07:59 15:59 Intake Total 250 1250 120 Output Total 120 800 Balance 130 450 120 Laboratory Tests 01/22/24 04:59 01/22/24 04:59 01/22/24 04:59 WBC 11.1 H RBC 4.22 L Hgb 12.9 L Hct 38.7 L MCV 91.7 MCH 30.6 MCHC 33.3 RDW 13.2 Plt Count 196 MPV 10.3 Immature Gran % (Auto) 1.3 H Neut % (Auto) 55.3 Lymph % (Auto) 29.9 [place] % (Auto) 12.7 H Eos % (Auto) 0.4 Baso % (Auto) 0.4 Lymph # (Auto) 3.33 H [place] # (Auto) 1.4 H Eos # (Auto) 0.1 Baso # (Auto) 0.1 Abs Immat Gran (auto) 0.15 H Absolute Neuts (auto) 6.1 Absolute Nucleated RBC 0.000 Nucleated RBC % 0.0 Sodium 134 L Potassium 4.0 Chloride 97 L Carbon Dioxide 28 Anion Gap 9 BUN 16 Creatinine 0.90 Estim Creat Clear Calc 79 Estimated GFR > 60 Glucose 114 H Calcium 8.1 L Post-procedural complaints: none Patient Feedback: Patient satisfied with anesthetic care.
--- NOTE | 2024-01-22 16:17 | PC.NURSE ---
Orders are in the DC leung catheter post op DAY 1. Talked to both hospitalist and orthopedic's PA and both agreed to keep it in till tomorrow due to lack of mobility and history of retention.
[2024-01-22] MEDS: TAMSULOSIN HCL 0.4 MG CAPSULE PO (21:00)
[2024-01-22] MEDS: APIXABAN 2.5 MG TABLET PO (21:00)
[2024-01-23] MEDS: oxyCODONE/ACETAMINOPHEN (*CRX) 5-325 MG TABLET 1 TABLET PO (00:17)
[2024-01-23] MEDS: ACETAMINOPHEN 325 MG TABLET 650 MG PO ×3 (00:18→13:00)
[2024-01-23 06:06] VITALS: BP 131/68; PULSE 82; RESP 18; TEMP 36.9; O2SAT 90
[2024-01-23 07:10] VITALS: PULSE 78; RESP 18
[2024-01-23] MEDS: ALBUTEROL SULFATE (*SP) AEROSOL 1 PUFF 2 PUFF INHALATION (07:10)
--- NOTE | 2024-01-23 07:29 | PM.IMPN ---
Progress Note: A&P Assessment and Plan (1) Closed intertrochanteric fracture: Qualifiers: Encounter type: initial encounter Fracture alignment: displaced Laterality: right Qualified Code(s): S72.141A - Displaced intertrochanteric fracture of right femur, initial encounter for closed fracture Code(s): S72.143A - Displaced intertrochanteric fracture of unspecified femur, initial encounter for closed fracture Status: Acute Assessment and Plan: S/p mechanical fall onto his right hip. Denies hitting his head or LOC. - Head CT: no acute intracranial findings - Hip/pelvis XR: Intertrochanteric fracture of proximal right femur, mild osteoarthritis of hips. - Sensation remains intact and ablel to move toes - Analgesics - DVT ppx on hold for surgery, plan to resume eliquis once post op 24 hours - Ortho consulted, plan for surgery tomorrow 01/20- ortho saw him this am- surgery today at 2pm ORIF right hip intertrochanteric fracture with cephalomedullary nail on 01/20. est blood loss 300 cc, no immediate complications 01/21- continue with pt/ot, vascular checks, pain control, bowel regimen, IS. (2) Paroxysmal atrial fibrillation: Code(s): I48.0 - Paroxysmal atrial fibrillation Status: Acute Assessment and Plan: Chronic, patient remains rate controlled and in sinus rhthym at this time. - Metoprolol 50 mg daily - Eliquis on hold for surgery tomorrow, discussed with Dr. Cowan and plan to resume for DVT ppx once post op 24 hours 01/21 will resume eliquis 01/21 pm dose (3) BPH (benign prostatic hyperplasia): Code(s): N40.0 - Benign prostatic hyperplasia without lower urinary tract symptoms Status: Acute Assessment and Plan: Chronic. Has had multiple episodes of urinary retention requiring custodial catheterization in the past. Continue home medications. - Finasteride 5 mg daily - Tamsulosin 0.4 mg daily - Monitor (4) Hypertension: Qualifiers: Hypertension type: primary hypertension Qualified Code(s): I10 - Essential (primary) hypertension Code(s): I10 - Essential (primary) hypertension Status: Acute Assessment and Plan: Chronic, well controlled on current medications. - metoprolol 50 mg daily - lasix 20 mg daily - monitor (5) Obstructive sleep apnea: Code(s): G47.33 - Obstructive sleep apnea (adult) (pediatric) Status: Chronic Assessment and Plan: Patient is non compliant with CPAP. He states he cannot sleep with one on. Encouraged CPAP use. Plan Diet: regular DVT ppx: eliquis on hold for surgery, will resume when 24 hours post op Disposition: Patient reports to hospital falling a fall resulting in a right hip fracture. Surgery consulted and plan for repair tomorrow. Eliquis on hold and to resumed once 24 hours post op. Time Spent With Patient Time with patient: Greater than 35 minutes Subjective Date/time seen: 01/23/24 07:30 Interval history: mechanical fall Narrative retried from H/P: 78 year old male with past medical history of obesity, hypertension, hyperlipidemia, obstructive sleep apnea (noncompliant with CPAP), BPH with multiple prior episodes of obstruction, and paroxysmal atrial fibrillation on Eliquis presents to the hospital following a mechanical fall. He states that last night he was following his normal routine prior to bed and went to take his dogs collar off. He thinks he spooked his dog and the animal turned and attacked him, knocking him backwards onto his right hip. The dog did not bite him. He denies hitting his head or loss of consciousness. He states he was down for about half an hour. He was unable to stand secondary to right leg pain and his was unable to help him up. EMS was called to assist and patient was transported to the hospital. Patient denies chest pain, shortness of breath, nausea/vomiting and changes in bowel/bladder. ED workup: CBC without leukocytosis or anemi
[2024-01-23 08:19] LABS: Hematocrit 36.1 % (42.0-52.0); Hemoglobin 12.1 g/dL (14.0-18.0); Mean Corpuscular HGB Conc 33.5 g/dl (32-36); Mean Corpuscular Hemoglobin 30.3 pg (26-34); Mean Corpuscular Volume 90.3 fl (80-100); Mean Platelet Volume 9.9 fl (7.4-10.4); Platelet Count Result 198 k/mm3 (150-375); Red Cell Distribution Width 13.2 % (11.5-14.5)
[2024-01-23 08:27] LABS: Anion Gap 6 mmol/L (4-12); Blood Urea Nitrogen 14 mg/dL (9-20); Carbon Dioxide 29 mmol/L (22-30); Chloride 101 mmol/L (98-107); Estimated CRCL calculation 100 ml/min; Estimated Glomerular Filt Rate > 60; Glucose 112 mg/dL (65-110); Potassium 3.9 mmol/L (3.4-5.0); Sodium 136 mmol/L (137-145)
--- NOTE | 2024-01-23 08:30 | PM.PNORT ---
Progress Note: A&P Assessment and Plan (1) Closed intertrochanteric fracture: Qualifiers: Encounter type: initial encounter Fracture alignment: displaced Laterality: right Qualified Code(s): S72.141A - Displaced intertrochanteric fracture of right femur, initial encounter for closed fracture Code(s): S72.143A - Displaced intertrochanteric fracture of unspecified femur, initial encounter for closed fracture Status: Acute Assessment and Plan: POD#2: ORIF right hip intertrochanteric fracture with cephalomedullary nail. No changes in care plan. He is still having a lot of pain with motion and ambulation. Reassured patient. The patient had a very comminuted hip fracture and had a lot of soft tissue damage. This explains his increased pain. I recommend he continue working with therapy. I agree a short stay at rehab would be beneficial for the patient. Will continue to follow. Ortho instructions: DOS: 01/21/24 D/C to SNF/rehab Xray in 2 weeks. Follow up in office in 6 weeks. Please call for apt. Wound Care: remove adelia at 2 weeks post op. Daily dressing changes until healed. PT: WBAT with a walker. DVT prophylaxis: continue Eliquis Pain medication: Oxycodone Subjective Subjective Date/Time Seen: 01/23/24 08:30 Interval history: Patient complaining of pain. He has been able to get up more with therapy but he is very slow and it is painful. Review of Systems Review of Systems: All systems reviewed & are unremarkable except as noted in HPI and below Exam Narrative: Overweight 78 y/o Male. Uncomfortable. Wearing compression socks bilaterally. Dressing dry and intact with no drainage. Moderate swelling. Mild edema in left foot and leg. No ecchymosis. No erythema. Possible hematoma. Range of motion limited due to pain. Calf nontender. Thigh tender. No varicosities. Distal pulses palpable. Wiggles toes. Light touch sensation intact. Objective Data Vital Signs Vital Signs: Vital Signs - 24 hr 01/22/24 09:09 01/22/24 09:11 01/22/24 09:31 Temperature Pulse Rate 75 75 75 Respiratory Rate 18 18 Blood Pressure Pulse Oximetry 96 Oxygen Delivery Room Air Fraction of Inspired Oxygen 21 01/22/24 10:00 01/22/24 14:00 01/22/24 18:37 Temperature 97.4 F L 98.9 F 98.3 F Pulse Rate 83 76 86 Respiratory Rate 12 14 18 Blood Pressure 127/68 135/69 115/53 L Pulse Oximetry 87 L 90 91 Oxygen Delivery Fraction of Inspired Oxygen 01/22/24 19:50 01/22/24 19:53 01/22/24 21:00 Temperature 98.4 F Pulse Rate 84 79 Respiratory Rate 18 20 Blood Pressure 107/56 L Pulse Oximetry 92 Oxygen Delivery Room Air Fraction of Inspired Oxygen 01/23/24 06:06 01/23/24 07:10 Temperature 98.5 F Pulse Rate 82 78 Respiratory Rate 18 18 Blood Pressure 131/68 Pulse Oximetry 90 Oxygen Delivery Fraction of Inspired Oxygen Intake/Output Intake/Output: Intake & Output 01/20/24 01/21/24 01/22/24 01/23/24 23:59 23:59 23:59 23:59 Intake Total 542 558 9936 Output Total 600 1020 1400 450 Balance -38 -470 2580 -450 Meds/Results Medications: Active Medications Generic Name Dose Route Start Last Admin Trade Name Freq PRN Reason Stop Dose Admin Acetaminophen 650 mg 01/21/24 18:15 01/23/24 06:01 Acetaminophen 325 Mg Tablet PO 650 mg Q6HR BRENDA Administration Albuterol 2 puff 01/20/24 11:21 01/23/24 07:10 Albuterol Sulfate (*Sp) Aerosol 1 Puff INHALATION 2 puff Q4-6H PRN Administration Shortness Of Breath Or Wheezing Apixaban 2.5 mg 01/22/24 21:00 01/22/24 21:00 Apixaban 2.5 Mg Tablet PO 2.5 mg Q12HR BRENDA Administration Atorvastatin Calcium 10 mg 01/21/24 09:00 01/22/24 09:31 Atorvastatin 10 Mg Tablet PO 10 mg DAILY BRENDA Administration Cyclobenzaprine HCl 10 mg 01/21/24 18:15 01/22/24 21:00 Cyclobenzaprine Hcl 10 Mg Tablet PO 10 mg Q8H PRN Administration Muscle Spasm Docu
[2024-01-23 09:10] VITALS: BP 135/60; PULSE 85; RESP 18; TEMP 36.8; O2SAT 90
[2024-01-23 09:28] VITALS: PULSE 80
[2024-01-23] MEDS: SENNA/DOCUSATE SODIUM TABLET 2 TAB PO (09:28)
[2024-01-23] MEDS: METOPROLOL SUCCINATE EXT REL 50 MG TABCR PO (09:28)
[2024-01-23] MEDS: APIXABAN 2.5 MG TABLET PO (09:28)
[2024-01-23] MEDS: polyethylene glycoL 3350 17 GM POWD.PACK PO (09:29)
[2024-01-23] MEDS: FINASTERIDE 5 MG TABLET PO (09:29)
[2024-01-23] MEDS: PANTOPRAZOLE 40 MG TABLET PO (09:29)
[2024-01-23] MEDS: ATORVASTATIN 10 MG TABLET PO (09:29)
[2024-01-23] MEDS: FUROSEMIDE 20 MG TABLET PO (09:29)
[2024-01-23] MEDS: oxyCODONE/ACETAMINOPHEN (*CRX) 10-325 MG TABLET 1 TAB PO (09:30)
[2024-01-23] MEDS: CYCLOBENZAPRINE HCL 10 MG TABLET PO (09:31)
--- NOTE | 2024-01-23 10:38 | PM.DS ---
DS: Admitting Diagnosis Discharge Date 01/22 Admitting Diagnosis fall, hip fx DS: Discharge Diagnosis Discharge Diagnosis (1) Closed intertrochanteric fracture: Qualifiers: Encounter type: initial encounter Fracture alignment: displaced Laterality: right Qualified Code(s): S72.141A - Displaced intertrochanteric fracture of right femur, initial encounter for closed fracture Code(s): S72.143A - Displaced intertrochanteric fracture of unspecified femur, initial encounter for closed fracture Status: Acute Assessment and Plan: S/p mechanical fall onto his right hip. Denies hitting his head or LOC. - Head CT: no acute intracranial findings - Hip/pelvis XR: Intertrochanteric fracture of proximal right femur, mild osteoarthritis of hips. - Sensation remains intact and ablel to move toes - Analgesics - DVT ppx on hold for surgery, plan to resume eliquis once post op 24 hours - Ortho consulted, plan for surgery tomorrow 01/20- ortho saw him this am- surgery today at 2pm ORIF right hip intertrochanteric fracture with cephalomedullary nail on 01/20. est blood loss 300 cc, no immediate complications 01/21- continue with pt/ot, vascular checks, pain control, bowel regimen, IS. (2) Paroxysmal atrial fibrillation: Code(s): I48.0 - Paroxysmal atrial fibrillation Status: Acute Assessment and Plan: Chronic, patient remains rate controlled and in sinus rhthym at this time. - Metoprolol 50 mg daily - Eliquis on hold for surgery tomorrow, discussed with Dr. Cowan and plan to resume for DVT ppx once post op 24 hours 01/21 will resume eliquis 01/21 pm dose (3) BPH (benign prostatic hyperplasia): Code(s): N40.0 - Benign prostatic hyperplasia without lower urinary tract symptoms Status: Acute Assessment and Plan: Chronic. Has had multiple episodes of urinary retention requiring terminal make up operator catheterization in the past. Continue home medications. Finasteride 5 mg daily - Tamsulosin 0.4 mg daily - Monitor (4) Hypertension: Qualifiers: Hypertension type: primary hypertension Qualified Code(s): I10 - Essential (primary) hypertension Code(s): I10 - Essential (primary) hypertension Status: Acute Assessment and Plan: Chronic, well controlled on current medications. - metoprolol 50 mg daily - lasix 20 mg daily - monitor (5) Obstructive sleep apnea: Code(s): G47.33 - Obstructive sleep apnea (adult) (pediatric) Status: Chronic Assessment and Plan: home cpap Plan final dx: Displaced intertrochanteric fracture of unspecified femur, initial encounter for closed fracture ORIF right hip intertrochanteric fracture with cephalomedullary nail on 01/20. DS: Summary Hospital Course Hospital Course: mechanical fall Narrative retried from H/P: 78 year old male with past medical history of obesity, hypertension, hyperlipidemia, obstructive sleep apnea (noncompliant with CPAP), BPH with multiple prior episodes of obstruction, and paroxysmal atrial fibrillation on Eliquis presents to the hospital following a mechanical fall. He states that last night he was following his normal routine prior to bed and went to take his dogs collar off. He thinks he spooked his dog and the animal turned and attacked him, knocking him backwards onto his right hip. The dog did not bite him. He denies hitting his head or loss of consciousness. He states he was down for about half an hour. He was unable to stand secondary to right leg pain and his was unable to help him up. EMS was called to assist and patient was transported to the hospital. Patient denies chest pain, shortness of breath, nausea/vomiting and changes in bowel/bladder. ED workup: CBC without leukocytosis or anemia. Chemistry unremarkable. UA with traumatic findings likely secondary to straight catheter of 2+ blood and 21-50 RBC, otherwise unremarkable. Hip/pelvis XR: Intertrochanteric fracture of pr
[2024-01-23 13:30] VITALS: BP 140/73; PULSE 79; RESP 19; TEMP 36.8; O2SAT 90
--- NOTE | 2024-01-23 14:24 | PC.NURSE ---
Patient awake and alert. Peripheral IV was removed. Family at bedside. [facility] and staff assisted patient safely unto stretcher for transfer to SNF. No injuries noted. Will continue with transfer process.
== END 2024-01-23 14:25 | DRG 482 ==
LOC: ANHED 01-20 01:02 → ANH2MED 01-20 01:19
PROVIDERS: Orthopaedic Surgery; Student in an Organized Health Care Education/Training Program; Admitting Provider Internal Medicine; Emergency Provider Physician Assistant; Visit Provider Nurse Practitioner
PROC: 0QS604Z Reposition Right Upper Femur with Internal Fixation Device, Open Approach (ICD-10-PCS; CPT 27245; principal; 2024-01-21 15:30)
DX: S72.141A Displaced intertrochanteric fracture of right femur, initial encounter for closed fracture (principal); W19.XXXA Unspecified fall, initial encounter; E66.9 Obesity, unspecified; G47.33 Obstructive sleep apnea (adult) (pediatric); I48.0 Paroxysmal atrial fibrillation; I10 Essential (primary) hypertension; N40.1 Benign prostatic hyperplasia with lower urinary tract symptoms; R33.8 Other retention of urine; Z99.89 Dependence on other enabling machines and devices; Z79.01 Long term (current) use of anticoagulants; Z91.199 Patient's noncompliance with other medical treatment and regimen due to unspecified reason; Z87.891 Personal history of nicotine dependence
CPT/HCPCS: 36415; 70450; 73502; 80048; 80053; 81001; 85025; 85027; 86850; 86900; 86901; 94640; 96374; 96375; 97110; 97161; 97166; 97530; 99199; 99285; A9270; C1769; G0378; J0360; J0690; J1170; J1741; J2270; J2405; J2704; J3010; J7030; J7120

== ENCOUNTER 2024-03-03 12:13 | Outpatient (CLI) | payer OTHER, SELFPAY ==
--- NOTE | ~2024-03-03 | XR_ITS ---
XR hip RT 2V w AP pelvis 03/03/2024 12:49 Indication: Recent hip surgery. Procedure: 3 views right hip Comparison: 01/21/2024 Findings: Stable near-anatomic alignment of right hip post reduction of comminuted intertrochanteric fracture proximal aspect of the right femur. Pelvic rings are intact. There is lower lumbar spondylos is. Impression: 1: Stable near-anatomic alignment of the right femur post open reduction with dynamic compression scr ew, intramedullary dylan and single distal interlocking screw. Reviewed, dictated and finalized at location B. Impression: 1: Stable near-anatomic alignment of the right femur post open reduction with d ynamic compression screw, intramedullary dylan and single distal interlocking scr ew.
== END 2024-03-03 12:14 | disposition home or self-care (01) ==
LOC: ANHIMG 12:15
PROVIDERS: Visit Provider Orthopaedic Surgery
DX: S72.141D Displaced intertrochanteric fracture of right femur, subsequent encounter for closed fracture with routine healing (principal); Z98.890 Other specified postprocedural states; X58.XXXD Exposure to other specified factors, subsequent encounter
CPT/HCPCS: 73502

== ENCOUNTER 2024-10-10 13:59 | Emergency (ER) | payer OTHER, SELFPAY ==
[2024-10-10] VITALS (19 sets, daily range): BP systolic 143–166; BP diastolic 82–99; PULSE 84–96; RESP 16–37; TEMP 37.1; O2SAT 88–97
--- NOTE | ~2024-10-10 | XR_ITS ---
CHEST RADIOGRAPH CLINICAL HISTORY: hypoxia, cough . COMPARISON: None available TECHNIQUE: Single portable view of the chest. FINDINGS Calcified lymph nodes within the mediastinum suggesting prior granulomatous disease. The remainder of the cardiomediastinal silhouette is otherwise unremarkable. Increased interstitial markings are identified bilaterally, findings suggesting mild pulmonary vascul ar congestion. The lungs are otherwise clear. IMPRESSION: Mild pulmonary vascular congestion, without focal infiltrate or effusion. Reviewed, dictated and finalized at location A.
--- OUTSIDE RECORDS SUMMARY | 2024-10-10 14:02 | XMS_ITS | Referral Summary ---
Author Organization [facility] Address [address] [place] [address] Care Team Providers Care Rug Dyer Name Role Phone Zacarias Angel MD Primary Care Provider [phone] Go SHAH MD, Sebastien Paz Unavailable [phone] Encounters Date Type Department Care Team Description 08/24/2024 Results Follow-Up [facility] Primary Care at [address] [address] Zacarias Angel MD Urinalysis reflex to microscopic and culture Urine, Hemoglobin A1c, Thyroid Function [place], Additional followed-up results: 5 08/23/2024 2:[address] [facility] - [address] [address] Medicare annual wellness visit, subsequent; Ventricular tachycardia (HCC); Class 2 severe obesity due to excess calories with serious comorbidity and body mass index (BMI) of 38.0 to 38.9 in adult (HCC); Essential hypertension; Other hyperlipidemia; Paroxysmal atrial fibrillation (HCC); Impaired fasting glucose; Gastroesophageal reflux disease without esophagitis; Benign prostatic hyperplasia with urinary obstruction; Obstructive sleep apnea syndrome; S/P right hip fracture; Leg length discrepancy 08/23/2024 2:00 PM CDT Office Visit [facility] Primary Care at [address] [address] Zacarias Angel MD Medicare annual wellness visit, subsequent (Primary Dx); Leg length discrepancy; Ventricular tachycardia (HCC); Class 2 severe obesity due to excess calories with serious comorbidity and body mass index (BMI) of 38.0 to 38.9 in adult (HCC); Essential hypertension; Other hyperlipidemia; Paroxysmal atrial fibrillation ([facility]); Impaired fasting glucose; Gastroesophageal reflux disease without esophagitis; Benign prostatic hyperplasia with urinary obstruction; Obstructive sleep apnea syndrome; Recurrent major depressive disorder, in partial remission; S/P right hip fracture 07/14/2024 Orders Only [facility] Primary Care at [address] [place] [address] [place] [address] Zacarias Angel MD from Last 3 Months Allergies Active Allergy Reactions Criticality Noted Date Comments Gabapentin Rash Medium 06/26/2021 Tramadol Hallucinations Medium 05/29/2021 Medications acetaminophen 500 mg capsule Take 2 capsules (1,000 mg total) by mouth every 6 (six) hours as needed for pain 60 capsule 1 Active lisinopriL (PRINIVIL,ZEST RIL) 5 mg tablet TAKE 1 TABLET BY MOUTH EVERY DAY 90 tablet 3 2 Active tadalafiL (CIALIS) 5 mg tablet Take 1 tablet (5 mg total) by mouth daily Active fluticasone propion-salmet Arcenio (ADVAIR DISKUS) 250-50 mcg/dose diskus inhaler Inhale 1 puff 2 (two) times a day Rinse mouth with water after use. Do not swallow. 3 each 3 4 Active tamsulosin (FLOMAX) 0.4 mg extended release capsule TAKE 1 CAPSULE BY MOUTH EVERY DAY AT NIGHT 90 capsule [address] (PROTONIX) 40 mg EC tablet TAKE 1 TABLET BY MOUTH EVERY DAY 90 tablet 3 4 Active metoprolol XL (TOPROL-XL) 50 mg extended release tablet TAKE 1 TABLET BY MOUTH EVERY DAY 90 tablet 3 5 Active apixaban (Eliquis) 5 mg tablet Take 1 tablet (5 mg total) by mouth every 12 (twelve) hours 200 tablet 3 5 Active atorvastatin (LIPITOR) 10 mg tablet TAKE 1 TABLET BY MOUTH EVERY DAY 90 tablet 3 5 Active PARoxetine (PAXIL) 20 mg tablet TAKE 1 TABLET BY MOUTH EVERY DAY IN THE MORNING 100 tablet 3 5 Active furosemide (LASIX) 20 mg tablet TAKE 1 TABLET BY MOUTH EVERY DAY 100 tablet 1 5 Active albuterol HFA (PROVENTIL HFA,VENTOLIN HFA,PROAIR HFA) 90 mcg/actuation inhaler TAKE 2 PUFFS BY MOUTH EVERY 4 HOURS NEEDED FOR WHEEZE 18 each 5 Active furosemide (LASIX) 20 mg tablet TAKE 1 TABLET BY MOUTH EVERY DAY 90 tablet 3 4 025 Discontinued albuterol HFA (PROVENTIL HFA,VENTOLIN HFA,PROAIR HFA) 90 mcg/actuation inhaler Inhale 2 puffs every 4 (four) hours as needed for wheezing 1 each 4 025 Discontinued Active Problems Problem Noted Date Diagnosed Date Leg length discrepancy 08/23/2024 Assessment & Plan (08/23/2024 2:29 PM CDT): Uncontrolled pain in the right foot, ankle, knee, and hip likely related to significant leg length discrepancy following repair of hip fracture. Provided with orders to get measured for device to correct leg length discrepancy Recurrent major depressive disorder, in partial remission 08/22/2024 Assessment & Plan (08/23/2024 2:29 PM CDT): Fair control-continue current medication Frequent falls 02/24/2024 Assessment & Plan (02/24/2024 3:16 PM CDT): Uncontrolled. Discussed fall precautions including home safety. Continue home therapy to work on strength and balance, fall prevention. S/P right hip fracture 02/23/2024 Assessment & Plan (04/23/2024 12:30 PM CANE SPLICER): Improving but slowly. Encouraged home exercises. Offered to order PT in the future if interested. Assessment & Plan (02/24/2024 3:13 PM CDT): Uncontrolled pain seems to be limiting his mobility. Note trouble tolerating opioids in the past. He is taking too much Tylenol at one time but not often enough. Recommend Tylenol 1000 mg 3 times daily (every 6 hours as needed; do not exceed 3000 mg/day) until ortho appointment. He may follow up sooner if pain remains uncontrolled and consider trial of tramadol. Encouraged regular home exercise and physical therapy. Plan to obtain hospital and rehab records in case anything else requires follow-up. Closed fracture of lumbar vertebra with routine healing 07/14/2023 Assessment & Plan (08/25/2023 10:36 PM CDT): Recent diagnosis. Note that pain improved with physical therapy. Continue home exercises and follow-up if having problems. Assessment & Plan (07/14/2023 11:47 AM CANE SPLICER): Unspecified fracture of the lumbar spine. Requested hospital records today. Neurologic exam is intact. Continue with extra-strength Tylenol. May also benefit from [id number] lidocaine patch. Eventually, we will screen for osteoporosis with bone density testing but decided to hold off today due to his back discomfort. Continue with home physical therapy. Further recommendations pending record review. Follow-up with me as scheduled in July Head injury 06/29/2023 Assessment & Plan (06/29/2023 9:44 PM CANE SPLICER): New problem. Normal neurological exam. Suspect headaches are due to sinus symptoms but cannot exclude intracranial hemorrhage given age and since on Eliquis. CT head ordered. Seek emergency care with concerning symptoms. Rhinitis medicamentosa 06/29/2023 Assessment & Plan (06/29/2023 9:47 PM CANE SPLICER): New problem. Discussed diagnosis. Stop Afrin now. Restart nasal saline rinses and Flonase daily. Current use of exterminator anticoagulation 023 Assessment & Plan (01/31/2023 12:49 PM CDT): Discussed Eliquis versus warfarin for anticoagulation, including potential issues: For almost all patients, the risk of stroke is slightly higher on warfarin compared with continuing on Eliquis The risk of bleeding is likely to be slightly higher on warfarin compared to Eliquis Warfarin has multiple drug interactions with other medications that need to be monitored and has a lot of interactions with foods in the diet. Therefore, it is important to be very consistent with your diet while on the medication. Regular INR testing is required. This can be done in the office or at home in some cases. UpToDate Patient education: Warfarin (Beyond the Basics) handout provided, which includes potential food and medication interactions. I encouraged him to read this in detail. He is willing to pay for another month of Eliquis while we wait to hear from the clinical pharmacist about potential cost savings. I also provided him with several sample boxes of Eliquis today. Plan to prescribe warfarin if Eliquis remains too expensive. Erectile dysfunction 08/13/2022 Assessment & Plan (08/13/2022 12:48 PM CDT): Chronic, uncontrolled. Recommend discussing options with urology since medications have been ineffective. Mild intermittent asthma without complication Assessment & Plan (08/25/2023 10:35 PM CDT): Chronic with mild symptoms. No signs of acute exacerbation. Recommend resuming daily Advair and albuterol as needed. Assessment & Plan (08/13/2022 12:46 PM CDT): Chronic, symptoms are mostly controlled. Continue albuterol as needed. Assessment & Plan (07/16/2022 11:55 AM CANE SPLICER): Recent mild exacerbation, now improved. Refilled albuterol to use as needed Skin lesion of chest wall 03/11/2022 Assessment & Plan (06/29/2023 9:48 PM CANE SPLICER): New problem. Concern for actinic keratosis. Referral ordered with dermatology. Assessment & Plan (03/11/2022 11:37 AM CDT): New problem. Note that symptoms are improving. Possible mild case of shingles. He is out of the window for antiviral therapy since there are no new lesions. He may try [id number] topical hydrocortisone as needed in case contact dermatitis. Follow-up with any worsening especially if spreads to the eye. Seborrheic keratoses 03/11/2022 Assessment & Plan (03/11/2022 11:36 AM CDT): Chronic. Suspect benign but offered referral to dermatology for definitive diagnosis and to discuss removal since pruritis is slightly irritating. He declines but will contact the office if he changes his mind. Ventricular tachycardia 08/28/2021 Assessment & Plan (08/23/2024 1:55 PM CDT): Nonsustained on previous monitoring, asymptomatic. Continue beta-gale and follow-up with cardiology as scheduled Assessment & Plan (08/28/2021 12:07 PM CDT): Nonsustained VT on monitor. LV function normal. Asymptomatic. --Continue metoprolol XL 50 mg daily. Typical atrial flutter 08/27/2021 Assessment & Plan (06/04/2023 2:26 PM CANE SPLICER): No recurrence. --Metoprolol and apixaban as above. Assessment & Plan (06/04/2022 11:57 AM CANE SPLICER): Doing well, no recurrence. Consider CTI ablation if any recurrence of AFL. Assessment & Plan (12/04/2021 11:58 AM CDT): Occurring with AF. No recent symptomatic episodes. Continue expectantly for now. CTI ablation favored if any recurrence. Assessment & Plan (08/28/2021 12:05 PM CDT): Coeexisting with atrial fibrillation. As above, will continue to observe. If AFL returns, CTI ablation would be recommended, possibly along with AF ablation. Swelling of both lower extremities 07/30/2021 Assessment & Plan (02/13/2022 12:43 PM CDT): Clinically stable. Recommend that he continue current dose of medication and focus on losing weight Assessment & Plan (11/27/2021 12:10 PM CDT): Improved with change to furosemide. Continue and work on weight loss Assessment & Plan (11/02/2021 10:45 AM CDT): I suspect this is multifactorial. No other signs or symptoms of heart failure. Doubt DVT on Eliquis, previous doppler neg Repeat lab testing today Stop HCTZ Restart furosemide 20 mg daily Assessment & Plan (07/30/2021 10:41 PM CANE SPLICER): New problem. Exact etiology is unclear. ECG and lab testing ordered to evaluate possible anemia, kidney or thyroid problem, heart failure. Cannot exclude DVT, although taking Eliquis regularly. Ultrasound ordered. Recommend reducing salt in diet, compression socks, elevate legs at rest. Further recommendations based on results. Paroxysmal atrial fibrillation 06/26/2021 Assessment & Plan (08/23/2024 2:29 PM CDT): Clinically stable. Hematuria has resolved. Continue Eliquis. Check CBC today. Assessment & Plan (04/23/2024 12:26 PM CANE SPLICER): Clinically stable with RRR on exam. Continue metoprolol and Eliquis- samples provided. Follow up with cardiology as scheduled. Assessment & Plan (02/24/2024 9:54 AM CDT): Clinically stable with RRR on exam. Continue metoprolol and Eliquis- samples provided. Assessment & Plan (08/25/2023 10:34 PM CDT): Clinically stable with RRR on exam. Continue metoprolol and Eliquis. Follow-up with cardiology as planned. Assessment & Plan (06/04/2023 2:25 PM CANE SPLICER): Stable. No symptomatic episodes recently. Favor continued expectant management. --Continue metoprolol XL 50 mg daily --Continue apixaban 5 mg BID Call with any symptoms. Assessment & Plan (01/31/2023 12:00 PM CDT): Clinically stable with RRR on exam. See plan for anticoagulation. Assessment & Plan (08/13/2022 12:45 PM CDT): Clinically stable. Continue Eliquis. Assessment & Plan (07/16/2022 11:55 AM CANE SPLICER): Clinically stable. Hematuria has resolved. Continue Eliquis. Check CBC today. Assessment & Plan (06/04/2022 11:56 AM CANE SPLICER): Doing well, no recent symptomatic arrhythmia. Continue expectant strategy for now. [id number] = 3 (age, hypertension). --Continue apixaban 5 mg BID --Continue metoprolol XL 50 mg daily Assessment & Plan (12/04/2021 11:58 AM CDT): No recent symptomatic recurrence. Ambulatory monitoring previously demonstrated the absence of sustained atrial fibrillation. In the absence of recurrent atrial fibrillation, would proceed with expectant/rate control strategy. If atrial fibrillation becomes more prominent in the future, catheter ablation would be favored as the next step. --Continue apixaban 5 mg BID --Continue metoprolol XL 50 mg daily Assessment & Plan (11/02/2021 10:45 AM CDT): Appears stable with no evidence of rapid rate Continue current meds, anticoagulation Assessment & Plan (08/28/2021 12:06 PM CDT): Isolated episode of rapidly conducted atrial fibrillation during hospitalization with acute orthopedic injuries. Occur in the context of a structurally normal heart. Also coexisting with typical atrial flutter. Short episodes of nonsustained supraventricular tachycardia on ambulatory monitoring, however no documented recurrence since the index event. I have recommended continued expectant management and clinical monitoring for recurrent episodes of atrial arrhythmias. If the patient develops more symptomatic atrial arrhythmias, I would recommend consideration of rhythm control therapy with antiarrhythmic drugs or catheter ablation. Given his typical appearing atrial flutter, catheter ablation may be preferred. [id number] = 2. Recommend indefinite anticoagulation. --Continue metoprolol XL 50 mg daily --Continue apixaban 5 mg PO BID --I encouraged continued efforts at weight loss --CPAP Assessment & Plan (08/09/2021 4:55 PM CDT): Await the results of his monitor. Continue current medication for now Assessment & Plan (07/31/2021 10:02 AM CANE SPLICER): ECG today with sinus rhythm and APCs. Both probably from untreated sleep apnea. Continue with event monitor as planned. Continue current metoprolol and Eliquis. Assessment & Plan (06/26/2021 9:53 AM CANE SPLICER): Recent diagnosis, strongly suspect this is related to underlying untreated sleep apnea. At this time, we decided to continue beta-gale and Eliquis. He will get monitor placed as ordered. We discussed referral to Cardiology and decided to hold off at this time. Traumatic closed displaced f racture of right shoulder with anterior dislocation 04/30/2021 Overview (04/30/2021): Added automatically from request for surgery [id number] Benign prostatic hyperplasia with urinary obstru ction 10/03/2020 Overview (10/03/2020): 10/13-seen in emergency room, Martin catheter placed. Treated with Flomax, Septra, referred to Urology Assessment & Plan (08/23/2024 2:29 PM CDT): Chronic, history of urinary retention. Continue current medication Assessment & Plan (08/25/2023 10:33 PM CDT): Acute urinary retention in the in the setting of chronic BPH. Continue treatment and follow-up outlined by urology. Assessment & Plan (07/14/2023 11:48 AM CANE SPLICER): Acute urinary retention in the in the setting of chronic BPH. He will keep upcoming appointment with Urology for voiding trial/Martin removal Assessment & Plan (08/13/2022 12:45 PM CDT): No current symptoms of obstruction. Continue Flomax and follow-up with urology as planned. Assessment & Plan (07/16/2022 11:56 AM CANE SPLICER): Bladder outlet obstruction presumably due to recent urinary infection. Martin catheter in place-continue routine Martin care, follow-up with Urology as scheduled Assessment & Plan (06/26/2021 9:53 AM CANE SPLICER): Now improved. Suspected secondary to BPH. At at this time, his symptoms are stable on Flomax and we decided to continue Class 2 severe obesity due t o excess calories with serious comorbidity in adult 08/14/2020 Assessment & Plan (08/23/2024 2:29 PM CDT): Discussed the need to make changes in the diet. Encouraged to be physically active-see discussion of his leg length discrepancy today Assessment & Plan (05/03/2024 1:41 PM CANE SPLICER): Body mass index is 38.02 kg/m . Chronic, uncontrolled. BMI Follow-up includes: nutrition counseling, exercise counseling, and education provided. Assessment & Plan (08/25/2023 10:32 PM CDT): Body mass index is 38.6 kg/m . BMI Follow-up includes: nutrition counseling, exercise counseling, and education provided. Assessment & Plan (08/13/2022 10:50 AM CDT): Body mass index is 36.85 kg/m . BMI Follow-up includes: nutrition counseling, exercise counseling and education provided. Assessment & Plan (07/16/2022 11:56 AM CANE SPLICER): Weight is down a few lb, likely from recent illness. Recommend further weight loss by changing the diet Assessment & Plan (03/11/2022 11:34 AM CDT): Body mass index is 38.88 kg/m . BMI Follow-up includes: nutrition counseling, exercise counseling and education provided. Assessment & Plan (02/13/2022 12:44 PM CDT): Uncontrolled. We discussed detailed information about diet and exercise to help achieve weight loss. Assessment & Plan (11/27/2021 12:11 PM CDT): Continue to focus on diet to reduce weight Assessment & Plan (11/02/2021 10:45 AM CDT): Strongly encouraged weight loss Assessment & Plan (06/26/2021 9:53 AM CANE SPLICER): Strongly advised that he lose weight. Discussed diet and starting a walking program. Impaired fasting glucose 04/27/2020 Assessment & Plan (08/23/2024 2:29 PM CDT): Re-evaluate today-cannot exclude progression to type 2 diabetes given obesity and inactivity Assessment & Plan (05/03/2024 1:40 PM CANE SPLICER): Reevaluate today with A1c ordered. Advised healthy, low carb diet and physical activity as tolerated. Assessment & Plan (08/25/2023 10:32 PM CDT): Reevaluate today with A1c ordered. Assessment & Plan (01/31/2023 12:00 PM CDT): Chronic, controlled with A1c 6.1 today. Encouraged healthy, low carb diet and exercise as tolerated. Assessment & Plan (08/13/2022 10:49 AM CDT): Re-evaluate today with A1c ordered. Assessment & Plan (02/13/2022 12:44 PM CDT): Last A1c 6.3-stable. Continue to focus on weight reduction Assessment & Plan (11/27/2021 12:11 PM CDT): A1c is 6.3 today-stable. Discussed diet. 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 He will stop Flonase as this has been ineffective. Trial of Atrovent nasal spray Gastroesophageal reflux disease without esophagi tis 07/29/2017 Assessment & Plan (08/23/2024 2:29 PM CDT): Chronic-stable on current regimen Assessment & Plan (08/25/2023 10:31 PM CDT): Chronic, controlled on PPI. Assessment & Plan (08/13/2022 10:49 AM CDT): Chronic, controlled on PPI. Recommend trial of alternate day dosing. Resume daily use if symptoms are uncontrolled. Assessment & Plan (07/31/2018 9:12 AM CANE SPLICER): Fair control. Reviewed risks of proton pump inhibitors. Laboratory testing ordered. Advised weight loss Other hyperlipidemia 07/29/2017 Overview (08/14/2020): On statin Assessment & Plan (08/23/2024 2:29 PM CDT): Stable on statin Assessment & Plan (08/25/2023 10:31 PM CDT): Lipid panel ordered. Continue statin. Assessment & Plan (01/31/2023 12:04 PM CDT): Stable on statin. Assessment & Plan (08/13/2022 10:49 AM CDT): Lipid panel ordered. Continue statin. Assessment & Plan (07/31/2018 9:12 AM CANE SPLICER): Chronic and stable. Continue present regimen Obstructive sleep apnea syndrome 06/29/2015 Overview (08/14/2020): 08/12-declined referral for oral appliance 02/12-recommended repeating sleep evaluation Assessment & Plan (08/23/2024 2:29 PM CDT): Has declined to set up sleep evaluation Assessment & Plan (08/25/2023 10:39 PM CDT): Chronic, likely uncontrolled since unable to tolerate CPAP. Recommend completing a sleep study. Referral already ordered and encouraged him to set this up. Assessment & Plan (01/31/2023 12:02 PM CDT): Chronic, suspect uncontrolled since unable to tolerate CPAP. Recommend completing a sleep study and referral ordered with sleep medicine. He plans to go to the office near his home. Assessment & Plan (08/13/2022 10:48 AM CDT): Recommend trying CPAP again since anxiety is controlled. Otherwise repeat sleep study. Assessment & Plan (03/11/2022 11:35 AM CDT): Recommend sleep evaluation. Assessment & Plan (11/27/2021 12:12 PM CDT): Strongly encouraged to set up sleep eval Assessment & Plan (11/02/2021 10:46 AM CDT): Suspect this is severe. Plan to try sleep eval again. He will set up close to home Assessment & Plan (08/09/2021 4:55 PM CDT): Plan to continue to treat underlying anxiety disorder, then recommend pursuing an oral appliance Assessment & Plan (06/26/2021 9:54 AM CANE SPLICER): Uncontrolled. I suspect this has contributed to his atrial fibrillation and also contributes to his anxiety in the evening. Note difficulty in tolerating sleep studies in the past. We decided to pursue a strategy of controlling his panic disorder 1st, then seeking consultation regarding on oral appliance and possibly a repeat sleep study. I doubt that he will be able to tolerate CPAP. Advised weight loss. Assessment & Plan (07/31/2018 9:12 AM CANE SPLICER): Chronic and stable on current regimen Primary osteoarthritis of both wrists 03/15/2015 Overview (08/14/2020): 08/12-started naproxen 02/12-provided with orders for hand therapy Assessment & Plan (07/31/2018 9:12 AM CANE SPLICER): Symptoms worsening. Re-evaluate with x-ray today. May need referral to Orthopedics. Trial of diclofenac gel Panic disorder 03/15/2015 Assessment & Plan (05/03/2024 1:39 PM CANE SPLICER): Chronic and stable. Continue paroxetine. Assessment & Plan (08/25/2023 10:30 PM CDT): Chronic and stable except with triggers which occur rarely. Continue paroxetine. Assessment & Plan (08/13/2022 10:50 AM CDT): Chronic, controlled on current regimen. Assessment & Plan (03/11/2022 11:35 AM CDT): Chronic, controlled with addition of marijuana gummy. Advised that I cannot provide instructions for dosing or safety. I would not recommend taking this with lorazepam. Continue paroxetine. Assessment & Plan (02/13/2022 12:44 PM CDT): Fair control-continue present medication Assessment & Plan (08/09/2021 4:55 PM CDT): Improved with changed to paroxetine. Continue current dose of medication. Assessment & Plan (06/26/2021 9:55 AM CANE SPLICER): Uncontrolled. Stop fluoxetine. Start paroxetine 20 mg daily. Start lorazepam 0.5 mg twice daily scheduled. Essential hypertension 03/15/2015 Assessment & Plan (08/23/2024 2:29 PM CDT): Blood pressure is stable-continue current medication Assessment & Plan (05/03/2024 1:40 PM CANE SPLICER): Chronic, controlled. Continue current lisinopril, metoprolol, furosemide and recommend periodic home monitoring. Assessment & Plan (08/25/2023 10:30 PM CDT): Chronic, controlled. Continue current medication regimen and recommend periodic home monitoring. Assessment & Plan (01/31/2023 12:03 PM CDT): Chronic, controlled. Continue current medication regimen and recommend periodic home monitoring. Assessment & Plan (08/13/2022 10:48 AM CDT): Chronic, controlled. Continue current regimen. Assessment & Plan (07/16/2022 11:56 AM CANE SPLICER): Blood pressure is stable-continue current medication Assessment & Plan (02/13/2022 12:44 PM CDT): Blood pressure is controlled-continue current medication Assessment & Plan (11/27/2021 12:12 PM CDT): BP under fair control-continue current medication Assessment & Plan (11/02/2021 10:47 AM CDT): Well controlled-continue current meds Assessment & Plan (06/26/2021 9:54 AM CANE SPLICER): Controlled-continue current medication Assessment & Plan (07/31/2018 9:11 AM CANE SPLICER): Fair control. Continue present regimen and work on exercise Resolved Problems Problem Noted Date Diagnosed Date Resolved Date Rib pain on left side 04/22/20242023 Assessment & Plan (05/03/2024 1:43 PM CANE SPLICER): Recent problem, now resolved. Suspect rib injury after fall. Assessment & Plan (04/22/2024 9:28 PM CANE SPLICER): Recent problem, pain is uncontrolled. No rib fracture on x-ray. There is a possible compression fracture of a lower spine vertebrae but this was also noted in June therefore unlikely a result of his most recent fall. Granulomas also noted. I will call him to discuss results. Supportive care instructions provided. Consider advanced imaging if pain remains uncontrolled or worsening. Acute bilateral low back malachi n without sciatica 06/29/2023 08/23/2024 Assessment & Plan (06/29/2023 9:41 PM CANE SPLICER): New problem after fall. Lumbar spine, right hip and pelvis xray today without fracture. Degenerative changes noted. Suspect lumbar strain, cannot completely exclude lumbar or pelvic fracture and consider CT if pain fails to improve. Medrol Dosepak and Flexeril prescribed. Hope to avoid opioids but reconsider if needed. Urinary frequency 06/29/2023 08/20/2023 Assessment & Plan (06/29/2023 9:46 PM CANE SPLICER): New problem today. Significance is unclear. Concern for potential hyperglycemia. POC glucose and urine dipstick are normal. Follow-up if worsening or fails to improve. Pyelonephritis 07/16/2022 01/31/2023 Assessment & Plan (07/16/2022 11:55 AM CANE SPLICER): Clinically improved. Sent request for hospital records. Follow-up CBC, CMP today. Finish course of antibiotics. Follow-up with Urology as scheduled. Drug reaction 06/26/2021 08/09/2021 Assessment & Plan (06/26/2021 9:52 AM CANE SPLICER): Stop gabapentin-listed as allergy. He should experience resolution of his rash within 1 week. Hypokalemia 04/12/2020 08/14/2020 Pneumonia due to COVID-19 virus 04/11/2020 08/14/2020 Overview (08/14/2020): 04/14-hospitalized with COVID Rapid improvement in oxygenation overnight Treated with dexamethasone initially, did not meet criteria for full course CT chest c/w viral pneumonia. No PE Transient global amnesia 11/19/2018 Overview (07/28/2019): 12/11-hospitalized with an episode of memory loss/confusion MRI of the brain was normal except for 1.4 cm maxillary cystic lesion near the midline of uncertain significance MRA of the carotid arteries normal Skin lesion of scalp 07/31/2018 019 Overview (07/31/2018): Suspect benign seborrheic keratosis Assessment & Plan (07/31/2018 9:13 AM CANE SPLICER): New problem. Suspect this is a benign seborrheic keratosis. Plan to observe for now BMI 30.0-30.9,adult 07/06/2018 12/10/19 19 Assessment & Plan (07/31/2018 9:11 AM CANE SPLICER): Discussed need for weight loss Recommend a diet high in fruits, vegetables, legumes and low in processed foods. Recommend regular physical activity as patient's condition allows. Assessment & Plan (07/06/2018 2:42 PM CANE SPLICER): Reviewed diet, decrease caloric intake, decrease portion size, avoid snacking, and exercise most days of the week with regular walking as tolerated. Medicare annual wellness visit, subsequent 01/19/2017 08/22/2024 Assessment & Plan (08/23/2024 1:55 PM CDT): Health maintenance reviewed: Recommend getting Shingrix vaccine at the pharmacy Recommend getting RSV vaccine at the pharmacy Lab testing to monitor chronic conditions Assessment & Plan (08/24/2023 3:21 PM CDT): Reviewed health maintenance: Recommend Shingrix and Tdap vaccines. Declines COVID vaccine. Lab testing ordered to monitor chronic conditions. Assessment & Plan (08/13/2022 10:49 AM CDT): Reviewed health maintenance: Recommend Shingrix and Tdap vaccines Lab testing ordered to monitor chronic conditions. Assessment & Plan (02/13/2022 12:43 PM CDT): Health maintenance updates: Recommend influenza vaccine and bivalent COVID vaccine in late February. Also recommend getting Tdap and Shingrix vaccines Recommend a diet high in fruits and vegetables and low in processed foods. Practice good portion control and try to avoid eating late at night. Recommend regular physical activity Insomnia 09/01/2015 07/29/2017 Immunizations Immunization Administration Dates Next Due Influenza, Quadrivalent, Hig h Dose, Preservative Free, Intrr 03/11/2022,02/14/2021,04/12/2020 Influenza, Trivalent, High D ose, Split, Preservative Free, Intramuscular 04/23/2024,02/01/2019,01/29/2018,04/01,07/25/2016,03/15/2015 Moderna SARS-CoV-2 Monovalen t Vaccination (12+ YRS) 02/20/2021 Pneumococcal Conjugate PCV 13 03/15/2015 Pneumococcal Polysaccharide PPV23 07/25/2016 Tdap 04/30/2021 Social History Tobacco Use Types Packs/Day Years Used Date Smoking Tobacco: Former Cigarettes 1 17 0 01/20/1980 - 01/19/1997 Smokeless Tobacco: Never Tobacco Cessation:Counseling Given: Not Answered Comments:Smoking History Packs/day: 1 Packs Alcohol Use Standard Drinks/Week Comments Yes 4 (1 standard drink = 0.6 oz pur e alcohol) [facility] [email or web address] Answer Date Recorded In the past 12 months has [employer], gas, oil, or water [employer] threatened to shut off services in your home? No 02/12/2024 Social Connection and Isolat ion Panel [NHANES] Answer Date Recorded In a typical week, how many times do you talk on the phone with family, friends, or neighbors? More than three times a week 02/12/2024 How often do you get togethe r with friends or relatives? Three times a week 02/12/2024 How often do you attend chur [employer] or scientology services? Never 02/12/2024 Do you belong to any clubs o r organizations such as christian groups, unions, fraternal or athletic groups, or school groups? No 02/12/2024 How often do you attend meet ings of the clubs or organizations you belong to? Never 02/12/2024 Are you , , di vorced, , never , or living with a partner? 02/12/2024 AUDIT-C Answer Date Recorded Q1: How often do you have a drink containing alc ohol? Monthly or less 08/22/2023 Q2: How many drinks containi ng alcohol do you have on a typical day when you are drinking? 1 or 2 08/22/2023 Q3: How often do you have si x or more drinks on one occasion? Never 08/22/2023 Overall Financial Resource Strain (CARDIA) Answe r Date Recorded How hard is it for you to pa y for the very basics like food, housing, medical care, and heating? Not very hard 02/12/2024 PHQ-2 Answer Date Recorded PHQ-2 Total Score (If total score is 3 or more points, staff should administer the PHQ-9) 2 08/23/2024 Exercise Vital Sign Answer Date Recorde d On average, how many days pe r week do you engage in moderate to strenuous exercise (like a brisk walk)? 0 days Minutes of Exercise per Session Not on file 08/22/2023 Hunger Vital Sign Answer Date Recorded Within the past 12 months, y ou worried that your food would run out before you got the money to buy more. Never true 02/12/20 24 Within the past 12 months, t he food you bought just didn't last and you didn't have money to get more. Never true 02/12/2024 PRAPARE - Transportation Answer Date Re corded In the past 12 months, has l ack of transportation kept you from medical appointments or from getting medications? No 01/24 In the past 12 months, has l ack of transportation kept you from meetings, work, or from getting things needed for daily living? No 02/12/2024 Housing Stability Vital Sign Answer Jeffrey e Recorded In the last 12 months, was t here a time when you were not able to pay the mortgage or rent on time? No 07/12/2022 In the last 12 months, how many places have you lived? 1 07/12/2022 In the last 12 months, was t here a time when you did not have a steady place to sleep or slept in a retirement (including now)? No 07/12/2022 Housing Stability Vital Sign Answer Jeffrey e Recorded In the last 12 months, was t here a time when you were not able to pay the mortgage or rent on time? No 02/12/2024 Number of Times Moved in the Last Year Not on fi le 02/12/2024 At any time in the past 12 m [facility], were you homeless or living in a retirement (including now)? No 02/12/2024 Sex and Gender Information Value Date Recorded Sex Assigned at Not on file Legal Sex Male 4:40 PM CANE SPLICER Gender Identity Not on file Sexual Orientation Not on file Last Filed Vital Signs Vital Sign Reading Time Taken Comments Blood Pressure 132/68 08/23/2024 1:36 PM CDT Pulse 79 08/23/2024 1:36 PM CDT Temperature 36.6 C (97.8 F) 08/23/2024 1:36 PM CDT Respiratory Rate 18 06/04/2022 11:30 AM CANE SPLICER Oxygen Saturation 95% 08/23/2024 1:36 PM CDT Inhaled Oxygen Concentration - - Weight 121.6 kg (268 lb) 08/23/2024 1:36 PM CDT Height 177.8 cm (5' 10 ) 08/23/2024 1:36 PM CDT [id number]|2024-10-10 14:02:00|2024-10-10 14:02:00|XMS_ITS|BKG DAEMON|External Medical Summaries|[id number]|" Clinical Summary Created on: October 10, 2024 Cesar Dugan : 1945 Sex: Male Author Organization [facility] Address [address], [place] [address] Care Team Providers Care Rug Dyer Name Role Phone Zacarias Angel MD Primary Care Provider Go SHAH MD, Sebastien Paz Unavailable [phone] Allergies Active Allergy Reactions Criticality Noted Date Comments Gabapentin Rash Medium 06/26/2021 Tramadol Hallucinations Medium 05/29/2021 Medications acetaminophen 500 mg capsule Take 2 capsules (1,000 mg total) by mouth every 6 (six) hours as needed for pain 60 capsule 1 Active lisinopriL (PRINIVIL,ZEST RIL) 5 mg tablet TAKE 1 TABLET BY MOUTH EVERY DAY 90 tablet 3 2 Active tadalafiL (CIALIS) 5 mg tablet Take 1 tablet (5 mg total) by mouth daily Active fluticasone propion-salmet Arcenio (ADVAIR DISKUS) 250-50 mcg/dose diskus inhaler Inhale 1 puff 2 (two) times a day Rinse mouth with water after use. Do not swallow. 3 each 3 4 Active tamsulosin (FLOMAX) 0.4 mg extended release capsule TAKE 1 CAPSULE BY MOUTH EVERY DAY AT NIGHT 90 capsule [address] (PROTONIX) 40 mg EC tablet TAKE 1 TABLET BY MOUTH EVERY DAY 90 tablet 3 4 Active metoprolol XL (TOPROL-XL) 50 mg extended release tablet TAKE 1 TABLET BY MOUTH EVERY DAY 90 tablet 3 5 Active apixaban (Eliquis) 5 mg tablet Take 1 tablet (5 mg total) by mouth every 12 (twelve) hours 200 tablet 3 5 Active atorvastatin (LIPITOR) 10 mg tablet TAKE 1 TABLET BY MOUTH EVERY DAY 90 tablet 3 5 Active PARoxetine (PAXIL) 20 mg tablet TAKE 1 TABLET BY MOUTH EVERY DAY IN THE MORNING 100 tablet 3 5 Active furosemide (LASIX) 20 mg tablet TAKE 1 TABLET BY MOUTH EVERY DAY 100 tablet 1 5 Active albuterol HFA (PROVENTIL HFA,VENTOLIN HFA,PROAIR HFA) 90 mcg/actuation inhaler TAKE 2 PUFFS BY MOUTH EVERY 4 HOURS NEEDED FOR WHEEZE 18 each 5 Active furosemide (LASIX) 20 mg tablet TAKE 1 TABLET BY MOUTH EVERY DAY 90 tablet 3 4 025 Discontinued albuterol HFA (PROVENTIL HFA,VENTOLIN HFA,PROAIR HFA) 90 mcg/actuation inhaler Inhale 2 puffs every 4 (four) hours as needed for wheezing 1 each 025 Discontinued Active Problems Problem Noted Date Diagnosed Date Leg length discrepancy 08/23/2024 Assessment & Plan (08/23/2024 2:29 PM CDT): Uncontrolled pain in the right foot, ankle, knee, and hip likely related to significant leg length discrepancy following repair of hip fracture. Provided with orders to get measured for device to correct leg length discrepancy Recurrent major depressive disorder, in partial remission 08/22/2024 Assessment & Plan (08/23/2024 2:29 PM CDT): Fair control-continue current medication Frequent falls 02/24/2024 Assessment & Plan (02/24/2024 3:16 PM CDT): Uncontrolled. Discussed fall precautions including home safety. Continue home therapy to work on strength and balance, fall prevention. S/P right hip fracture 02/23/2024 Assessment & Plan (04/23/2024 12:30 PM CANE SPLICER): Improving but slowly. Encouraged home exercises. Offered to order PT in the future if interested. Assessment & Plan (02/24/2024 3:13 PM CDT): Uncontrolled pain seems to be limiting his mobility. Note trouble tolerating opioids in the past. He is taking too much Tylenol at one time but not often enough. Recommend Tylenol 1000 mg 3 times daily (every 6 hours as needed; do not exceed 3000 mg/day) until ortho appointment. He may follow up sooner if pain remains uncontrolled and consider trial of tramadol. Encouraged regular home exercise and physical therapy. Plan to obtain hospital and rehab records in case anything else requires follow-up. Closed fracture of lumbar vertebra with routine healing 07/14/2023 Assessment & Plan (08/25/2023 10:36 PM CDT): Recent diagnosis. Note that pain improved with physical therapy. Continue home exercises and follow-up if having problems. Assessment & Plan (07/14/2023 11:47 AM CANE SPLICER): Unspecified fracture of the lumbar spine. Requested hospital records today. Neurologic exam is intact. Continue with extra-strength Tylenol. May also benefit from thxf-tyv-[id number] lidocaine patch. Eventually, we will screen for osteoporosis with bone density testing but decided to hold off today due to his back discomfort. Continue with home physical therapy. Further recommendations pending record review. Follow-up with me as scheduled in July Head injury 06/29/2023 Assessment & Plan (06/29/2023 9:44 PM CANE SPLICER): New problem. Normal neurological exam. Suspect headaches are due to sinus symptoms but cannot exclude intracranial hemorrhage given age and since on Eliquis. CT head ordered. Seek emergency care with concerning symptoms. Rhinitis medicamentosa 06/29/2023 Assessment & Plan (06/29/2023 9:47 PM CANE SPLICER): New problem. Discussed diagnosis. Stop Afrin now. Restart nasal saline rinses and Flonase daily. Current use of [facility] anticoagulation 023 Assessment & Plan (01/31/2023 12:49 PM CDT): Discussed Eliquis versus warfarin for anticoagulation, including potential issues: For almost all patients, the risk of stroke is slightly higher on warfarin compared with continuing on Eliquis The risk of bleeding is likely to be slightly higher on warfarin compared to Eliquis Warfarin has multiple drug interactions with other medications that need to be monitored and has a lot of interactions with foods in the diet. Therefore, it is important to be very consistent with your diet while on the medication. Regular INR testing is required. This can be done in the office or at home in some cases. UpToDate Patient education: Warfarin (Beyond the Basics) handout provided, which includes potential food and medication interactions. I encouraged him to read this in detail. He is willing to pay for another month of Eliquis while we wait to hear from the clinical pharmacist about potential cost savings. I also provided him with several sample boxes of Eliquis today. Plan to prescribe warfarin if Eliquis remains too expensive. Erectile dysfunction 08/13/2022 Assessment & Plan (08/13/2022 12:48 PM CDT): Chronic, uncontrolled. Recommend discussing options with urology since medications have been ineffective. Mild intermittent asthma without complication Assessment & Plan (08/25/2023 10:35 PM CDT): Chronic with mild symptoms. No signs of acute exacerbation. Recommend resuming daily Advair and albuterol as needed. Assessment & Plan (08/13/2022 12:46 PM CDT): Chronic, symptoms are mostly controlled. Continue albuterol as needed. Assessment & Plan (07/16/2022 11:55 AM CANE SPLICER): Recent mild exacerbation, now improved. Refilled albuterol to use as needed Skin lesion of chest wall 03/11/2022 Assessment & Plan (06/29/2023 9:48 PM CANE SPLICER): New problem. Concern for actinic keratosis. Referral ordered with dermatology. Assessment & Plan (03/11/2022 11:37 AM CDT): New problem. Note that symptoms are improving. Possible mild case of shingles. He is out of the window for antiviral therapy since there are no new lesions. He may try [id number] topical hydrocortisone as needed in case contact dermatitis. Follow-up with any worsening especially if spreads to the eye. Seborrheic keratoses 03/11/2022 Assessment & Plan (03/11/2022 11:36 AM CDT): Chronic. Suspect benign but offered referral to dermatology for definitive diagnosis and to discuss removal since pruritis is slightly irritating. He declines but will contact the office if he changes his mind. Ventricular tachycardia 08/28/2021 Assessment & Plan (08/23/2024 1:55 PM CDT): Nonsustained on previous monitoring, asymptomatic. Continue beta-gale and follow-up with cardiology as scheduled Assessment & Plan (08/28/2021 12:07 PM CDT): Nonsustained VT on monitor. LV function normal. Asymptomatic. --Continue metoprolol XL 50 mg daily. Typical atrial flutter 08/27/2021 Assessment & Plan (06/04/2023 2:26 PM CANE SPLICER): No recurrence. --Metoprolol and apixaban as above. Assessment & Plan (06/04/2022 11:57 AM CANE SPLICER): Doing well, no recurrence. Consider CTI ablation if any recurrence of AFL. Assessment & Plan (12/04/2021 11:58 AM CDT): Occurring with AF. No recent symptomatic episodes. Continue expectantly for now. CTI ablation favored if any recurrence. Assessment & Plan (08/28/2021 12:05 PM CDT): Coeexisting with atrial fibrillation. As above, will continue to observe. If AFL returns, CTI ablation would be recommended, possibly along with AF ablation. Swelling of both lower extremities 07/30/2021 Assessment & Plan (02/13/2022 12:43 PM CDT): Clinically stable. Recommend that he continue current dose of medication and focus on losing weight Assessment & Plan (11/27/2021 12:10 PM CDT): Improved with change to furosemide. Continue and work on weight loss Assessment & Plan (11/02/2021 10:45 AM CDT): I suspect this is multifactorial. No other signs or symptoms of heart failure. Doubt DVT on Eliquis, previous doppler neg Repeat lab testing today Stop HCTZ Restart furosemide 20 mg daily Assessment & Plan (07/30/2021 10:41 PM CANE SPLICER): New problem. Exact etiology is unclear. ECG and lab testing ordered to evaluate possible anemia, kidney or thyroid problem, heart failure. Cannot exclude DVT, although taking Eliquis regularly. Ultrasound ordered. Recommend reducing salt in diet, compression socks, elevate legs at rest. Further recommendations based on results. Paroxysmal atrial fibrillation 06/26/2021 Assessment & Plan (08/23/2024 2:29 PM CDT): Clinically stable. Hematuria has resolved. Continue Eliquis. Check CBC today. Assessment & Plan (04/23/2024 12:26 PM CANE SPLICER): Clinically stable with RRR on exam. Continue metoprolol and Eliquis- samples provided. Follow up with cardiology as scheduled. Assessment & Plan (02/24/2024 9:54 AM CDT): Clinically stable with RRR on exam. Continue metoprolol and Eliquis- samples provided. Assessment & Plan (08/25/2023 10:34 PM CDT): Clinically stable with RRR on exam. Continue metoprolol and Eliquis. Follow-up with cardiology as planned. Assessment & Plan (06/04/2023 2:25 PM CANE SPLICER): Stable. No symptomatic episodes recently. Favor continued expectant management. --Continue metoprolol XL 50 mg daily --Continue apixaban 5 mg BID Call with any symptoms. Assessment & Plan (01/31/2023 12:00 PM CDT): Clinically stable with RRR on exam. See plan for anticoagulation. Assessment & Plan (08/13/2022 12:45 PM CDT): Clinically stable. Continue Eliquis. Assessment & Plan (07/16/2022 11:55 AM CANE SPLICER): Clinically stable. Hematuria has resolved. Continue Eliquis. Check CBC today. Assessment & Plan (06/04/2022 11:56 AM CANE SPLICER): Doing well, no recent symptomatic arrhythmia. Continue expectant strategy for now. [id number] = 3 (age, hypertension). --Continue apixaban 5 mg BID --Continue metoprolol XL 50 mg daily Assessment & Plan (12/04/2021 11:58 AM CDT): No recent symptomatic recurrence. Ambulatory monitoring previously demonstrated the absence of sustained atrial fibrillation. In the absence of recurrent atrial fibrillation, would proceed with expectant/rate control strategy. If atrial fibrillation becomes more prominent in the future, catheter ablation would be favored as the next step. --Continue apixaban 5 mg BID --Continue metoprolol XL 50 mg daily Assessment & Plan (11/02/2021 10:45 AM CDT): Appears stable with no evidence of rapid rate Continue current meds, anticoagulation Assessment & Plan (08/28/2021 12:06 PM CDT): Isolated episode of rapidly conducted atrial fibrillation during hospitalization with acute orthopedic injuries. Occur in the context of a structurally normal heart. Also coexisting with typical atrial flutter. Short episodes of nonsustained supraventricular tachycardia on ambulatory monitoring, however no documented recurrence since the index event. I have recommended continued expectant management and clinical monitoring for recurrent episodes of atrial arrhythmias. If the patient develops more symptomatic atrial arrhythmias, I would recommend consideration of rhythm control therapy with antiarrhythmic drugs or catheter ablation. Given his typical appearing atrial flutter, catheter ablation may be preferred. [id number] = 2. Recommend indefinite anticoagulation. --Continue metoprolol XL 50 mg daily --Continue apixaban 5 mg PO BID --I encouraged continued efforts at weight loss --CPAP Assessment & Plan (08/09/2021 4:55 PM CDT): Await the results of his monitor. Continue current medication for now Assessment & Plan (07/31/2021 10:02 AM CANE SPLICER): ECG today with sinus rhythm and APCs. Both probably from untreated sleep apnea. Continue with event monitor as planned. Continue current metoprolol and Eliquis. Assessment & Plan (06/26/2021 9:53 AM CANE SPLICER): Recent diagnosis, strongly suspect this is related to underlying untreated sleep apnea. At this time, we decided to continue beta-gale and Eliquis. He will get monitor placed as ordered. We discussed referral to Cardiology and decided to hold off at this time. Traumatic closed displaced f racture of right shoulder with anterior dislocation 04/30/2021 Overview (04/30/2021): Added automatically from request for surgery [id number] Benign prostatic hyperplasia with urinary obstru ction 10/03/2020 Overview (10/03/2020): 10/13-seen in emergency room, Martin catheter placed. Treated with Flomax, Septra, referred to Urology Assessment & Plan (08/23/2024 2:29 PM CDT): Chronic, history of urinary retention. Continue current medication Assessment & Plan (08/25/2023 10:33 PM CDT): Acute urinary retention in the in the setting of chronic BPH. Continue treatment and follow-up outlined by urology. Assessment & Plan (07/14/2023 11:48 AM CANE SPLICER): Acute urinary retention in the in the setting of chronic BPH. He will keep upcoming appointment with Urology for voiding trial/Martin removal Assessment & Plan (08/13/2022 12:45 PM CDT): No current symptoms of obstruction. Continue Flomax and follow-up with urology as planned. Assessment & Plan (07/16/2022 11:56 AM CANE SPLICER): Bladder outlet obstruction presumably due to recent urinary infection. Martin catheter in place-continue routine Martin care, follow-up with Urology as scheduled Assessment & Plan (06/26/2021 9:53 AM CANE SPLICER): Now improved. Suspected secondary to BPH. At at this time, his symptoms are stable on Flomax and we decided to continue Class 2 severe obesity due t o excess calories with serious comorbidity in adult 08/14/2020 Assessment & Plan (08/23/2024 2:29 PM CDT): Discussed the need to make changes in the diet. Encouraged to be physically active-see discussion of his leg length discrepancy today Assessment & Plan (05/03/2024 1:41 PM CANE SPLICER): Body mass index is 38.02 kg/m . Chronic, uncontrolled. BMI Follow-up includes: nutrition counseling, exercise counseling, and education provided. Assessment & Plan (08/25/2023 10:32 PM CDT): Body mass index is 38.6 kg/m . BMI Follow-up includes: nutrition counseling, exercise counseling, and education provided. Assessment & Plan (08/13/2022 10:50 AM CDT): Body mass index is 36.85 kg/m . BMI Follow-up includes: nutrition counseling, exercise counseling and education provided. Assessment & Plan (07/16/2022 11:56 AM CANE SPLICER): Weight is down a few lb, likely from recent illness. Recommend further weight loss by changing the diet Assessment & Plan (03/11/2022 11:34 AM CDT): Body mass index is 38.88 kg/m . BMI Follow-up includes: nutrition counseling, exercise counseling and education provided. Assessment & Plan (02/13/2022 12:44 PM CDT): Uncontrolled. We discussed detailed information about diet and exercise to help achieve weight loss. Assessment & Plan (11/27/2021 12:11 PM CDT): Continue to focus on diet to reduce weight Assessment & Plan (11/02/2021 10:45 AM CDT): Strongly encouraged weight loss Assessment & Plan (06/26/2021 9:53 AM CANE SPLICER): Strongly advised that he lose weight. Discussed diet and starting a walking program. Impaired fasting glucose 04/27/2020 Assessment & Plan (08/23/2024 2:29 PM CDT): Re-evaluate today-cannot exclude progression to type 2 diabetes given obesity and inactivity Assessment & Plan (05/03/2024 1:40 PM CANE SPLICER): Reevaluate today with A1c ordered. Advised healthy, low carb diet and physical activity as tolerated. Assessment & Plan (08/25/2023 10:32 PM CDT): Reevaluate today with A1c ordered. Assessment & Plan (01/31/2023 12:00 PM CDT): Chronic, controlled with A1c 6.1 today. Encouraged healthy, low carb diet and exercise as tolerated. Assessment & Plan (08/13/2022 10:49 AM CDT): Re-evaluate today with A1c ordered. Assessment & Plan (02/13/2022 12:44 PM CDT): Last A1c 6.3-stable. Continue to focus on weight reduction Assessment & Plan (11/27/2021 12:11 PM CDT): A1c is 6.3 today-stable. Discussed diet. 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 He will stop Flonase as this has been ineffective. Trial of Atrovent nasal spray Gastroesophageal reflux disease without esophagi tis 07/29/2017 Assessment & Plan (08/23/2024 2:29 PM CDT): Chronic-stable on current regimen Assessment & Plan (08/25/2023 10:31 PM CDT): Chronic, controlled on PPI. Assessment & Plan (08/13/2022 10:49 AM CDT): Chronic, controlled on PPI. Recommend trial of alternate day dosing. Resume daily use if symptoms are uncontrolled. Assessment & Plan (07/31/2018 9:12 AM CANE SPLICER): Fair control. Reviewed risks of proton pump inhibitors. Laboratory testing ordered. Advised weight loss Other hyperlipidemia 07/29/2017 Overview (08/14/2020): On statin Assessment & Plan (08/23/2024 2:29 PM CDT): Stable on statin Assessment & Plan (08/25/2023 10:31 PM CDT): Lipid panel ordered. Continue statin. Assessment & Plan (01/31/2023 12:04 PM CDT): Stable on statin. Assessment & Plan (08/13/2022 10:49 AM CDT): Lipid panel ordered. Continue statin. Assessment & Plan (07/31/2018 9:12 AM CANE SPLICER): Chronic and stable. Continue present regimen Obstructive sleep apnea syndrome 06/29/2015 Overview (08/14/2020): 08/12-declined referral for oral appliance 02/12-recommended repeating sleep evaluation Assessment & Plan (08/23/2024 2:29 PM CDT): Has declined to set up sleep evaluation Assessment & Plan (08/25/2023 10:39 PM CDT): Chronic, likely uncontrolled since unable to tolerate CPAP. Recommend completing a sleep study. Referral already ordered and encouraged him to set this up. Assessment & Plan (01/31/2023 12:02 PM CDT): Chronic, suspect uncontrolled since unable to tolerate CPAP. Recommend completing a sleep study and referral ordered with sleep medicine. He plans to go to the office near his home. Assessment & Plan (08/13/2022 10:48 AM CDT): Recommend trying CPAP again since anxiety is controlled. Otherwise repeat sleep study. Assessment & Plan (03/11/2022 11:35 AM CDT): Recommend sleep evaluation. Assessment & Plan (11/27/2021 12:12 PM CDT): Strongly encouraged to set up sleep eval Assessment & Plan (11/02/2021 10:46 AM CDT): Suspect this is severe. Plan to try sleep eval again. He will set up close to home Assessment & Plan (08/09/2021 4:55 PM CDT): Plan to continue to treat underlying anxiety disorder, then recommend pursuing an oral appliance Assessment & Plan (06/26/2021 9:54 AM CANE SPLICER): Uncontrolled. I suspect this has contributed to his atrial fibrillation and also contributes to his anxiety in the evening. Note difficulty in tolerating sleep studies in the past. We decided to pursue a strategy of controlling his panic disorder 1st, then seeking consultation regarding on oral appliance and possibly a repeat sleep study. I doubt that he will be able to tolerate CPAP. Advised weight loss. Assessment & Plan (07/31/2018 9:12 AM CANE SPLICER): Chronic and stable on current regimen Primary osteoarthritis of both wrists 03/15/2015 Overview (08/14/2020): 08/12-started naproxen 02/12-provided with orders for hand therapy Assessment & Plan (07/31/2018 9:12 AM CANE SPLICER): Symptoms worsening. Re-evaluate with x-ray today. May need referral to Orthopedics. Trial of diclofenac gel Panic disorder 03/15/2015 Assessment & Plan (05/03/2024 1:39 PM CANE SPLICER): Chronic and stable. Continue paroxetine. Assessment & Plan (08/25/2023 10:30 PM CDT): Chronic and stable except with triggers which occur rarely. Continue paroxetine. Assessment & Plan (08/13/2022 10:50 AM CDT): Chronic, controlled on current regimen. Assessment & Plan (03/11/2022 11:35 AM CDT): Chronic, controlled with addition of marijuana gummy. Advised that I cannot provide instructions for dosing or safety. I would not recommend taking this with lorazepam. Continue paroxetine. Assessment & Plan (02/13/2022 12:44 PM CDT): Fair control-continue present medication Assessment & Plan (08/09/2021 4:55 PM CDT): Improved with changed to paroxetine. Continue current dose of medication. Assessment & Plan (06/26/2021 9:55 AM CANE SPLICER): Uncontrolled. Stop fluoxetine. Start paroxetine 20 mg daily. Start lorazepam 0.5 mg twice daily scheduled. Essential hypertension 03/15/2015 Assessment & Plan (08/23/2024 2:29 PM CDT): Blood pressure is stable-continue current medication Assessment & Plan (05/03/2024 1:40 PM CANE SPLICER): Chronic, controlled. Continue current lisinopril, metoprolol, furosemide and recommend periodic home monitoring. Assessment & Plan (08/25/2023 10:30 PM CDT): Chronic, controlled. Continue current medication regimen and recommend periodic home monitoring. Assessment & Plan (01/31/2023 12:03 PM CDT): Chronic, controlled. Continue current medication regimen and recommend periodic home monitoring. Assessment & Plan (08/13/2022 10:48 AM CDT): Chronic, controlled. Continue current regimen. Assessment & Plan (07/16/2022 11:56 AM CANE SPLICER): Blood pressure is stable-continue current medication Assessment & Plan (02/13/2022 12:44 PM CDT): Blood pressure is controlled-continue current medication Assessment & Plan (11/27/2021 12:12 PM CDT): BP under fair control-continue current medication Assessment & Plan (11/02/2021 10:47 AM CDT): Well controlled-continue current meds Assessment & Plan (06/26/2021 9:54 AM CANE SPLICER): Controlled-continue current medication Assessment & Plan (07/31/2018 9:11 AM CANE SPLICER): Fair control. Continue present regimen and work on exercise Resolved Problems Problem Noted Date Diagnosed Date Resolved Date Rib pain on left side 04/22/20242023 Assessment & Plan (05/03/2024 1:43 PM CANE SPLICER): Recent problem, now resolved. Suspect rib injury after fall. Assessment & Plan (04/22/2024 9:28 PM CANE SPLICER): Recent problem, pain is uncontrolled. No rib fracture on x-ray. There is a possible compression fracture of a lower spine vertebrae but this was also noted in June therefore unlikely a result of his most recent fall. Granulomas also noted. I will call him to discuss results. Supportive care instructions provided. Consider advanced imaging if pain remains uncontrolled or worsening. Acute bilateral low back malachi n without sciatica 06/29/2023 08/23/2024 Assessment & Plan (06/29/2023 9:41 PM CANE SPLICER): New problem after fall. Lumbar spine, right hip and pelvis xray today without fracture. Degenerative changes noted. Suspect lumbar strain, cannot completely exclude lumbar or pelvic fracture and consider CT if pain fails to improve. Medrol Dosepak and Flexeril prescribed. Hope to avoid opioids but reconsider if needed. Urinary frequency 06/29/2023 08/20/2023 Assessment & Plan (06/29/2023 9:46 PM CANE SPLICER): New problem today. Significance is unclear. Concern for potential hyperglycemia. POC glucose and urine dipstick are normal. Follow-up if worsening or fails to improve. Pyelonephritis 07/16/2022 01/31/2023 Assessment & Plan (07/16/2022 11:55 AM CANE SPLICER): Clinically improved. Sent request for hospital records. Follow-up CBC, CMP today. Finish course of antibiotics. Follow-up with Urology as scheduled. Drug reaction 06/26/2021 08/09/2021 Assessment & Plan (06/26/2021 9:52 AM CANE SPLICER): Stop gabapentin-listed as allergy. He should experience resolution of his rash within 1 week. Hypokalemia 04/12/2020 08/14/2020 Pneumonia due to COVID-19 virus 04/11/2020 08/14/2020 Overview (08/14/2020): 04/14-hospitalized with COVID Rapid improvement in oxygenation overnight Treated with dexamethasone initially, did not meet criteria for full course CT chest c/w viral pneumonia. No PE Transient global amnesia 11/19/2018 Overview (07/28/2019): 12/11-hospitalized with an episode of memory loss/confusion MRI of the brain was normal except for 1.4 cm maxillary cystic lesion near the midline of uncertain significance MRA of the carotid arteries normal Skin lesion of scalp 07/31/2018 019 Overview (07/31/2018): Suspect benign seborrheic keratosis Assessment & Plan (07/31/2018 9:13 AM CANE SPLICER): New problem. Suspect this is a benign seborrheic keratosis. Plan to observe for now BMI 30.0-30.9,adult 07/06/2018 12/10/19 19 Assessment & Plan (07/31/2018 9:11 AM CANE SPLICER): Discussed need for weight loss Recommend a diet high in fruits, vegetables, legumes and low in processed foods. Recommend regular physical activity as patient's condition allows. Assessment & Plan (07/06/2018 2:42 PM CANE SPLICER): Reviewed diet, decrease caloric intake, decrease portion size, avoid snacking, and exercise most days of the week with regular walking as tolerated. Medicare annual wellness visit, subsequent 01/19/2017 08/22/2024 Assessment & Plan (08/23/2024 1:55 PM CDT): Health maintenance reviewed: Recommend getting Shingrix vaccine at the pharmacy Recommend getting RSV vaccine at the pharmacy Lab testing to monitor chronic conditions Assessment & Plan (08/24/2023 3:21 PM CDT): Reviewed health maintenance: Recommend Shingrix and Tdap vaccines. Declines COVID vaccine. Lab testing ordered to monitor chronic conditions. Assessment & Plan (08/13/2022 10:49 AM CDT): Reviewed health maintenance: Recommend Shingrix and Tdap vaccines Lab testing ordered to monitor chronic conditions. Assessment & Plan (02/13/2022 12:43 PM CDT): Health maintenance updates: Recommend influenza vaccine and bivalent COVID vaccine in late February. Also recommend getting Tdap and Shingrix vaccines Recommend a diet high in fruits and vegetables and low in processed foods. Practice good portion control and try to avoid eating late at night. Recommend regular physical activity Insomnia 09/01/2015 07/29/2017 Encounters Date Type Department Care Team Description 08/24/2024 Results Follow-Up [facility] [place] [id number] [place] [address] [address] [place] [id number] Zacarias Angel MD Urinalysis reflex to microscopic and culture Urine, Hemoglobin A1c, Thyroid Function [place], Additional followed-up results: 5 08/23/2024 2:[address] [facility] [place] [facility] [address] [place] [id number] Medicare annual wellness visit, subsequent; Ventricular tachycardia (HCC); Class 2 severe obesity due to excess calories with serious comorbidity and body mass index (BMI) of 38.0 to 38.9 in adult (HCC); Essential hypertension; Other hyperlipidemia; Paroxysmal atrial fibrillation (HCC); Impaired fasting glucose; Gastroesophageal reflux disease without esophagitis; Benign prostatic hyperplasia with urinary obstruction; Obstructive sleep apnea syndrome; S/P right hip fracture; Leg length discrepancy 08/23/2024 2:00 PM CDT Office Visit [facility] Primary Care at [address] [phone] Zacarias Angel MD Medicare annual wellness visit, subsequent (Primary Dx); Leg length discrepancy; Ventricular tachycardia (HCC); Class 2 severe obesity due to excess calories with serious comorbidity and body mass index (BMI) of 38.0 to 38.9 in adult (HCC); Essential hypertension; Other hyperlipidemia; Paroxysmal atrial fibrillation (HCC); Impaired fasting glucose; Gastroesophageal reflux disease without esophagitis; Benign prostatic hyperplasia with urinary obstruction; Obstructive sleep apnea syndrome; Recurrent major depressive disorder, in partial remission; S/P right hip fracture 07/14/2024 Orders Only [facility] Primary Care at [address] [phone] Zacarias Angel MD from Last 3 Months Immunizations Immunization Administration Dates Next Due Influenza, Quadrivalent, Hig h Dose, Preservative Free, Intrr 03/11/2022,02/14/2021,04/12/2020 Influenza, Trivalent, High D ose, Split, Preservative Free, Intramuscular 04/23/2024,02/01/2019,01/29/2018,04/01,07/25/2016,03/15/2015 Moderna SARS-CoV-2 Monovalen t Vaccination (12+ YRS) 02/20/2021 Pneumococcal Conjugate PCV 13 03/15/2015 Pneumococcal Polysaccharide PPV23 07/25/2016 Tdap 04/30/2021 Surgical History Surgery Date Site/Laterality Comments CARPAL TUNNEL RELEASE bilateral carpal tunnel release Medical History Medical History Date Comments Hypertension Shortness of breath Carpal tunnel syndrome, bilateral Tachycardia Obesity JENNIFER (obstructive sleep apnea) No t tolerating CPAP machine Transient global amnesia 11/19/201812/11-ho spitalized with an episode of memory loss/confusion MRI of the brain was normal except for 1.4 cm maxillary cystic lesion near the midline of uncertain significance MRA of the carotid arteries normal Pneumonia due to COVID-19 virus 04/11/202004/14-hospitalized with COVID Rapid improvement in oxygenation overnight Treated with dexamethasone initially, did not meet criteria for full course CT chest c/w viral pneumonia. No PE Pyelonephritis 07/16/2022 Rib pain on left side 04/22/2024 Family History Medical History Relation Name Comments Heart disease Brother 2 Cardiovascular disease; Cause of : Cardiovascular disease Hypertension Brother 3 Hypertension; Hypertension Father Hypertension; Stroke Father Stroke; Asthma Mother Asthma; Diabetes type II Mother Diabetes me llitus type 2; Cause of : Diabetes mellitus type 2 Hypertension Mother Hypertension; Sleep apnea Other Family history of Sleep apnea; Relation Name Status Comments Brother 1 Brother 2 Brother 3 Father Mother Other Social History Tobacco Use Types Packs/Day Years Used Date Smoking Tobacco: Former Cigarettes 1 17 0 01/20/1980 - 01/19/1997 Smokeless Tobacco: Never Tobacco Cessation:Counseling Given: Not Answered Comments:Smoking History Packs/day: 1 Packs Alcohol Use Standard Drinks/Week Comments Yes 4 (1 standard drink = 0.6 oz pur e alcohol) [facility] Utilities Answer Date Recorded In the past 12 months has e electric, gas, oil, or water company threatened to shut off services in your home? No 02/12/2024 Social Connection and Isolat ion Panel [NHANES] Answer Date Recorded In a typical week, how many times do you talk on the phone with family, friends, or neighbors? More than three times a week 02/12/2024 How often do you get togethe r with friends or relatives? Three times a week 02/12/2024 How often do you attend chur ch or scientology services? Never 02/12/2024 Do you belong to any clubs o r organizations such as christian groups, unions, fraternal or athletic groups, or school groups? No 02/12/2024 How often do you attend meet ings of the clubs or organizations you belong to? Never 02/12/2024 Are you , , di vorced, , never , or living with a partner? 02/12/2024 AUDIT-C Answer Date Recorded Q1: How often do you have a drink containing alc ohol? Monthly or less 08/22/2023 Q2: How many drinks containi ng alcohol do you have on a typical day when you are drinking? 1 or 2 08/22/2023 Q3: How often do you have si x or more drinks on one occasion? Never 08/22/2023 Overall Financial Resource Strain (CARDIA) Answe r Date Recorded How hard is it for you to pa y for the very basics like food, housing, medical care, and heating? Not very hard 02/12/2024 PHQ-2 Answer Date Recorded PHQ-2 Total Score (If total score is 3 or more points, staff should administer the PHQ-9) 2 08/23/2024 Exercise Vital Sign Answer Date Recorde d On average, how many days pe r week do you engage in moderate to strenuous exercise (like a brisk walk)? 0 days Minutes of Exercise per Session Not on file 08/22/2023 Hunger Vital Sign Answer Date Recorded Within the past 12 months, y ou worried that your food would run out before you got the money to buy more. Never true 02/12/20 24 Within the past 12 months, t he food you bought just didn't last and you didn't have money to get more. Never true 02/12/2024 PRAPARE - Transportation Answer Date Re corded
--- OUTSIDE RECORDS SUMMARY | 2024-10-10 14:02 | XMS_ITS | Encounter Summary ---
Author Organization [facility] Address [address] [place] [address] Phone Care Team Providers Care Copy Center Operator Name Role Phone Zacarias Angel MD Primary Care Provider + [phone] Khadijah Mercado MA Unavailable [phone] Sherin Arita MA Unavailable Iveth Dawn RN Unavailable Debbie Rodriguez [facility] Unavailable Lily Freire RN Unavailable [phone] Misty Osuna admissions recruiter Unavailable UnavailSelene Cervantes RN Unavailable Misty Osuna admissions recruiter Unavailable UnavailZacarias Theodore MD Primary Care Provider + [phone] Go SHAH MD, Sebastien Paz Unavailable Encounter Details Date Type Department Care Team (Late st Contact Info) Description 07/29/2017 Orders Only [facility] ProviderElle MD [address] [place] [address] Social History Tobacco Use Types Packs/Day Years Used Date Smoking Tobacco: Former Cigarettes 1 17 0 01/20/1980 - 01/19/1997 Smokeless Tobacco: Never Comments:Smoking History Pac ks/day: 1 Packs Alcohol Use Standard Drinks/Week Comments Yes 0 (1 standard drink = 0.6 oz pur e alcohol) Sex and Gender Information Value Date Recorded Sex Assigned at Not on file Legal Sex Male 4:40 PM SYSTEMS COORDINATOR Gender Identity Not on file Sexual Orientation Not on file documented as of this encounter Plan of Treatment Not on file documented as of this encounter Procedures Procedure Name Priority Date/Time Associated Diagnosis Comments DISCHARGE LABORATORY CUMULATIVE REPORT 07/29/2017 12:00 AM SYSTEMS COORDINATOR documented in this encounter Results * DISCHARGE LABORATORY CUMULATIVE REPORT (07/29/2017 12:00 AM SYSTEMS COORDINATOR) Narrative 07/29/2017 12:00 AM SYSTEMS COORDINATOR Ordered by an unspecified provider. us Historical Provider LAB BLOOD ORDERABLES Vanessa l Result documented in this encounter Visit Diagnoses Not on filedocumented in this encounter Additional Health Concerns Infection Onset Date Last Indicated Resolved Time COVID: Suspected 04/11/2020 04/11/2020 04/11/2020 6:54 PM SYSTEMS COORDINATOR COVID19 04/11/2020 04/11/2020 04/26/2020 3:06 AM SYSTEMS COORDINATOR COVID: Recovered Comment:Added based on recent COVID infection. 04/26/2020 04/26/2020 08/24/2020 3:06 AM C DT COVID: Suspected 03/16/2021 03/16/2021 03/17/2021 3:56 AM CDT documented as of this encounter Care Teams Copy Center Operator Relationship Specialty Start Date End Date Zacarias Angel MD PCP - General 08/23/16 08/22/[address] [place] [address] [facility] [place] [address] PCP - General Internal Medicine 08/23/24 Khadijah Mercado MA [address] [place] [address] ACO Care Interventional Cardiologist 11/20/18 11/23/18 Sherin Arita MA [address] [place] [address] [address] [place] [address] ACO Care Interventional Cardiologist 04/13/20 04/13/20 Iveth Dawn, JAQUI [address] [place] [address] [address] [place] [address] [employer] 05/09/21 06/10/21 Debbie Rodriguez, [address] [place] [address] Pharmacist Pharmacy 12/21/21 05/05/22 Lily Freire, JAQUI [address] [place] [address] [address] [place] [address] [facility] 07/11/22 07/28/22 Misty Osuna, [facility] ACO Medication Auto Transport Driver Pharmacy 02/21/23 05/28/23 Selene Rod RN [address] [place] [address] [address] [place] [address] [employer] 02/12/24 03/24/24 Misty Osuna, [facility] ACO Medication Auto Transport Driver Pharmacy 03/26/24 04/25/24 Sebastien Stiles III, MD [address] [facility] [address] [address] Consulting Physician Cardiology 08/23/24 documented as of this encounter
--- NOTE | 2024-10-10 14:29 | ECG_ITS ---
Test Date: 2024-10-10 14:33:30 Measurements Intervals [place] Rate: 89 P: 93 MS: 167 QRS: 26 QRSD: 89 T: 68 QT: 370 QTc: 452 Interpretive Statements SINUS RHYTHM MODERATE ST DEPRESSION [0.05+ mV ST DEPRESSION] No previous ECG available for comparison Electronically Signed On 10-11-2024 10:41:11 CDT by Ladarius Holbrook M.D.
--- NOTE | 2024-10-10 14:31 | ED_ITS ---
HPI - SOB/Dyspnea General Chief Complaint: Shortness of Breath/Dyspnea Stated Complaint: SHORT OF BREATH X4 DAYS Time Seen by Provider: 10/10/24 14:19 History of Present Illness HPI Narrative: 78-year-old male with history of hypertension, asthma, JENNIFER, anemia, AFib on Eliquis presents to the emergency department shortness of breath for the past 5 days. Patient reports shortness of breath with exertion and with lying flat. He also reports a productive cough with green sputum. Denies fever, shortness of breath, chest pain, abdominal pain, lower extremity edema, hemoptysis, recent surgeries or hospitalizations. States he went to urgent care 2 days ago and was prescribed an inhaler, antibiotics and steroids which he has been taking without improvement. He states that urgent care had a chest x-ray performed which showed an abnormality to his lung but he is unsure what it was. He does not normally wear oxygen at home but does state he was hospitalized a few years ago for similar situation at [facility] and was discharged with oxygen which he wore for couple of weeks. He denies history of COPD but does report a remote history of smoking, stopped smoking in 2004. Does endorse a history of asthma since he was a child. Has been using an albuterol inhaler with little relief. Related Data Home Medications Medication Instructions Recorded Confirmed Last Taken Type atorvastatin 10 mg tablet 10 mg PO DAILY 09/29/20 03/03/24 Unknown History pantoprazole 40 mg tablet,delayed 40 mg PO DAILY 09/29/20 03/03/24 Unknown History release apixaban 5 mg tablet (Eliquis) 5 mg PO Q12H 07/06/22 03/03/24 07/06/22 10:00 History furosemide 20 mg tablet 20 mg PO DAILY 07/06/22 03/03/24 Unknown History metoprolol succinate 50 mg 50 mg PO DAILY 07/06/22 03/03/24 Unknown History tablet,extended release 24 hr albuterol sulfate 90 mcg/actuation 2 inh inhalation Q4-6H PRN 01/20/24 03/03/24 Unknown History aerosol inhaler Shortness Of Breath Or Wheezing fluticasone 250 mcg-salmeterol 50 1 ea inhalation BID 01/20/24 03/03/24 Unknown History mcg/dose blistr powdr for inhalation (Wixela Inhub) Allergies Allergy/AdvReac Type Severity Reaction Status Date / Time No Known Allergies Allergy Verified 10/10/24 14:00 Review of Systems 2 Review of Systems: All systems reviewed & are unremarkable except as noted in HPI and below PMFSH Past Medical History Medical History Right hand dominant Peripheral neuropathy Claustrophobia Asthma Obstructive sleep apnea Intolerant to CPAP therapy Hyperlipidemia BPH (benign prostatic hyperplasia) Atrial fibrillation Hepatic steatosis Hypertension Surgical History Surgical History Status post open reduction with internal fixation of fracture Right humerus/shoulder Family History Family History Mother Diabetes mellitus Father Cerebrovascular accident Sibling Heart attack Social History Social History Social History: He reports that he lives with his and his dog (cristian gonzalese) they been for 58 years they have 3 children who are healthy.. He used to work in a body shop but retired several years ago. He used to smoke 2 packs per day for 35 years but quit smoking approximately 20 years ago. He denies illicit substance use. He used to drink in moderation but has not done so in many years. Code status: Full code (he stated he would like to discuss options with his family before changing his code status.) Smoking packs per day: 1 Smoking cigarettes per day: 20.0 Years smoked: 15 Smoking pack-years: 15.00 Smoking status: Former smoker Tobacco type: cigarettes Smoking end date: 08/23/05 Alcohol intake: never Substance use: never Substance use type: does not use Do You Feel Safe in your Home?: Yes Lack of Transportation: No Lack of Food: Never True Current Housing: I Have Housing Concerned About Future Housing: No Difficulty Paying Gas/Electric Bills: No Difficulty Paying for Meds: No Currently Unemployed: No Education: Trade/Vocational Certificate Difficulty w/ Childcare or Family Care: No Spiritual care concerns: No Exam 2 Narrative: GENERAL: Well-appearing, well-nourished, and in no acute distress. HEAD: Normocephalic, atraumatic. EYES: PERRLA and EOMI. ENT: Nares clear, no rhinorrhea or epistaxis. Mucous membranes moist. NECK: Supple. CHEST: Decreased lung sounds throughout all lung acuña with rhonchi. No rales or wheezing. Patient satting 88% on room air with mild exertional dyspnea HEART: Regular rate and rhythm. No murmur heard. Normal peripheral pulses. ABDOMEN: Soft, nontender, nondistended, normal active bowel sounds. EXTREMITIES: Normal range of motion. trace edema bilaterally SKIN: Warm, dry, no rash. NEURO: No focal deficits. Alert and oriented x3 Course Course Emergency Course: Patient became anxious while receiving DuoNeb. He was provided with a small dose of Ativan. Vital Signs Vital signs: Vital Signs Temperature 98.7 F 10/10/24 14:06 Pulse Rate 91 10/10/24 14:06 Respiratory Rate 25 H 10/10/24 14:06 Blood Pressure 166/99 H 10/10/24 14:06 Pulse Oximetry 92 10/10/24 14:06 Oxygen Delivery Room Air 10/10/24 14:06 Temperature 98.7 F 10/10/24 14:06 Pulse Rate 88 10/10/24 16:02 Respiratory Rate 20 10/10/24 16:02 Blood Pressure 143/82 H 10/10/24 16:02 Pulse Oximetry 93 10/10/24 16:20 Oxygen Delivery Nasal Cannula 10/10/24 14:52 Oxygen Flow Rate 2 10/10/24 14:52 MDM - SOB/Dyspnea MDM Narrative Medical decision making narrative: 78-year-old male with history of JENNIFER, asthma, hypertension, hyperlipidemia, AFib on Eliquis presents to the emergency department for shortness of breath for the past 5 days. Triage vitals with hypertension and tachypnea of 25. Patient was found to be hypoxic at 88% on room air with conversational dyspnea, he was placed on 2 L nasal cannula no satting 95% no distress. He does have decreased lung sounds and rhonchi throughout all lung acuña. CBC with mild leukocytosis of 10.6, otherwise unremarkable. Chemistries are unremarkable. ABG with normal pH is 7.439, pCO2 is normal at 37.9, PO2 of 69 and bicarb of 25.1. BNP is mildly elevated at 422, however this is normal when age adjusted. Chest x-ray shows mild pulmonary vascular congestion without acute focal infiltrate or effusion. EKG shows normal sinus rhythm with rate of 89 ppm, normal [place] interval, normal QRS duration, normal QTC, no ischemic changes. Troponin undetectable. Patient updated on results. He denies history of CHF but is prescribed 20 mg of Lasix. A dose of Lasix was provided in the ED. No prior echo for comparison. He has trace edema to bilateral lower extremities which is unchanged from baseline. I did offer admission [facility] in the setting of asthma exacerbation, diureses and echo. Patient declined and states he cannot leave his at home by herself. Patient ambulated around the ED without O2 and satting 88-92%. He did have some conversational dyspnea upon arriving back to his room, however this resolved quickly. States overall he feels better and still wants to go home. His lung sounds have improved. Tachypnea resolved. He agrees to return to the ED if his symptoms change or worsen. He is requesting refill on albuterol inhaler which was provided. Unfortunately, I cannot see on the mar what medications were prescribed by urgent care. The patient and both state it was an antibiotic and prednisone. I advised him to continue this. Also told them they can call the ER to relay the type of medication and dosing to ensure he is treated appropriately for asthma exacerbation/possible underlying COPD exacerbation. Lab Data 10/10/24 15:09 10/10/24 15:09 Labs: Lab Results 10/10/24 Range/Units 15:09 WBC 10.6 H (4.5-10.0) K/mm3 RBC 4.86 (4.6-6.20) M/mm3 Hgb 14.6 (14.0-18.0) g/dL Hct 43.2 (42.0-52.0) % MCV 88.9 (80-100) fl MCH 30.0 (26-34) pg MCHC 33.8 (32-36) g/dl RDW 14.1 (11.5-14.5) % Plt Count 220 (150-375) k/mm3 MPV 10.2 (7.4-10.4) fl Immature Gran % (Auto) 1.5 H (0-0.5) % Neut % (Auto) 67.1 (45.5-73.1) % Lymph % (Auto) 22.1 (18.3-44.2) % Walton % (Auto) 8.1 (2.6-8.5) % Eos % (Auto) 0.4 (0-4.4) % Baso % (Auto) 0.8 (0.2-1.2) % Lymph # (Auto) 2.35 (0.9-3.2) K/mm3 Walton # (Auto) 0.9 H (0.1-0.6) K/mm3 Eos # (Auto) 0.0 (0-0.3) K/mm3 Baso # (Auto) 0.1 (0.0-0.1) K/mm3 Abs Immat Gran (auto) 0.16 H (0.00-0.031) K/mm3 Absolute Neuts (auto) 7.1 H (1.3-6.7) K/mm3 Absolute Nucleated RBC 0.000 (0.0-0.012) K/mm3 Nucleated RBC % 0.0 (0.0-0.2) % PT 14.9 H (11.1-14.7) Seconds INR 1.1 APTT 29.2 (22.3-36.8) Seconds Sodium 140 (137-145) mmol/L Potassium 3.9 (3.4-5.0) mmol/L Chloride 105 (98-107) mmol/L Carbon Dioxide 27 (22-30) mmol/L Anion Gap 8 (4-12) mmol/L BUN 17 (9-20) mg/dL Creatinine 0.92 (0.7-1.3) mg/dL Estim Creat Clear Calc 75 ml/min Estimated GFR > 60 (59 - ) Glucose 147 H (65-110) mg/dL Calcium 8.7 (8.4-10.2) mg/dL Magnesium 1.8 (1.6-2.3) mg/dL Total Bilirubin 0.9 (0.2-1.3) mg/dL AST 47 (17-59) U/L ALT 49 (6-50) U/L Alkaline Phosphatase 94 (38-126) U/L Troponin I < 0.012 (0.000-0.034) ng/mL NT-Pro-B Natriuret Pep 422 H (19.9-100) pg/mL Total Protein 7.0 (6.3-8.2) g/dL Albumin 4.2 (3.5-5.1) g/dL ABG Data ABG results: 10/10/24 15:01 Puncture Site Left radial ABG pH 7.439 ABG pCO2 37.9 ABG pO2 69.0 L ABG PO2/FiO2 Ratio 2.46 ABG HCO3 25.1 ABG O2 Saturation 94.5 L ABG O2 Content 20.1 ABG Base Excess 1.1 A-a Gradient 85.9 Oxyhemoglobin 92.9 Total Hemoglobin 15.4 O2 Delivery Device Nasal cannula O2 Liters/Min 2.0 FiO2 28 Discharge Plan Discharge Clinical Impression: Asthma exacerbation Qualifiers: Asthma severity: unspecified severity Asthma persistence: unspecified Qualified Code(s): J45.901 - Unspecified asthma with (acute) exacerbation Pulmonary edema Qualifiers: Chronicity: acute Qualified Code(s): J81.0 - Acute pulmonary edema Patient Disposition: Home Condition: Stable Instructions: Antibiotic Form, Asthma (ED), Pulmonary Edema (ED) Additional Instructions: You were evaluated in the emergency department for shortness of breath. Your found have some fluid on your lungs. Your presentation is also consistent with an asthma exacerbation. Take steroids and antibiotics as directed. Use your albuterol inhaler as directed. Continue taking your furosemide as directed. Follow-up closely with her primary care provider. Return to the emergency department if you develop chest pain, shortness of breath, fever of 100.4 or greater, or other concerning symptoms. Patient Language: Faroese Prescriptions: New albuterol sulfate 90 mcg/actuation HFA aerosol inhaler 1 inh inhalation QID PRN (Reason: shortness of breath or wheezing) Qty: 6.7 0RF No Action atorvastatin 10 mg tablet 10 mg PO DAILY pantoprazole 40 mg tablet,delayed release (DR/EC) 40 mg PO DAILY tamsulosin [Flomax] 0.4 mg capsule 0.4 mg PO HS Qty: 30 0RF finasteride [Proscar] 5 mg Tablet 5 mg PO QAM Qty: 90 1RF acetaminophen 500 mg capsule 1,000 mg PO Q6H PRN (Reason: pain) Qty: 20 0RF fluticasone propion-salmeterol [Wixela Inhub] 250-50 mcg/dose blister with device 1 ea INHALATION BID albuterol sulfate 90 mcg/actuation HFA aerosol inhaler 2 inh INHALATION Q4-6H PRN (Reason: Shortness Of Breath Or Wheezing) polyethylene glycol 3350 [Miralax] 17 gram Powder In Packet 17 g PO QAM PRN (Reason: Constipation) Qty: 30 0RF sennosides-docusate sodium [Senokot-S] 8.6-50 mg Tablet 2 tab PO BID Qty: 30 0RF docusate sodium 100 mg Capsule 100 mg PO Q12H PRN (Reason: Constipation) Qty: 30 0RF Eliquis 5 mg tablet 5 mg PO Q12H metoprolol succinate 50 mg tablet extended release 24 hr 50 mg PO DAILY furosemide 20 mg tablet 20 mg PO DAILY acetaminophen-codeine 300-30 mg tablet 1 tablet PO Q4-6H PRN (Reason: pain) Qty: 120 0RF Follow-up/Referrals: PHYSICIAN NOT ON STAFF,NONSTAFF [Primary Care Provider] -
--- OUTSIDE RECORDS SUMMARY | 2024-10-10 14:33 | XMS_ITS | Referral Summary ---
Author Organization [facility] Address [address] [place] [address] Care Team Providers Care Patient Care Nursing Assistant Name Role Phone Zacarias Angel MD Primary Care Provider Go SHAH MD, Sebastien Paz Unavailable [phone] Encounters Date Type Department Care Team Description 08/24/2024 Results Follow-Up [facility] Primary Care at [address] [address] Zacarias Angel MD Urinalysis reflex to microscopic and culture Urine, Hemoglobin A1c, Thyroid Function [place], Additional followed-up results: 5 08/23/2024 2:35 PM CDT Lab [facility] - [address] [address] Medicare annual wellness visit, subsequent; [...] discrepancy 08/23/2024 2:00 PM CDT Office Visit [facility] Primary Care at [address] [address] Zacarias Angel MD Medicare annual wellness visit, subsequent (Primary Dx); Leg length discrepancy; Ventricular tachycardia (HCC); Class 2 severe obesity due to excess calories with serious comorbidity and body mass index (BMI) of 38.0 to 38.9 in adult (HCC); Essential hypertension; Other hyperlipidemia; Paroxysmal atrial fibrillation ([facility]); Impaired fasting glucose; Gastroesophageal reflux disease without esophagitis; Benign prostatic hyperplasia with urinary obstruction; Obstructive sleep apnea syndrome; Recurrent major depressive disorder, in partial remission; S/P right hip fracture 07/14/2024 Orders Only [facility] Medical Group Primary Care at [address] [place] [address] [place] [address] Zacarias Angel MD from Last 3 Months [...] 02/23/2024 Assessment & Plan (04/23/2024 12:30 PM CEO AND FOUNDER): Improving but slowly. Encouraged home exercises. Offered [...] problems. Assessment & Plan (07/14/2023 11:47 AM CEO AND FOUNDER): Unspecified fracture of the lumbar spine. Requested hospital records today. Neurologic exam is intact. Continue with extra-strength Tylenol. May also benefit from lgjg-[id number]-[id number] lidocaine patch. Eventually, we will screen for osteoporosis with bone density testing but decided to hold off today due to his back discomfort. Continue with home physical therapy. Further recommendations pending record review. Follow-up with me as scheduled in July Head injury 06/29/2023 Assessment & Plan (06/29/2023 9:44 PM CEO AND FOUNDER): New problem. Normal neurological exam. Suspect headaches are due to sinus symptoms but cannot exclude intracranial hemorrhage given age and since on Eliquis. CT head ordered. Seek emergency care with concerning symptoms. Rhinitis medicamentosa 06/29/2023 Assessment & Plan (06/29/2023 9:47 PM CEO AND FOUNDER): New problem. Discussed diagnosis. Stop Afrin now. Restart nasal saline rinses and Flonase daily. Current use of longwall foreman anticoagulation 023 Assessment & Plan (01/31/2023 12:49 [...] needed. Assessment & Plan (07/16/2022 11:55 AM CEO AND FOUNDER): Recent mild exacerbation, now improved. Refilled albuterol to use as needed Skin lesion of chest wall 03/11/2022 Assessment & Plan (06/29/2023 9:48 PM CEO AND FOUNDER): New problem. Concern for actinic keratosis. Referral ordered with dermatology. Assessment & Plan (03/11/2022 11:37 AM CDT): New problem. Note that symptoms are improving. Possible mild case of shingles. He is out of the window for antiviral therapy since there are no new lesions. He may try [id number]-vxc-jgkthgc topical hydrocortisone as needed in case contact [...] 08/27/2021 Assessment & Plan (06/04/2023 2:26 PM CEO AND FOUNDER): No recurrence. --Metoprolol and apixaban as above. Assessment & Plan (06/04/2022 11:57 AM CEO AND FOUNDER): Doing well, no recurrence. Consider CTI ablation [...] daily Assessment & Plan (07/30/2021 10:41 PM CEO AND FOUNDER): New problem. Exact etiology is unclear. ECG [...] today. Assessment & Plan (04/23/2024 12:26 PM CEO AND FOUNDER): Clinically stable with RRR on exam. Continue [...] planned. Assessment & Plan (06/04/2023 2:25 PM CEO AND FOUNDER): Stable. No symptomatic episodes recently. Favor continued expectant management. --Continue metoprolol XL 50 mg daily --Continue apixaban 5 mg BID Call with any symptoms. Assessment & Plan (01/31/2023 12:00 PM CDT): Clinically stable with RRR on exam. See plan for anticoagulation. Assessment & Plan (08/13/2022 12:45 PM CDT): Clinically stable. Continue Eliquis. Assessment & Plan (07/16/2022 11:55 AM CEO AND FOUNDER): Clinically stable. Hematuria has resolved. Continue Eliquis. Check CBC today. Assessment & Plan (06/04/2022 11:56 AM CEO AND FOUNDER): Doing well, no recent symptomatic arrhythmia. Continue expectant strategy for now. [id number] = 3 (age, hypertension). --Continue apixaban 5 [...] atrial flutter, catheter ablation may be preferred. [id number] = 2. Recommend indefinite anticoagulation. --Continue metoprolol XL 50 mg daily --Continue apixaban 5 mg PO BID --I encouraged continued efforts at weight loss --CPAP Assessment & Plan (08/09/2021 4:55 PM CDT): Await the results of his monitor. Continue current medication for now Assessment & Plan (07/31/2021 10:02 AM CEO AND FOUNDER): ECG today with sinus rhythm and APCs. Both probably from untreated sleep apnea. Continue with event monitor as planned. Continue current metoprolol and Eliquis. Assessment & Plan (06/26/2021 9:53 AM CEO AND FOUNDER): Recent diagnosis, strongly suspect this is related to underlying untreated sleep apnea. At this time, we decided to continue beta-gale and Eliquis. He will get monitor placed as ordered. We discussed referral to Cardiology and decided to hold off at this time. Traumatic closed displaced f racture of right shoulder with anterior dislocation 04/30/2021 Overview (04/30/2021): Added automatically from request for surgery [id number] Benign prostatic hyperplasia with urinary obstru ction [...] urology. Assessment & Plan (07/14/2023 11:48 AM CEO AND FOUNDER): Acute urinary retention in the in the setting of chronic BPH. He will keep upcoming appointment with Urology for voiding trial/Martin removal Assessment & Plan (08/13/2022 12:45 PM CDT): No current symptoms of obstruction. Continue Flomax and follow-up with urology as planned. Assessment & Plan (07/16/2022 11:56 AM CEO AND FOUNDER): Bladder outlet obstruction presumably due to recent urinary infection. Martin catheter in place-continue routine Martin care, follow-up with Urology as scheduled Assessment & Plan (06/26/2021 9:53 AM CEO AND FOUNDER): Now improved. Suspected secondary to BPH. At [...] today Assessment & Plan (05/03/2024 1:41 PM CEO AND FOUNDER): Body mass index is 38.02 kg/m . [...] provided. Assessment & Plan (07/16/2022 11:56 AM CEO AND FOUNDER): Weight is down a few lb, likely [...] loss Assessment & Plan (06/26/2021 9:53 AM CEO AND FOUNDER): Strongly advised that he lose weight. Discussed diet and starting a walking program. Impaired fasting glucose 04/27/2020 Assessment & Plan (08/23/2024 2:29 PM CDT): Re-evaluate today-cannot exclude progression to type 2 diabetes given obesity and inactivity Assessment & Plan (05/03/2024 1:40 PM CEO AND FOUNDER): Reevaluate today with A1c ordered. Advised healthy, [...] 01/29/2018 Assessment & Plan (07/31/2018 9:13 AM CEO AND FOUNDER): Uncontrolled. He will stop Flonase as this [...] uncontrolled. Assessment & Plan (07/31/2018 9:12 AM CEO AND FOUNDER): Fair control. Reviewed risks of proton pump [...] statin. Assessment & Plan (07/31/2018 9:12 AM CEO AND FOUNDER): Chronic and stable. Continue present regimen Obstructive [...] appliance Assessment & Plan (06/26/2021 9:54 AM CEO AND FOUNDER): Uncontrolled. I suspect this has contributed to [...] loss. Assessment & Plan (07/31/2018 9:12 AM CEO AND FOUNDER): Chronic and stable on current regimen Primary osteoarthritis of both wrists 03/15/2015 Overview (08/14/2020): 08/12-started naproxen 02/12-provided with orders for hand therapy Assessment & Plan (07/31/2018 9:12 AM CEO AND FOUNDER): Symptoms worsening. Re-evaluate with x-ray today. May need referral to Orthopedics. Trial of diclofenac gel Panic disorder 03/15/2015 Assessment & Plan (05/03/2024 1:39 PM CEO AND FOUNDER): Chronic and stable. Continue paroxetine. Assessment & [...] medication. Assessment & Plan (06/26/2021 9:55 AM CEO AND FOUNDER): Uncontrolled. Stop fluoxetine. Start paroxetine 20 mg daily. Start lorazepam 0.5 mg twice daily scheduled. Essential hypertension 03/15/2015 Assessment & Plan (08/23/2024 2:29 PM CDT): Blood pressure is stable-continue current medication Assessment & Plan (05/03/2024 1:40 PM CEO AND FOUNDER): Chronic, controlled. Continue current lisinopril, metoprolol, furosemide [...] regimen. Assessment & Plan (07/16/2022 11:56 AM CEO AND FOUNDER): Blood pressure is stable-continue current medication Assessment & Plan (02/13/2022 12:44 PM CDT): Blood pressure is controlled-continue current medication Assessment & Plan (11/27/2021 12:12 PM CDT): BP under fair control-continue current medication Assessment & Plan (11/02/2021 10:47 AM CDT): Well controlled-continue current meds Assessment & Plan (06/26/2021 9:54 AM CEO AND FOUNDER): Controlled-continue current medication Assessment & Plan (07/31/2018 9:11 AM CEO AND FOUNDER): Fair control. Continue present regimen and work on exercise Resolved Problems Problem Noted Date Diagnosed Date Resolved Date Rib pain on left side 04/22/20242023 Assessment & Plan (05/03/2024 1:43 PM CEO AND FOUNDER): Recent problem, now resolved. Suspect rib injury after fall. Assessment & Plan (04/22/2024 9:28 PM CEO AND FOUNDER): Recent problem, pain is uncontrolled. No rib [...] 08/23/2024 Assessment & Plan (06/29/2023 9:41 PM CEO AND FOUNDER): New problem after fall. Lumbar spine, right hip and pelvis xray today without fracture. Degenerative changes noted. Suspect lumbar strain, cannot completely exclude lumbar or pelvic fracture and consider CT if pain fails to improve. Medrol Dosepak and Flexeril prescribed. Hope to avoid opioids but reconsider if needed. Urinary frequency 06/29/2023 08/20/2023 Assessment & Plan (06/29/2023 9:46 PM CEO AND FOUNDER): New problem today. Significance is unclear. Concern for potential hyperglycemia. POC glucose and urine dipstick are normal. Follow-up if worsening or fails to improve. Pyelonephritis 07/16/2022 01/31/2023 Assessment & Plan (07/16/2022 11:55 AM CEO AND FOUNDER): Clinically improved. Sent request for hospital records. Follow-up CBC, CMP today. Finish course of antibiotics. Follow-up with Urology as scheduled. Drug reaction 06/26/2021 08/09/2021 Assessment & Plan (06/26/2021 9:52 AM CEO AND FOUNDER): Stop gabapentin-listed as allergy. He should experience [...] keratosis Assessment & Plan (07/31/2018 9:13 AM CEO AND FOUNDER): New problem. Suspect this is a benign seborrheic keratosis. Plan to observe for now BMI 30.0-30.9,adult 07/06/2018 12/10/19 19 Assessment & Plan (07/31/2018 9:11 AM CEO AND FOUNDER): Discussed need for weight loss Recommend a diet high in fruits, vegetables, legumes and low in processed foods. Recommend regular physical activity as patient's condition allows. Assessment & Plan (07/06/2018 2:42 PM CEO AND FOUNDER): Reviewed diet, decrease caloric intake, decrease portion [...] drink = 0.6 oz pur e alcohol) [facility] [employer] Answer Date Recorded In the past 12 months has [employer], gas, oil, or water [employer] threatened to shut off services in your [...] 02/12/2024 How often do you attend chur [place] or rastafari services? Never 02/12/2024 Do you belong to any clubs o r organizations such as alevism groups, unions, fraternal or athletic groups, or [...] place to sleep or slept in a prison (including now)? No 07/12/2022 Housing Stability Vital Sign Answer Jeffrey e Recorded In the last 12 months, was t here a time when you were not able to pay the mortgage or rent on time? No 02/12/2024 Number of Times Moved in the Last Year Not on fi le 02/12/2024 At any time in the past 12 m [facility], were you homeless or living in a prison (including now)? No 02/12/2024 Sex and Gender Information Value Date Recorded Sex Assigned at Not on file Legal Sex Male 4:40 PM CEO AND FOUNDER Gender Identity Not on file Sexual Orientation Not on file Last Filed Vital Signs Vital Sign Reading Time Taken Comments Blood Pressure 132/68 08/23/2024 1:36 PM CDT Pulse 79 08/23/2024 1:36 PM CDT Temperature 36.6 C (97.8 F) 08/23/2024 1:36 PM CDT Respiratory Rate 18 06/04/2022 11:30 AM CEO AND FOUNDER Oxygen Saturation 95% 08/23/2024 1:36 PM CDT Inhaled Oxygen Concentration - - Weight 121.6 kg (268 lb) 08/23/2024 1:36 PM CDT Height 177.8 cm (5' 10 ) 08/23/2024 1:36 PM CDT [id number]|2024-10-10 14:33:00|2024-10-10 14:32:00|XMS_ITS|BKG DAEMON|External Medical Summaries|[id number]|" Clinical Summary Created on: October 10, 2024 Cesar Dugan : 1945 Sex: Male Author Organization [facility] Address [address] [place] [address] Care Team Providers Care Patient Care Nursing Assistant Name Role Phone Zacarias Angel MD Primary Care Provider Go SHAH MD, Sebastien Paz Unavailable [phone] Allergies Active Allergy Reactions Criticality Noted Date [...] 02/23/2024 Assessment & Plan (04/23/2024 12:30 PM CEO AND FOUNDER): Improving but slowly. Encouraged home exercises. Offered [...] problems. Assessment & Plan (07/14/2023 11:47 AM CEO AND FOUNDER): Unspecified fracture of the lumbar spine. Requested hospital records today. Neurologic exam is intact. Continue with extra-strength Tylenol. May also benefit from [id number]-[id number] lidocaine patch. Eventually, we will screen for osteoporosis with bone density testing but decided to hold off today due to his back discomfort. Continue with home physical therapy. Further recommendations pending record review. Follow-up with me as scheduled in July Head injury 06/29/2023 Assessment & Plan (06/29/2023 9:44 PM CEO AND FOUNDER): New problem. Normal neurological exam. Suspect headaches are due to sinus symptoms but cannot exclude intracranial hemorrhage given age and since on Eliquis. CT head ordered. Seek emergency care with concerning symptoms. Rhinitis medicamentosa 06/29/2023 Assessment & Plan (06/29/2023 9:47 PM CEO AND FOUNDER): New problem. Discussed diagnosis. Stop Afrin now. [...] needed. Assessment & Plan (07/16/2022 11:55 AM CEO AND FOUNDER): Recent mild exacerbation, now improved. Refilled albuterol to use as needed Skin lesion of chest wall 03/11/2022 Assessment & Plan (06/29/2023 9:48 PM CEO AND FOUNDER): New problem. Concern for actinic keratosis. Referral ordered with dermatology. Assessment & Plan (03/11/2022 11:37 AM CDT): New problem. Note that symptoms are improving. Possible mild case of shingles. He is out of the window for antiviral therapy since there are no new lesions. He may try acxe-uqe-jtfrygu topical hydrocortisone as needed in case contact [...] 08/27/2021 Assessment & Plan (06/04/2023 2:26 PM CEO AND FOUNDER): No recurrence. --Metoprolol and apixaban as above. Assessment & Plan (06/04/2022 11:57 AM CEO AND FOUNDER): Doing well, no recurrence. Consider CTI ablation [...] daily Assessment & Plan (07/30/2021 10:41 PM CEO AND FOUNDER): New problem. Exact etiology is unclear. ECG [...] today. Assessment & Plan (04/23/2024 12:26 PM CEO AND FOUNDER): Clinically stable with RRR on exam. Continue [...] planned. Assessment & Plan (06/04/2023 2:25 PM CEO AND FOUNDER): Stable. No symptomatic episodes recently. Favor continued expectant management. --Continue metoprolol XL 50 mg daily --Continue apixaban 5 mg BID Call with any symptoms. Assessment & Plan (01/31/2023 12:00 PM CDT): Clinically stable with RRR on exam. See plan for anticoagulation. Assessment & Plan (08/13/2022 12:45 PM CDT): Clinically stable. Continue Eliquis. Assessment & Plan (07/16/2022 11:55 AM CEO AND FOUNDER): Clinically stable. Hematuria has resolved. Continue Eliquis. Check CBC today. Assessment & Plan (06/04/2022 11:56 AM CEO AND FOUNDER): Doing well, no recent symptomatic arrhythmia. Continue expectant strategy for now. [id number] = 3 (age, hypertension). --Continue apixaban 5 [...] atrial flutter, catheter ablation may be preferred. [id number] = 2. Recommend indefinite anticoagulation. --Continue metoprolol XL 50 mg daily --Continue apixaban 5 mg PO BID --I encouraged continued efforts at weight loss --CPAP Assessment & Plan (08/09/2021 4:55 PM CDT): Await the results of his monitor. Continue current medication for now Assessment & Plan (07/31/2021 10:02 AM CEO AND FOUNDER): ECG today with sinus rhythm and APCs. Both probably from untreated sleep apnea. Continue with event monitor as planned. Continue current metoprolol and Eliquis. Assessment & Plan (06/26/2021 9:53 AM CEO AND FOUNDER): Recent diagnosis, strongly suspect this is related to underlying untreated sleep apnea. At this time, we decided to continue beta-gale and Eliquis. He will get monitor placed as ordered. We discussed referral to Cardiology and decided to hold off at this time. Traumatic closed displaced f racture of right shoulder with anterior dislocation 04/30/2021 Overview (04/30/2021): Added automatically from request for surgery [id number] Benign prostatic hyperplasia with urinary obstru ction [...] urology. Assessment & Plan (07/14/2023 11:48 AM CEO AND FOUNDER): Acute urinary retention in the in the setting of chronic BPH. He will keep upcoming appointment with Urology for voiding trial/Martin removal Assessment & Plan (08/13/2022 12:45 PM CDT): No current symptoms of obstruction. Continue Flomax and follow-up with urology as planned. Assessment & Plan (07/16/2022 11:56 AM CEO AND FOUNDER): Bladder outlet obstruction presumably due to recent urinary infection. Martin catheter in place-continue routine Martin care, follow-up with Urology as scheduled Assessment & Plan (06/26/2021 9:53 AM CEO AND FOUNDER): Now improved. Suspected secondary to BPH. At [...] today Assessment & Plan (05/03/2024 1:41 PM CEO AND FOUNDER): Body mass index is 38.02 kg/m . [...] provided. Assessment & Plan (07/16/2022 11:56 AM CEO AND FOUNDER): Weight is down a few lb, likely [...] loss Assessment & Plan (06/26/2021 9:53 AM CEO AND FOUNDER): Strongly advised that he lose weight. Discussed diet and starting a walking program. Impaired fasting glucose 04/27/2020 Assessment & Plan (08/23/2024 2:29 PM CDT): Re-evaluate today-cannot exclude progression to type 2 diabetes given obesity and inactivity Assessment & Plan (05/03/2024 1:40 PM CEO AND FOUNDER): Reevaluate today with A1c ordered. Advised healthy, [...] 01/29/2018 Assessment & Plan (07/31/2018 9:13 AM CEO AND FOUNDER): Uncontrolled. He will stop Flonase as this [...] uncontrolled. Assessment & Plan (07/31/2018 9:12 AM CEO AND FOUNDER): Fair control. Reviewed risks of proton pump [...] statin. Assessment & Plan (07/31/2018 9:12 AM CEO AND FOUNDER): Chronic and stable. Continue present regimen Obstructive [...] appliance Assessment & Plan (06/26/2021 9:54 AM CEO AND FOUNDER): Uncontrolled. I suspect this has contributed to [...] loss. Assessment & Plan (07/31/2018 9:12 AM CEO AND FOUNDER): Chronic and stable on current regimen Primary osteoarthritis of both wrists 03/15/2015 Overview (08/14/2020): 08/12-started naproxen 02/12-provided with orders for hand therapy Assessment & Plan (07/31/2018 9:12 AM CEO AND FOUNDER): Symptoms worsening. Re-evaluate with x-ray today. May need referral to Orthopedics. Trial of diclofenac gel Panic disorder 03/15/2015 Assessment & Plan (05/03/2024 1:39 PM CEO AND FOUNDER): Chronic and stable. Continue paroxetine. Assessment & [...] medication. Assessment & Plan (06/26/2021 9:55 AM CEO AND FOUNDER): Uncontrolled. Stop fluoxetine. Start paroxetine 20 mg daily. Start lorazepam 0.5 mg twice daily scheduled. Essential hypertension 03/15/2015 Assessment & Plan (08/23/2024 2:29 PM CDT): Blood pressure is stable-continue current medication Assessment & Plan (05/03/2024 1:40 PM CEO AND FOUNDER): Chronic, controlled. Continue current lisinopril, metoprolol, furosemide [...] regimen. Assessment & Plan (07/16/2022 11:56 AM CEO AND FOUNDER): Blood pressure is stable-continue current medication Assessment & Plan (02/13/2022 12:44 PM CDT): Blood pressure is controlled-continue current medication Assessment & Plan (11/27/2021 12:12 PM CDT): BP under fair control-continue current medication Assessment & Plan (11/02/2021 10:47 AM CDT): Well controlled-continue current meds Assessment & Plan (06/26/2021 9:54 AM CEO AND FOUNDER): Controlled-continue current medication Assessment & Plan (07/31/2018 9:11 AM CEO AND FOUNDER): Fair control. Continue present regimen and work on exercise Resolved Problems Problem Noted Date Diagnosed Date Resolved Date Rib pain on left side 04/22/20242023 Assessment & Plan (05/03/2024 1:43 PM CEO AND FOUNDER): Recent problem, now resolved. Suspect rib injury after fall. Assessment & Plan (04/22/2024 9:28 PM CEO AND FOUNDER): Recent problem, pain is uncontrolled. No rib [...] 08/23/2024 Assessment & Plan (06/29/2023 9:41 PM CEO AND FOUNDER): New problem after fall. Lumbar spine, right hip and pelvis xray today without fracture. Degenerative changes noted. Suspect lumbar strain, cannot completely exclude lumbar or pelvic fracture and consider CT if pain fails to improve. Medrol Dosepak and Flexeril prescribed. Hope to avoid opioids but reconsider if needed. Urinary frequency 06/29/2023 08/20/2023 Assessment & Plan (06/29/2023 9:46 PM CEO AND FOUNDER): New problem today. Significance is unclear. Concern for potential hyperglycemia. POC glucose and urine dipstick are normal. Follow-up if worsening or fails to improve. Pyelonephritis 07/16/2022 01/31/2023 Assessment & Plan (07/16/2022 11:55 AM CEO AND FOUNDER): Clinically improved. Sent request for hospital records. Follow-up CBC, CMP today. Finish course of antibiotics. Follow-up with Urology as scheduled. Drug reaction 06/26/2021 08/09/2021 Assessment & Plan (06/26/2021 9:52 AM CEO AND FOUNDER): Stop gabapentin-listed as allergy. He should experience [...] keratosis Assessment & Plan (07/31/2018 9:13 AM CEO AND FOUNDER): New problem. Suspect this is a benign seborrheic keratosis. Plan to observe for now BMI 30.0-30.9,adult 07/06/2018 12/10/19 19 Assessment & Plan (07/31/2018 9:11 AM CEO AND FOUNDER): Discussed need for weight loss Recommend a diet high in fruits, vegetables, legumes and low in processed foods. Recommend regular physical activity as patient's condition allows. Assessment & Plan (07/06/2018 2:42 PM CEO AND FOUNDER): Reviewed diet, decrease caloric intake, decrease portion [...] Department Care Team Description 08/24/2024 Results Follow-Up [facility] Medical [facility] Primary [facility] at [place] [id number] [place] [address] [place] [id number] Zacarias Angel MD Urinalysis reflex to microscopic and culture Urine, Hemoglobin A1c, Thyroid Function [place], Additional followed-up results: 5 08/23/2024 2:35 PM CDT Lab [facility] [place] [facility] [address] [place] [phone] Medicare annual wellness visit, subsequent; Ventricular tachycardia [...] discrepancy 08/23/2024 2:00 PM CDT Office Visit [facility] Primary Care at [address] [phone] Zacarias Angel MD Medicare annual wellness visit, [...] S/P right hip fracture 07/14/2024 Orders Only [facility] Primary Care at [address] [address] Zacarias Angel MD from Last 3 Months [...] drink = 0.6 oz pur e alcohol) [facility] Utilities Answer Date Recorded In the past [...] often do you attend chur ch or rastafari services? Never 02/12/2024 Do you belong to any clubs o r organizations such as alevism groups, unions, fraternal or athletic groups, or [...]
--- OUTSIDE RECORDS SUMMARY | 2024-10-10 14:33 | XMS_ITS | Encounter Summary ---
Author Organization [facility] Address [address] [place] [address] Phone Care Team Providers Care Panel Machine Operator Name Role Phone Zacarias Angel MD Primary Care Provider + [phone] Khadijah Mercado MA Unavailable [phone] 1 Sherin Arita MA Unavailable Iveth Dawn RN Unavailable [phone] Debbie Rodriguez [facility] Unavailable Lily Freire RN Unavailable [phone] Misty Osuna ice grinder Unavailable UnavailSelene Cervantes RN Unavailable [phone] Misty Osuna ice grinder Unavailable UnavailZacarias Theodore MD Primary Care Provider + [phone] Go SHAH MD, Sebastien Paz Unavailable Encounter Details Date Type Department Care Team (Late st Contact Info) Description 07/29/2017 Orders Only [facility] ProviderElle MD [address] [place] [address] Social History Tobacco Use Types [...] on file Legal Sex 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 us Historical Provider LAB BLOOD ORDERABLES Vanessa l Result documented in this encounter Visit Diagnoses Not on filedocumented in this encounter Additional Health Concerns Infection Onset Date Last Indicated Resolved Time COVID: Suspected 04/11/2020 04/11/2020 04/11/2020 6:54 PM CHILI POWDER MIXER COVID19 04/11/2020 04/11/2020 04/26/2020 3:06 AM CHILI POWDER MIXER COVID: Recovered Comment:Added based on recent COVID infection. 04/26/2020 04/26/2020 08/24/2020 3:06 AM C DT COVID: Suspected 03/16/2021 03/16/2021 03/17/2021 3:56 AM CDT documented as of this encounter Care Teams Panel Machine Operator Relationship Specialty Start Date End Date Zacarias Angel MD PCP - General 08/23/16 08/22/24 [place] [id number] [facility] [place] [address] PCP - General Internal Medicine 08/23/24 Khadijah Mercado MA [address] [place] [address] ACO Care Accounts Adjustable Clerk 11/20/18 11/23/18 Sehrin Arita MA [address] [place] [address] [address] [place] [address] ACO Care Accounts Adjustable Clerk 04/13/20 04/13/20 Iveth Dawn, JAQUI [address] [place] [address] [address] [place] [address] [employer] 05/09/21 06/10/21 Debbie Rodriguez, [address] [place] [address] Pharmacist Pharmacy 12/21/21 05/05/22 Lily Freire, JAQUI [address] [place] [address] [address] [place] [address] [employer] 07/11/22 07/28/22 Misty Osuna, [facility] ACO Medication Hydroelectric Station Operator Pharmacy 02/21/23 05/28/23 Selene Rod RN [address] [place] [address] [address] [place] [address] [employer] 02/12/24 03/24/24 Misty Osuna, [facility] ACO Medication Hydroelectric Station Operator Pharmacy 03/26/24 04/25/24 Sbeastien Stiles III, MD [address] [facility] [address] [address] Consulting Physician Cardiology 08/23/24 documented as of this encounter
[2024-10-10] MEDS: IPRATROPIUM 0.5 MG/ALBUTEROL SULFATE 2.5 MG AMPUL.NEB 3 ML INHALATION ×3 (15:02→15:03)
[2024-10-10 15:09] LABS: Alveolar/Arterial O2 Gradient 85.9 mmHg; Base Excess ABG 1.1 mEq/l (+/-2.0); Fractional Inspired Oxygen 28 %; HCO3 ABG 25.1 mEq/l (22.0-26.0); Oxygen Content ABG 20.1 %vol (16.0-22.0); Oxygen Saturation ABG 94.5 % (95.0-100.0); Oxyhemoglobin 92.9 % THb (90.0-100.0); PCO2 ABG 37.9 mmHg (35.0-45.0); PO2 FiO2 Ratio Arterial Blood 2.46 %; Total Hemoglobin 15.4 g/dL (12.0-18.0); pH ABG 7.439 (7.350-7.450)
[2024-10-10 15:11] LABS: Device NASAL CANNULA; Modified Allen's Test Pass; Site Drawn LEFT RADIAL
[2024-10-10] MEDS: methylPREDNISolone SOD SUCC 125 MG VIAL IV PUSH (15:12)
[2024-10-10 15:14] LABS: Basophils Absolute Auto 0.1 K/mm3 (0.0-0.1); Basophils Percent Auto 0.8 % (0.2-1.2); Eosinophils Percent Auto 0.4 % (0-4.4); Hematocrit 43.2 % (42.0-52.0); Hemoglobin 14.6 g/dL (14.0-18.0); Immature Granulocyte Absolute 0.16 K/mm3 (0.00-0.031); Immature Granulocyte Percent A 1.5 % (0-0.5); Lymphocytes Absolute Auto 2.35 K/mm3 (0.9-3.2); Lymphocytes Percent Auto 22.1 % (18.3-44.2); Mean Corpuscular HGB Conc 33.8 g/dl (32-36); Mean Corpuscular Volume 88.9 fl (80-100); Mean Platelet Volume 10.2 fl (7.4-10.4); Monocytes Absolute Auto 0.9 K/mm3 (0.1-0.6); Monocytes Percent Auto 8.1 % (2.6-8.5); Neutrophils Absolute Auto 7.1 K/mm3 (1.3-6.7); Neutrophils Percent Auto 67.1 % (45.5-73.1); Platelet Count Result 220 k/mm3 (150-375); Red Blood Count 4.86 M/mm3 (4.6-6.20); Red Cell Distribution Width 14.1 % (11.5-14.5); White Blood Count 10.6 K/mm3 (4.5-10.0)
[2024-10-10] MEDS: MAGNESIUM SULF 2 GM/WATER 50ML 2 GM/50 ML BAG IVPB (15:15)
[2024-10-10 15:24] LABS: Alanine Aminotransferase 49 U/L (6-50); Albumin Level 4.2 g/dL (3.5-5.1); Alkaline Phosphatase 94 U/L (38-126); Anion Gap 8 mmol/L (4-12); Aspartate Amino Transferase 47 U/L (17-59); Bilirubin,Total 0.9 mg/dL (0.2-1.3); Blood Urea Nitrogen 17 mg/dL (9-20); Calcium 8.7 mg/dL (8.4-10.2); Carbon Dioxide 27 mmol/L (22-30); Chloride 105 mmol/L (98-107); Estimated CRCL calculation 75 ml/min; Estimated Glomerular Filt Rate > 60; Glucose 147 mg/dL (65-110); Magnesium 1.8 mg/dL (1.6-2.3); Potassium 3.9 mmol/L (3.4-5.0); Sodium 140 mmol/L (137-145)
[2024-10-10 15:26] LABS: INR 1.1; Prothrombin Time 14.9 Seconds (11.1-14.7)
[2024-10-10 15:27] LABS: Partial Thromboplastin Time 29.2 Seconds (22.3-36.8)
[2024-10-10] MEDS: LORazepam INJ (*CRX) 2 MG/ML VIAL 0.5 MG IV PUSH (15:35)
[2024-10-10 15:36] LABS: NT Pro B Type Natriuretic Pept 422 pg/mL (19.9-100); Troponin I < 0.012 ng/mL (0.000-0.034)
== END 2024-10-10 16:57 | disposition home or self-care (01) ==
PROVIDERS: Emergency Provider Physician Assistant
DX: J45.901 Unspecified asthma with (acute) exacerbation (principal); J81.0 Acute pulmonary edema; I10 Essential (primary) hypertension; I48.91 Unspecified atrial fibrillation; E78.5 Hyperlipidemia, unspecified; G47.33 Obstructive sleep apnea (adult) (pediatric); G62.9 Polyneuropathy, unspecified; N40.0 Benign prostatic hyperplasia without lower urinary tract symptoms; Z87.891 Personal history of nicotine dependence; Z79.01 Long term (current) use of anticoagulants; Z79.899 Other long term (current) drug therapy
CPT/HCPCS: 36415; 36600; 71045; 80053; 82805; 83735; 83880; 84484; 85018; 85025; 85610; 85730; 93005; 94640; 96365; 96375; 99284; J1938; J2060; J2919; J3475